=== PATIENT | male | born 1960 | race Hispanic/Latino ===

== ENCOUNTER 2017-02-12 14:39 | Inpatient (IN) | payer OTHER ==
[2017-02-12 16:36] LABS: BASO # 0.1 K/uL (0.0-0.2); BASO % 0.6 % (0.0-2.0); EOS % 0.3 % (0.0-4.0); HEMOGLOBIN 15.7 g/dL (12.0-18.0); LYMPH # 2.4 K/uL (1.0-4.3); LYMPH % 19.7 % (20.0-40.0); MEAN CELL VOLUME 84.1 fL (80.0-94.0); MEAN CORPUSCULAR HGB CONC 33.3 g/dL (33.0-37.0); MEAN PLATELET VOLUME 8.6 fL (7.2-11.7); MONO # 0.8 K/uL (0.0-0.8); MONO % 6.2 % (0.0-10.0); NEUT # 8.9 K/uL (1.8-7.0); NEUT % 73.2 % (50.0-75.0); NRBC % 0.2 % (0.0-2.0); RBC 5.6 Mil/uL (4.40-5.90); RED CELL DISTRIBUTION WIDTH 15.1 % (11.5-14.5); WHITE BLOOD COUNT 12.2 K/uL (4.8-10.8)
[2017-02-12 16:41] LABS: INR 1.2; PROTHROMBIN TIME 13.8 SECONDS (9.7-12.2)
[2017-02-12 16:43] LABS: ALB/GLOB RATIO 1.3 (1.0-2.1); ALT/SGPT 58 U/L (21-72); AST/SGOT 46 U/L (17-59); BLOOD UREA NITROGEN 16 mg/dL (9-20); CALCIUM 8.6 mg/dl (8.6-10.4); GFR AFRICAN-AMERICAN > 60; GFR NON-AFRICAN AMERICAN > 60; MAGNESIUM 1.8 mg/dL (1.6-2.3)
--- NOTE | 2017-02-12 16:43 | RAD ---
PROCEDURE: CHEST RADIOGRAPH, 1 VIEW HISTORY: SOB COMPARISON: None available. FINDINGS: LUNGS: Increase opacity medial right lung base - right medial basal infiltrate possible. Confluent right infrahilar pulmonary venous congestion early coalescent pulmonary edema another consideration. Chronicity unknown. Limited visualization of the left lung base/left hemidiaphragm PLEURA: Small left pleural effusion suspect. No pneumothorax CARDIOVASCULAR: Marked cardiomegaly central pulmonary vascular congestion OSSEOUS STRUCTURES: No significant abnormalities. VISUALIZED UPPER ABDOMEN: Normal. OTHER FINDINGS: None. IMPRESSION: Cardiomegaly and central pulmonary venous congestion. Small left pleural effusion probable. Medial right basal hazy opacity here a patchy infiltrate versus coalescent pulmonary edema are considerations. -chronicity of this appearance unknown. Large body habitus noted
[2017-02-12 16:55] LABS: B-TYPE NATRIURETIC PEPTIDE 2520 pg/mL (0-900)
[2017-02-12 17:00] LABS: FREE T4 1.46 ng/dL (0.78-2.19)
--- NOTE | 2017-02-12 17:45 | C.PDOC ---
Time Seen by Provider: 02/12/17 15:48 Chief Complaint (Nursing): Shortness Of Breath History Per: Patient Onset/Duration Of Symptoms: Days (about 2 weeks) Current Symptoms Are (Timing): Worse Exacerbating Factor(s): Exertion, Laying Flat Current Respiratory Medications: None Severity: Moderate Additional History Per: Prior Records Past Medical History Reviewed: Historical Data, Nursing Documentation, Vital Signs Vital Signs: Last Vital Signs Temp 98.9 F 02/12/17 15:18 Pulse 151 H 02/12/17 15:18 Resp 24 02/12/17 15:18 BP 143/84 02/12/17 15:18 Pulse Ox 94 L 02/12/17 17:45 - Medical History PMH: Atrial Fibrillation - [place] Procedures INSERT INDWELLING CATH (03/10/14) Family History: States: Unknown Family Hx - Social History Hx Tobacco Use: No Hx Alcohol Use: Yes Hx Substance Use: No - Immunization History Hx Tetanus Toxoid Vaccination: No Hx Influenza Vaccination: No Hx Pneumococcal Vaccination: No Review Of Systems Except As Marked, All Systems Reviewed And Found Negative. Constitutional: Negative for: Fever Cardiovascular: Positive for: Orthopnea Respiratory: Positive for: Shortness of Breath Gastrointestinal: Positive for: Abdominal Pain (distension). Negative for: Vomiting Genitourinary: Negative for: Dysuria Musculoskeletal: Negative for: Neck Pain, Back Pain, Leg Pain Skin: Negative for: Rash Neurological: Negative for: Weakness, Numbness Physical Exam - Physical Exam Appears: In Acute Distress Skin: Normal Color, Warm, Dry, No Rash Head: Atraumatic, Normacephalic Eye(s): bilateral: PERRL, EOMI Neck: Normal ROM, Supple Cardiovascular: Rhythm Irregular (tachycardia) Respiratory: No Accessory Muscle Use, Rales (at b/l bases) Gastrointestinal/Abdominal: Soft, No Tenderness Back: No CVA Tenderness Extremity: Normal ROM, Pedal Edema (trace), No Calf Tenderness Neurological/Psych: Oriented x3, Normal Motor, Normal Sensation ED Course And Treatment - Laboratory Results Result Diagrams: 02/12/17 16:27 02/12/17 16:27 Lab Interpretation: Abnormal Interpretation Of Abnormal: Elevated BNP ECG: Interpreted By Me, Viewed By Me ECG Rhythm: Atrial Fibrillation, Nonspecific Changes ECG Interpretation: Abnormal Interpretation Of ECG: Afib with RVR Rate From EC O2 Sat by Pulse Oximetry: 94 Pulse Ox Interpretation: Other Interpretation Of Abnormal: Borderline - Radiology CXR: Viewed By Me, Read By Radiologist CXR Interpretation: Yes: Cardiomegaly, Other (CHF) Progress Note: HR controlled with IV Cardizem. Reassessment Condition: Improved Progress - Interventions Interventions:: Observation, Oxygen - Medications Administered Intravenous: Other (Cardizem) - Data Reviewed Data Reviewed: Lab, Diagnostic imaging, EKG, Old records - Patient Status Patient status: Partially improved - Critical Care Citical Care: Excluding Proc Time Critical Care Time: 60 minutes - Continuity of Care Discussed patient case with:: Patient, ED Nurse, PMD - Patient Plan Patient Plan: Admission, Telemetry Disposition Discussed With Dr.: Umair Aparicio Comment: He accepted pt on his service. Doctor Will See Patient In The: Hospital Counseled Patient/Family Regarding: Studies Performed, Diagnosis - Disposition Disposition: HOSPITALIZED Disposition Time: 17:50 Condition: IMPROVED - Clinical Impression Clinical Impression: Rapid atrial fibrillation, New onset of congestive heart failure
[2017-02-13 06:21] LABS: HEMOGLOBIN 14.8 g/dL (12.0-18.0); MEAN CELL VOLUME 84.5 fL (80.0-94.0); MEAN CORPUSCULAR HEMOGLOBIN 28.7 pg (27.0-31.0); MEAN CORPUSCULAR HGB CONC 33.9 g/dL (33.0-37.0); RBC 5.18 Mil/uL (4.40-5.90); RED CELL DISTRIBUTION WIDTH 14.9 % (11.5-14.5); WHITE BLOOD COUNT 10.4 K/uL (4.8-10.8)
[2017-02-13 06:37] LABS: ALB/GLOB RATIO 1.2 (1.0-2.1); ALBUMIN 3.7 g/dL (3.5-5.0); ALT/SGPT 57 U/L (21-72); AST/SGOT 48 U/L (17-59); BLOOD UREA NITROGEN 19 mg/dL (9-20); CALCIUM 8.5 mg/dl (8.6-10.4); GFR AFRICAN-AMERICAN > 60; GFR NON-AFRICAN AMERICAN > 60
--- NOTE | 2017-02-13 07:19 | HP ---
HISTORY OF PRESENT ILLNESS: I was called on to the ER of [facility] for shortness of breath. This is a 56-year-old man with shortness of breath, who is a noncompliant according to my office. I sent him to web coordinator in the past. He did not really follow up. He has a history of CHF. He is morbidly obese. He has been dealing with shortness of breath for about 2 weeks. Following he came into the emergency room, when he started to lie flat, he could not do it. No acute vision or hearing changes. No sore throat. No chest pain, but shortness of breath. No palpitations. No nausea, vomiting, constipation, or diarrhea. Extremities are a little bit swollen. PAST MEDICAL HISTORY: Questionable hypertension with history. He had lot of tests done. SOCIAL HISTORY: Does drink alcohol. No tobacco. No substance abuse. PHYSICAL EXAMINATION: VITAL SIGNS: He has a temperature of 98.9, 151 pulse, respiratory rate 24, 143/84 blood pressure, and 94% O2 saturation. HEENT: Head: Atraumatic, normocephalic. Extraocular muscles are intact. Pupils are equal and reactive to light and accommodation. Throat is moist. NECK: Supple. Thyroid is midline. No palpable appreciable lymphadenopathy. HEART: Irregular rate, mary-tachy and irregular. LUNGS: Decreased breath sounds bilaterally. ABDOMEN: Morbidly obese. Soft, nontender. Positive bowel sounds. No guarding. No rebound. No CVA tenderness. EXTREMITIES: A +1/4 pitting edema bilaterally. SKIN: For the most part is intact. No apparent ulcers or rashes. NEUROLOGIC: Not anxious. LABORATORY DATA: He has 134 sodium, potassium is 4.4, BUN 16, creatinine 0.8,sugar is 109, calcium is 8.6, magnesium 1.8, total bilirubin is 1.4, AST is 46, ALT is 58, alkaline phosphatase 52, troponin I is 0.035, BNP is 2520 - quite high, total protein is 7.1, albumin is 4, TSH is 1.54, and INR is 1.2. He has 12.2 white count, 15.7 hemoglobin, 47.1 hematocrit, with 259 platelets. He did have a chest x-ray that showed cardiomegaly. He has pulmonary venous congestion as well as pleural effusion and possible patchy infiltrate. PLAN: We will have Pulmonary and Cardiology consults, IV antibiotics, IV Lasix, Cardizem p.o. for the time being, he was on IV Cardizem when he got here. Hopefully will do well, get oxygen, and telemetry. Umair Aparicio DO MTDKalina
--- NOTE | 2017-02-13 08:20 | PN ---
DATE: SUBJECTIVE: He is resting comfortably in Intensive Care Unit. His heart rate has been up and down to 120s to 130 with rapid AFib. He is on aspirin. He is on Cardizem, Lasix IV, Lovenox and Avelox. PHYSICAL EXAMINATION: GENERAL: He is sitting up, resting comfortably in bed, unaware of the rapid heart rate. VITAL SIGNS: 98 temp, 108 pulse, 116/88 blood pressure, 18 respiratory rate and 98% O2 sat on 2 L nasal cannula. HEENT: His head is atraumatic, normocephalic. HEART: Tachy and irregular. LUNGS: Decreased breath sounds, but clear. Less congestion. ABDOMEN: Soft, obese, nontender. EXTREMITIES: Less edema with Lasix. LABORATORY DATA: He has a 10.4 white count, better; 14.8 hemoglobin, 43.8 hematocrit with a 207 platelets. He has a 136 sodium, potassium 4.4, BUN 19, creatinine 0.8, GFR is greater than 60, sugar is 92, calcium is 8.5, total bili is 1.2, AST is 48, ALT is 57, alk phos 41, total protein 6.7, TSH is 1.54. ASSESSMENT AND PLAN: There is a consult with Pulmonary and consult with Cardiology pending. He is on antibiotics for pneumonia. He is on some Cardizem for rapid atrial fibrillation. We will have to increase that. Wait for Cardiology recommendation. He is on Lovenox. He is in the Intensive Care Unit. He is here for rapid atrial fibrillation and pneumonia. Umair Aparicio DO
[2017-02-13] MEDS: Enoxaparin 40 mg Syringe SC SCH (10:00)
[2017-02-13] MEDS: Moxifloxacin IV 400mg/250ml NS 400 MG/250 ML BAG IVPB SCH (10:00)
--- NOTE | 2017-02-13 13:54 | CP.PCM.CON ---
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 The pt was diagnosed with atrial fib two years ago, treated by Dr Giron of [place]. Pt had a cath, told of normal coronary arteries and reduced heart function. He took sotaolol and it mad him dizzy. He stopped it for this reason. Plavix, asa and later a NOAC all caused hematuria (pt sees Dr Lozano and has had a TURP). ECG demonstrated rapid atrial fib and cxr revealed chf. Pt's [id number] score is 1 Review of Systems - Review of Systems All systems: reviewed and no additional remarkable complaints except (as above) Past Patient History - Past Medical History & Family History Past Medical History?: Yes - Past Social History Smoking Status: Former Smoker - CARDIAC Hx Cardiac Disorders: Yes Hx Atrial Fibrillation: Yes - PULMONARY Hx Respiratory Disorders: No - NEUROLOGICAL Hx Neurological Disorder: No - HEENT Hx HEENT Problems: No - RENAL Hx Chronic Kidney Disease: No - ENDOCRINE/METABOLIC Hx Endocrine Disorders: No - HEMATOLOGICAL/ONCOLOGICAL Hx Blood Disorders: No - INTEGUMENTARY Hx Dermatological Problems: No - MUSCULOSKELETAL/RHEUMATOLOGICAL Hx Musculoskeletal Disorders: No Hx Falls: No - GASTROINTESTINAL Hx Gastrointestinal Disorders: No - GENITOURINARY/GYNECOLOGICAL Hx Genitourinary Disorders: Yes Hx Prostate Problems: Yes Other/Comment: Resected prostate 4 yrs ago - PSYCHIATRIC Hx Psychophysiologic Disorder: No Hx Substance Use: No - SURGICAL HISTORY Hx Surgeries: Yes Other/Comment: TURP 4yrs ago - ANESTHESIA Hx Anesthesia: Yes Hx Anesthesia Reactions: No Hx Malignant Hyperthermia: No Has any member of the family had a problem w/ anesthesia?: No Meds Allergies/Adverse Reactions: Allergies Allergy/AdvReac Type Severity Reaction Status Date / Time Penicillins Allergy Verified 02/12/17 15:21 - Medications Medications: Current Medications Aspirin (Aspirin Chewable) 81 mg PO DAILY [facility] Last Admin: 02/13/17 10:00 Dose: 81 mg Diltiazem HCl (Cardizem) 30 mg PO QID [facility] Last Admin: 02/13/17 10:00 Dose: 30 mg Enoxaparin Sodium (Lovenox) 40 mg SC DAILY [facility] Last Admin: 02/13/17 10:00 Dose: 40 mg Furosemide (Lasix) 40 mg IVP DAILY [facility] Last Admin: 02/13/17 10:00 Dose: 40 mg Moxifloxacin HCl (Avelox Iv 400mg/250ml Ns) 400 mg in 250 mls @ 167 mls/hr IVPB DAILY [facility] Last Admin: 02/13/17 10:00 Dose: 167 mls/hr Physical Exam - Constitutional Appears: Unkempt - Head Exam Head Exam: ATRAUMATIC - Eye Exam Eye Exam: EOMI Pupil Exam: PERRL - ENT Exam ENT Exam: Mucous Membranes Moist - Neck Exam Neck exam: Positive for: Normal Inspection - Respiratory Exam Respiratory Exam: Rales - Cardiovascular Exam Cardiovascular Exam: Irregular Rhythm - GI/Abdominal Exam GI & Abdominal Exam: Normal Bowel Sounds - Exam External exam: NORMAL EXTERNAL EXAM - Extremities Exam Extremities exam: Positive for: normal inspection - Back Exam Back exam: NORMAL INSPECTION - Neurological Exam Neurological exam: Alert, CN II-XII Intact, Oriented x3, Reflexes Normal - Psychiatric Exam Psychiatric exam: Normal Affect - Skin Skin Exam: Normal Color Results - Vital Signs Recent Vital Signs: Last Vital Signs Temp 98 F 02/13/17 05:00 Pulse 108 H 02/13/17 05:00 Resp 18 02/13/17 05:00 BP 129/90 02/13/17 10:00 Pulse Ox 98 02/13/17 05:00 - Labs Result Diagrams: 02/13/17 06:15 02/13/17 06:17 Labs: Laboratory Results - last 24 hr 02/12/17 02/12/17 02/12/17 16:27 16:27 16:27 WBC 12.2 H RBC 5.60 Hgb 15.7 Hct 47.1 MCV 84.1 MCH 28.0 MCHC 33.3 RDW 15.1 H Plt Count 259 MPV 8.6 Neut % (Auto) 73.2 Lymph % (Auto) 19.7 L Benson % (Auto) 6.2 Eos % (Auto) 0.3 Baso % (Auto) 0.6 Neut # 8.9 H Lymph # 2.4 Benson # 0.8 Eos # 0.0 Baso # 0.1 PT 13.8 H INR 1.2 APTT 27 Sodium 134 Potassium 4.4 Chloride 102 Carbon Dioxide 24 Anion Gap 12 BUN 16 Creatinine 0.8 Est GFR ( Amer) > 60 Est GFR (Non-Af Amer) > 60 Random Glucose 109 Calcium 8.6 Magnesium 1.8 Total Bilirubin 1.4 H AST 46 ALT 58 Alkaline Phosphatase 52 Troponin I 0.0350 NT-Pro-B Natriuret Pep 2520 H Total Protein 7.1 Albumin 4.0 Globulin 3.1 Albumin/Globulin Ratio 1.3 Free T4 TSH 3rd Generation 02/12/17 02/13/17 02/13/17 16:27 06:15 06:17 WBC 10.4 RBC 5.18 Hgb 14.8 Hct 43.8 MCV 84.5 MCH 28.7 MCHC 33.9 RDW 14.9 H Plt Count 207 MPV 9.0 Neut % (Auto) Lymph % (Auto) Benson % (Auto) Eos % (Auto) Baso % (Auto) Neut # Lymph # Benson # Eos # Baso # PT INR APTT Sodium 136 Potassium 4.4 Chloride 102 Carbon Dioxide 25 Anion Gap 13 BUN 19 Creatinine 0.8 Est GFR ( Amer) > 60 Est GFR (Non-Af Amer) > 60 Random Glucose 92 Calcium 8.5 L Magnesium Total Bilirubin 1.2 AST 48 ALT 57 Alkaline Phosphatase 41 Troponin I NT-Pro-B Natriuret Pep Total Protein 6.7 Albumin 3.7 Globulin 3.0 Albumin/Globulin Ratio 1.2 Free T4 1.46 TSH 3rd Generation 1.54 - EKG Data EKG Interpreted by: Myself (rapid atrial fibrillation, possible old IMI) Assessment & Plan - Assessment and Plan (Free Text) Assessment: 1. Rapid atrial fibrillaiton with chf. Plan 1. rate control: start beta ander. add meds for rate control as bp allows. 2. Low chads score. Pt has had bleeding risks in the past. will Rx with plavix/ asa 81 for now. Pt understands that if his rate cannot be controlled, or he is still symptomatic, then cardioversion would be advised, necessitating anticoagulation for at least 6 weeks post conversion. 3. echo to assess LV EF. 4. Outpatient sleep study is advised. 5. TSH
[2017-02-13] MEDS: Metoprolol Succinate 50 mg XL Tab PO SCH (14:21)
--- NOTE | 2017-02-14 06:52 | DS ---
HISTORY OF PRESENT ILLNESS: He is resting comfortably in bed. He is normal sinus rhythm. He can go for an echo this morning. He is doing much better. Cardiology says he can be discharged today. PHYSICAL EXAMINATION: VITAL SIGNS: 98 temp, 95 pulse, 116/83 blood pressure, 20 respiratory rate, 95% O2 sat on room air. GENERAL: He slept well. He is alert and oriented x3. HEENT: Head is atraumatic, normocephalic. HEART: Regular rate. LUNGS: Clear to auscultation. ABDOMEN: Soft, obese, nontender. Positive bowel sounds. EXTREMITIES: No edema. MEDICATIONS: He is currently on aspirin, Avelox, Cardizem, Lasix, Lovenox, Plavix and Toprol. LABORATORY DATA: He has a 136 sodium, potassium 4.4, BUN 19, creatinine 0.8, GFR is greater than 60, sugar is 92, calcium is 8.5, total bili is 1.2. AST is 48, ALT is 57, alk phos is 41. Troponin was 0.035. BNP was 2520 and 6.7 total protein and TSH is 1.54. INR is 1.2. 10.4 white count, 14.8 hemoglobin, 207 platelets. ASSESSMENT AND PLAN: He is doing better. He gets his echocardiogram today. I will keep him on his same medications. Follow up in the office in a week. He had rapid atrial fibrillation with congestive heart failure, pneumonia. Umair Aparicio DO
[2017-02-14] MEDS: Metoprolol Succinate 50 mg XL Tab PO SCH (10:50)
[2017-02-14] MEDS: Enoxaparin 40 mg Syringe SC SCH (10:50)
[2017-02-14] MEDS: Moxifloxacin IV 400mg/250ml NS 400 MG/250 ML BAG IVPB SCH (10:54)
[2017-02-14] MEDS ORDERED: Perflutren Lipid Microsphere 1.5 ML SUS IV ONE (12:22)
[2017-02-14] MEDS ORDERED: Metoprolol Succinate 100 mg XL Tab PO ONE (14:00)
[2017-02-14] MEDS ORDERED: Metoprolol Succinate 25 mg XL Tab PO ONE (14:00)
[2017-02-14 17:11] LABS: HEMOGLOBIN 14.6 g/dL (12.0-18.0); MEAN CELL VOLUME 85.1 fL (80.0-94.0); MEAN CORPUSCULAR HEMOGLOBIN 27.6 pg (27.0-31.0); MEAN CORPUSCULAR HGB CONC 32.4 g/dL (33.0-37.0); MEAN PLATELET VOLUME 8.4 fL (7.2-11.7); RBC 5.31 Mil/uL (4.40-5.90); RED CELL DISTRIBUTION WIDTH 15.3 % (11.5-14.5)
[2017-02-14 17:19] LABS: BLOOD UREA NITROGEN 18 mg/dL (9-20); CALCIUM 8.3 mg/dl (8.6-10.4); GFR AFRICAN-AMERICAN > 60; GFR NON-AFRICAN AMERICAN > 60; MAGNESIUM 1.8 mg/dL (1.6-2.3)
--- NOTE | 2017-02-14 19:10 | CARD ---
APPROVED REPORT EXAM: Two-dimensional and M-mode echocardiogram with Doppler, color Doppler with contrast. Other Information Quality : TDSRhythm : Atrial Fibrillation INDICATION Dyspnea Congestive Heart Failure Definity Contrast Used. 2D DIMENSIONS IVSd1.3 (0.7-1.1cm)LVDd7.0 (3.9-5.9cm) PWd1.2 (0.7-1.1cm)LVDs6.5 (2.5-4.0cm) FS (%) 7.1 %LVEF (%)15.3 (>50%) M-Mode DIMENSIONS Left Atrium (MM)5.76 (2.5-4.0cm)Aortic Root3.51 (2.2-3.7cm) Aortic Cusp Exc.2.09 (1.5-2.0cm) Mitral Valve MV E Gaojzjfl74.3cm/sE/A ratio0.0 TDI E/Lateral E'0.0E/Medial E'0.0 Tricuspid Valve TR Peak [id number]/sTR Peak Gr.[id number] LEFT VENTRICLE The Left Ventricle is moderately dilated. The ejection fraction is severely impaired. RIGHT VENTRICLE The right ventricle is normal size. ATRIA The left atrium is moderately dilated. AORTIC VALVE The aortic valve is normal in structure. MITRAL VALVE Mitral regurgitation is mild. TRICUSPID VALVE There is moderate tricuspid regurgitation. <Conclusion> Severe LV systlolic dysfunction. Dilated LA and LV. Mild MR. Moderate TR.
--- NOTE | 2017-02-15 07:04 | CARD ---
APPROVED REPORT EKG Measurement Heart [id number] <Conclusion> Atrial fibrillation with rapid ventricular response RSR' or QR pattern in V1 suggests right ventricular conduction delay Left anterior fascicular block ST & T wave abnormality, consider lateral ischemia Abnormal ECG
[2017-02-15 08:23] LABS: HEMOGLOBIN 15.5 g/dL (12.0-18.0); MEAN CELL VOLUME 84.3 fL (80.0-94.0); MEAN CORPUSCULAR HEMOGLOBIN 28.9 pg (27.0-31.0); MEAN CORPUSCULAR HGB CONC 34.2 g/dL (33.0-37.0); MEAN PLATELET VOLUME 8.6 fL (7.2-11.7); RBC 5.37 Mil/uL (4.40-5.90); RED CELL DISTRIBUTION WIDTH 15.5 % (11.5-14.5); WHITE BLOOD COUNT 10.6 K/uL (4.8-10.8)
[2017-02-15 08:45] LABS: ALB/GLOB RATIO 1.2 (1.0-2.1); ALBUMIN 3.7 g/dL (3.5-5.0); ALT/SGPT 45 U/L (21-72); AST/SGOT 42 U/L (17-59); BLOOD UREA NITROGEN 19 mg/dL (9-20); CALCIUM 8.5 mg/dl (8.6-10.4); GFR AFRICAN-AMERICAN > 60; GFR NON-AFRICAN AMERICAN > 60
--- NOTE | 2017-02-15 09:30 | CP.PCM.PN ---
Subjective - Date & Time of Evaluation Date of Evaluation: 02/15/17 Time of Evaluation: 09:28 - Subjective Subjective: Pt feels better. HR 110 BPM. EF is 15%. Objective - Vital Signs/Intake and Output Vital Signs (last 24 hours): Temp Pulse Resp BP Pulse Ox 98.0 F 95 H 18 122/88 95 02/15/17 08:53 02/15/17 08:53 02/15/17 08:53 02/15/17 08:53 02/15/17 08:53 - Medications Medications: Current Medications Aspirin (Aspirin Chewable) 81 mg PO DAILY [facility] Last Admin: 02/14/17 10:49 Dose: 81 mg Clopidogrel Bisulfate (Plavix) 75 mg PO DAILY [facility] Last Admin: 02/14/17 10:49 Dose: 75 mg Enoxaparin Sodium (Lovenox) 40 mg SC DAILY [facility] Last Admin: 02/14/17 10:50 Dose: 40 mg Furosemide (Lasix) 40 mg IVP DAILY [facility] Last Admin: 02/14/17 10:50 Dose: 40 mg Moxifloxacin HCl (Avelox Iv 400mg/250ml Ns) 400 mg in 250 mls @ 167 mls/hr IVPB DAILY [facility] Last Admin: 02/14/17 10:54 Dose: 167 mls/hr Lisinopril (Zestril) 5 mg PO DAILY [facility] Last Admin: 02/14/17 18:17 Dose: 5 mg Metoprolol Succinate (Toprol Xl) 100 mg PO DAILY [facility] Spironolactone (Aldactone) 25 mg PO DAILY [facility] Last Admin: 02/14/17 18:17 Dose: 25 mg - Labs Labs: 02/15/17 07:58 02/15/17 07:58 PT 13.8 SECONDS (9.7-12.2) H 02/12/17 16:27 INR 1.2 02/12/17 16:27 APTT 27 SECONDS (21-34) 02/12/17 16:27 - Constitutional Appears: Well - Head Exam Head Exam: NORMAL INSPECTION - Eye Exam Eye Exam: EOMI Pupil Exam: NORMAL ACCOMODATION - ENT Exam ENT Exam: Mucous Membranes Moist - Respiratory Exam Respiratory Exam: Clear to Ausculation Bilateral - Cardiovascular Exam Cardiovascular Exam: Irregular Rhythm - GI/Abdominal Exam GI & Abdominal Exam: Normal Bowel Sounds - Exam External exam: NORMAL EXTERNAL EXAM - Extremities Exam Extremities Exam: Normal Inspection - Neurological Exam Neurological Exam: Alert, Awake, Normal Gait, Oriented x3 - Psychiatric Exam Psychiatric exam: Normal Affect, Normal Mood Assessment and Plan - Assessment and Plan (Free Text) Assessment: Afib/CHF: 1. Plan is stop asa/plavix, start eliquis. If pt tolerates it and no hematuria, then outpatient cardioversion, followed by amiodarone. 2. Increases beta ander and increase cristino inhibitor. 3. Life vest. [facility]
[2017-02-15] MEDS: Metoprolol Succinate 100 mg XL Tab PO SCH (10:26)
[2017-02-15] MEDS: Moxifloxacin IV 400mg/250ml NS 400 MG/250 ML BAG IVPB SCH (10:26)
--- NOTE | 2017-02-15 12:51 | PN ---
DATE: SUBJECTIVE: I saw him in [facility], resting comfortably in bed. He slept fairly well last night. I was going to discharge him yesterday until his 2D echo came back at 10% ejection fraction and I believe Cardiology wants to place him with the vest and even possibly defibrillator. He is on Aldactone, aspirin, Avelox IV, Lasix, Lovenox, Plavix, metoprolol, Zestril. PHYSICAL EXAMINATION: VITAL SIGNS: 97.3 temperature, 73 pulse, 125/83 blood pressure, 18 respiratory rate, 95% O2 sat on room air. HEENT: Head is atraumatic, normocephalic. Throat is moist. NECK: Supple. HEART: Regular rate. LUNGS: Decreased breath sounds, were clear to auscultation. ABDOMEN: Morbidly obese. Soft, nontender. Positive bowel sounds. No guarding. No rebound. No CVA tenderness. EXTREMITIES: With no edema. LABORATORY DATA: He has a 10.6 white count, 15.5 hemoglobin, 45.3 hematocrit, and 247 platelets. He has a 133 sodium, potassium 4.1, BUN 19, creatinine 0.9, GFR greater than 60, sugar is 92, calcium is 8.5. Total bili is 1.3, AST is 42, ALT is 45, alkaline phosphatase 47. BNP was high as 2520, he is on Lasix. Total protein 6.7, TSH is 1.54. ASSESSMENT AND PLAN: He was seen by Dr. Leach. He had an echocardiogram. Because of low ejection fraction, severe left ventricular systolic dysfunction, dilated left atrium and left ventricle, we will see what the director process engineering wants to do next, as per Cardiology when he could be discharged. He has rapid atrial fibrillation, CHF, pneumonia, and now, might need to be in a LifeVest. Umair Aparicio DO MTDKalina
--- NOTE | 2017-02-15 17:24 | CP.PCM.PN ---
Subjective - Date & Time of Evaluation Date of Evaluation: 02/15/17 Time of Evaluation: 17:19 - Subjective Subjective: PATIENT WAS ADMITTED FOR RAPID AFIB AND NEW ONSET CHF; EF IS AROUD 15% CONSULT DR DIAZ HELP APPRECIATED CLEAR PATIENT TO DC ON ELIQUIS AND LIFEVEST PRIOR TO DC PATIENT HAD HEMATURIA NOTED BY THE STAFF NURSE PATIENT COMPLAINING OF HEMATURIA ON AND OFF EVERY TIME THAT A DOCTOR START HIM ON BLOOD [facility] COORDINATOR NOTIFIED DR DIAZ AND DR LOU CONSULT DR WAITE PENDING PATIENT WILL BE DC AFTER DR WAITE RECOMMENDATION Objective - Vital Signs/Intake and Output Vital Signs (last 24 hours): Temp Pulse Resp BP Pulse Ox 98.1 F 79 20 107/75 96 02/15/17 16:43 02/15/17 16:43 02/15/17 16:43 02/15/17 16:43 02/15/17 16:43 Intake and Output: 02/15/17 02/15/17 06:59 18:59 Intake Total 550 Balance 550 - Medications Medications: Current Medications Apixaban (Eliquis) 5 mg PO BID [facility] Last Admin: 02/15/17 10:27 Dose: Not Given Furosemide (Lasix) 40 mg IVP DAILY [facility] Last Admin: 02/15/17 10:25 Dose: 40 mg Moxifloxacin HCl (Avelox Iv 400mg/250ml Ns) 400 mg in 250 mls @ 167 mls/hr IVPB DAILY [facility] Last Admin: 02/15/17 10:26 Dose: 167 mls/hr Lisinopril (Zestril) 5 mg PO BID [facility] Last Admin: 02/15/17 10:25 Dose: 5 mg Metoprolol Succinate (Toprol Xl) 100 mg PO DAILY [facility] Last Admin: 02/15/17 10:26 Dose: 100 mg Spironolactone (Aldactone) 25 mg PO DAILY [facility] Last Admin: 02/15/17 10:25 Dose: 25 mg - Labs Labs: 02/15/17 07:58 02/15/17 07:58 PT 13.8 SECONDS (9.7-12.2) H 02/12/17 16:27 INR 1.2 02/12/17 16:27 APTT 27 SECONDS (21-34) 02/12/17 16:27
[2017-02-16 08:32] LABS: HEMOGLOBIN 14.8 g/dL (12.0-18.0); MEAN CELL VOLUME 85.1 fL (80.0-94.0); MEAN CORPUSCULAR HEMOGLOBIN 28.7 pg (27.0-31.0); MEAN CORPUSCULAR HGB CONC 33.7 g/dL (33.0-37.0); MEAN PLATELET VOLUME 8.3 fL (7.2-11.7); RBC 5.18 Mil/uL (4.40-5.90); RED CELL DISTRIBUTION WIDTH 14.8 % (11.5-14.5); WHITE BLOOD COUNT 9.2 K/uL (4.8-10.8)
[2017-02-16 08:43] LABS: ALBUMIN 3.3 g/dL (3.5-5.0); ALT/SGPT 42 U/L (21-72); AST/SGOT 35 U/L (17-59); BLOOD UREA NITROGEN 20 mg/dL (9-20); CALCIUM 8.1 mg/dl (8.6-10.4); GFR AFRICAN-AMERICAN > 60; GFR NON-AFRICAN AMERICAN > 60
[2017-02-16 08:46] LABS: ALB/GLOB RATIO 1.2 (1.0-2.1)
[2017-02-16] MEDS: Metoprolol Succinate 100 mg XL Tab PO SCH (09:30)
[2017-02-16] MEDS ORDERED: Iodixanol 320 MG/ML 100 ML BOTTLE IV ONE (11:46)
--- NOTE | 2017-02-16 13:39 | CT ---
PROCEDURE: CT Abdomen and Pelvis with and without intravenous contrast HISTORY: Hematuria COMPARISON: None. TECHNIQUE: Axial images of the abdomen were obtained in the pre contrast, portal venous and delayed phases of enhancement. Coronal and sagittal reformats were generated. Contrast dose: 100 mL Visipaque 320 Radiation dose: Total exam DLP = 4013.16 mGy-cm. This CT exam was performed using one or more of the following dose reduction techniques: Automated exposure control, adjustment of the mA and/or kV according to patient size, and/or use of iterative reconstruction technique. FINDINGS: LOWER THORAX: Unremarkable. The heart is mildly enlarged LIVER: Diffuse low-attenuation of the liver is noted suggestive of fatty liver. The portal vein is patent GALLBLADDER AND BILE DUCTS: Gallstones are noted without evidence of acute cholecystitis PANCREAS: The pancreas is grossly unremarkable. No evidence of pancreatic ductal dilatation. SPLEEN: Unremarkable. ADRENALS: Unremarkable. No mass. KIDNEYS AND URETERS: Unremarkable. No hydronephrosis. No solid mass. VASCULATURE: Unremarkable. No aortic aneurysm. BOWEL: Unremarkable. No obstruction. No gross mural thickening. APPENDIX: No evidence of appendicitis PERITONEUM: Unremarkable. No free fluid. No free air. LYMPH NODES: Unremarkable. No enlarged lymph nodes. BLADDER: There is large filling defect at the posterior lower portion of the bladder likely represent enlarged prostate protruding into the bladder lumen. REPRODUCTIVE: The prostate is markedly enlarged protruding and extending into the bladder lumen. BONES: No acute fracture. OTHER FINDINGS: None. IMPRESSION: No evidence of nephrolithiasis or hydronephrosis. No CT evidence of mass lesion in the kidneys. Moderately to markedly enlarged prostate protruding into the bladder lumen. Correlation with PSA level is suggested. The possibility of bladder mass is less likely. The urinary bladder is mildly distended demonstrate otherwise slight wall thickening. [id number] fatty liver. No evidence of acute pathology in the abdomen and pelvis otherwise.
--- NOTE | 2017-02-16 14:18 | PN ---
SUBJECTIVE: I saw Navid resting comfortably in bed, alert, understands why he could not be discharged yesterday. He has some hematuria. We are waiting for Urology to show up and give us their opinion. He had 1 episode of hematuria, now is back to normal urinating. He is on Aldactone, Avelox, Eliquis, Lasix, Toprol, Zestril. We are also waiting for the LifeVest that cannot be placed on him from Cardiology. He has multiple problems. He has got rapid AFib, LifeVest needed, CHF, hematuria, pneumonia, and also cardiomyopathy. He is resting comfortably in bed. We had a very long talk about diet, exercise, and losing weight. He is very motivated. PHYSICAL EXAMINATION: VITAL SIGNS: He has 97.7 temperature, 90 pulse, 121/91 blood pressure with 93/58 blood pressure, 112/78 blood pressure, 20 respiratory rate, 95% O2 saturation on room air. HEENT: His head is atraumatic, normocephalic. Throat is moist. NECK: Supple. HEART: Regular rate. LUNGS: Decreased breath sounds but clear. ABDOMEN: Soft, morbidly obese. EXTREMITIES: No edema. LABORATORY DATA: He has 9.2 white count, 14.8 hemoglobin, 44 hematocrit with 224 platelet. He has 133 sodium, potassium is 4, BUN is 20, creatinine 0.9, GFR is greater than 60, sugar is 87, calcium is 8.1, total bilirubin is 1.1, AST is 35, ALT is 42, alkaline phosphatase is 45, total protein 6.2, TSH is 1.54. ASSESSMENT AND PLAN: He is being seen by Cardiology, waiting for Urology. When I get their okay to be discharged, we will discharge him home. I spent 20 minutes talking about diet, exercise, and how to lose weight. Umair Aparicio DO
[2017-02-17 08:48] LABS: HEMOGLOBIN 15.1 g/dL (12.0-18.0); MEAN CELL VOLUME 84.1 fL (80.0-94.0); MEAN CORPUSCULAR HEMOGLOBIN 29.1 pg (27.0-31.0); MEAN CORPUSCULAR HGB CONC 34.6 g/dL (33.0-37.0); MEAN PLATELET VOLUME 8.4 fL (7.2-11.7); RBC 5.19 Mil/uL (4.40-5.90); RED CELL DISTRIBUTION WIDTH 14.9 % (11.5-14.5); WHITE BLOOD COUNT 8.5 K/uL (4.8-10.8)
[2017-02-17 09:03] LABS: ALB/GLOB RATIO 1.2 (1.0-2.1); ALBUMIN 3.7 g/dL (3.5-5.0); ALT/SGPT 46 U/L (21-72); AST/SGOT 37 U/L (17-59); BLOOD UREA NITROGEN 19 mg/dL (9-20); CALCIUM 8.3 mg/dl (8.6-10.4); GFR AFRICAN-AMERICAN > 60; GFR NON-AFRICAN AMERICAN > 60
[2017-02-17] MEDS: Metoprolol Succinate 100 mg XL Tab PO SCH (10:59)
--- NOTE | 2017-02-17 12:45 | PN ---
DATE: SUBJECTIVE: Navid is resting comfortably in bed. He slept well, still he did not have an Urology evaluation for the hematuria, it has gone away, he is doing well and waiting for the LifeVest to come in, I believe this is an insurance issue as per Cardiology. He is on Aldactone, Avelox, Eliquis, Lasix, Toprol, and Zestril. He is eating well. He is walking little bit well. He is comfortable. No chest pain, no shortness of breath, no abdominal pain. He just wants to get out here, wants the LifeVest, wants urological evaluation. PHYSICAL EXAMINATION VITAL SIGNS: He has 97.4 temperature, 85 pulse, 107/70 blood pressure, 20 respiratory rate, 95% saturation on room air. HEENT: Head is atraumatic, normocephalic. HEART: Regular rate. LUNGS: Clear to auscultation. ABDOMEN: Morbidly obese, nontender, positive bowel sounds, no guarding, no rebound, no CVA tenderness. No problems urinating at this time, it is clear and yellow. EXTREMITIES: No edema. LABORATORY DATA: He has a 9.2 white count, 14.8 hemoglobin, 44 hematocrit with 224,000 platelets. He has 133 sodium, potassium is 4, BUN is 20, creatinine 0.9, GFR is greater than 60, sugar is 87, calcium is 8.1, total bilirubin is 1.1, AST is 35, ALT is 42, alkaline phosphatase is 45, total protein 6.2, TSH is 1.54. He had a CAT scan of the abdomen and pelvis, which showed no evidence of nephrolithiasis, hydronephrosis. No CT evidence of mass lesions in the kidneys, moderately to marked enlarged prostate protruding to the bladder lumen. Elevation of PSA level suggested possibility of the bladder mass is less likely. Urinary bladder is mildly distended, demonstrated otherwise slight wall thickening, [id number] fatty liver. I will order a PSA, also blood test and will watch him very closely, wait for urological evaluation and LifeVest to come in. The patient has rapid AFib, CHF, hematuria, pneumonia, and cardiomyopathy. Umair Aparicio DO
[2017-02-17] MEDS: Vitamins A & D Oint UD Foilpak TOP SCH ×2 (14:32→17:54)
[2017-02-18 07:25] LABS: HEMOGLOBIN 16.4 g/dL (12.0-18.0); MEAN CELL VOLUME 84.5 fL (80.0-94.0); MEAN CORPUSCULAR HEMOGLOBIN 27.5 pg (27.0-31.0); MEAN CORPUSCULAR HGB CONC 32.6 g/dL (33.0-37.0); MEAN PLATELET VOLUME 7.9 fL (7.2-11.7); RBC 5.96 Mil/uL (4.40-5.90); RED CELL DISTRIBUTION WIDTH 15.3 % (11.5-14.5); WHITE BLOOD COUNT 7.8 K/uL (4.8-10.8)
[2017-02-18 08:12] LABS: ALB/GLOB RATIO 1.3 (1.0-2.1); ALBUMIN 3.8 g/dL (3.5-5.0); ALT/SGPT 44 U/L (21-72); AST/SGOT 41 U/L (17-59); BLOOD UREA NITROGEN 18 mg/dL (9-20); CALCIUM 8.3 mg/dl (8.6-10.4); GFR AFRICAN-AMERICAN > 60; GFR NON-AFRICAN AMERICAN > 60
[2017-02-18] MEDS: Vitamins A & D Oint UD Foilpak TOP SCH ×2 (10:24→18:27)
[2017-02-18] MEDS: Metoprolol Succinate 100 mg XL Tab PO SCH (10:26)
--- NOTE | 2017-02-19 06:57 | PN ---
DATE: SUBJECTIVE: I saw Navid sitting up in bed. He slept well last night. He had a lots of questions. He is on Aldactone, Avelox, Eliquis which is on hold, enema, Lasix, Lopressor, Toprol, Vitamin A and D and Zestril. The question is can he go home, come back on Saturday for the outpatient cystoscopy. Apparently, they did not do the cystoscopy yesterday. It was canceled because of the question if he was on any blood thinner or not. Also, the LifeVest people did not come yesterday. Now, we made a call, they are coming today. He want to know if it is okay with the biosolids management technician that if he went home today if they put the LifeVest on without any anticoagulant, come back on Saturday for an outpatient cystoscopy and then after that start the Eliquis because he has things he has to do at home. We will see what the biosolids management technician has to say. PHYSICAL EXAMINATION: VITAL SIGNS: He has a 99.6 temp, 95 pulse, 101/77 blood pressure, 20 respiratory rate and 96% O2 sat on room air. HEENT: His head is atraumatic, normocephalic. HEART: Regular rate. LUNGS: Clear to auscultation. ABDOMEN: Soft, obese, nontender. EXTREMITIES: Have no edema. LABORATORY DATA: He has a 134 sodium, potassium is 4.2, BUN 18, creatinine 1, GFR is greater than 60, sugar is 91, calcium is 8.3, total bili is 1.3, AST is 41, ALT is 44, alk phos 55, total protein 6.9. PSA is 10.3, elevated. WBC is 7.8, hemoglobin 16.4, hematocrit 50.8, platelets of 213. INR is 1.2. ASSESSMENT AND PLAN: As per Cardiology, possible cystoscopy. They will let me know later what the plan is after Cardiology makes the decision on discharge or hold until Saturday until the cystoscopy. Umair Aparicio DO
--- NOTE | 2017-02-19 08:17 | PN ---
DATE: SUBJECTIVE: I saw him resting comfortably in his bed. He is sitting up getting blood drawn. He understands he is going for a cystoscopy with Dr. Lozano, urologist, sometimes today for his hematuria. He is also having AFib and he also had a run of V-tach this morning. We will see if Dr. Leach to go for the urology procedure cystoscopy this morning. He is currently on Aldactone, Avelox, Eliquis, Lasix, Toprol, vitamin D and Zestril. Right now, he is back to his normal sinus rhythm. PHYSICAL EXAMINATION VITAL SIGNS: He has a 97.8 temperature, 95 pulse, 91/59 blood pressure, 20 respiratory rate, 94% O2 sat on room air. HEENT: Head is atraumatic and normocephalic. Throat is moist. NECK: Supple. HEART: Regular rate. LUNGS: Decreased breath sounds, but clear to auscultation. ABDOMEN: Soft, morbidly obese, nontender. EXTREMITIES: No edema. LABORATORY DATA: He has 8.5 white count, 15.1 hemoglobin, 46.6 hematocrit, with a 231 platelets. Sodium 133, potassium 4.1, BUN 19, creatinine 1, GFR is greater than 60, sugar is 89, calcium is 8.3, total bilirubin is 1.1, AST is 37, ALT is 46, alkaline phosphatase is 50, total protein 6.7. PSA 10.6. ASSESSMENT AND PLAN: We can do a cystoscopy possibly today if Cardiology clears him, because he had a run of ventricular tachycardia this morning. Continue with aggressive treatment and care We are also waiting for a LifeVest due to his heart condition. Umair Aparicio DO MTDKalina
[2017-02-19 08:25] LABS: HEMOGLOBIN 15.8 g/dL (12.0-18.0); MEAN CELL VOLUME 84.9 fL (80.0-94.0); MEAN CORPUSCULAR HEMOGLOBIN 28.3 pg (27.0-31.0); MEAN CORPUSCULAR HGB CONC 33.3 g/dL (33.0-37.0); MEAN PLATELET VOLUME 8.1 fL (7.2-11.7); RBC 5.6 Mil/uL (4.40-5.90); RED CELL DISTRIBUTION WIDTH 15.4 % (11.5-14.5); WHITE BLOOD COUNT 6.8 K/uL (4.8-10.8)
[2017-02-19 09:01] LABS: ALB/GLOB RATIO 1.2 (1.0-2.1); ALBUMIN 3.9 g/dL (3.5-5.0); ALT/SGPT 47 U/L (21-72); AST/SGOT 36 U/L (17-59); BLOOD UREA NITROGEN 16 mg/dL (9-20); CALCIUM 8.4 mg/dl (8.6-10.4); GFR AFRICAN-AMERICAN > 60; GFR NON-AFRICAN AMERICAN > 60
[2017-02-19] MEDS: Metoprolol Succinate 100 mg XL Tab PO SCH (09:56)
[2017-02-19] MEDS: Vitamins A & D Oint UD Foilpak TOP SCH ×2 (09:56→17:33)
[2017-02-19 12:10] LABS: INR 1.2; PROTHROMBIN TIME 13.2 SECONDS (9.7-12.2)
--- NOTE | 2017-02-19 14:52 | CP.PCM.PN ---
Subjective - Date & Time of Evaluation Date of Evaluation: 02/19/17 Time of Evaluation: 14:47 - Subjective Subjective: Pt feels good. Objective - Vital Signs/Intake and Output Vital Signs (last 24 hours): Temp Pulse Resp BP Pulse Ox 97.6 F 75 20 120/80 94 L 02/19/17 08:30 02/19/17 08:30 02/19/17 08:30 02/19/17 09:57 02/19/17 08:30 - Medications Medications: Current Medications Apixaban (Eliquis) 5 mg PO BID [facility] Last Admin: 02/16/17 18:09 Dose: Not Given Furosemide (Lasix) 40 mg IVP DAILY [facility] Last Admin: 02/19/17 09:57 Dose: 40 mg Lisinopril (Zestril) 5 mg PO BID [facility] Last Admin: 02/19/17 09:56 Dose: 5 mg Metoprolol Succinate (Toprol Xl) 100 mg PO DAILY [facility] Last Admin: 02/19/17 09:56 Dose: 100 mg Moxifloxacin HCl (Avelox) 400 mg PO DAILY [facility] Last Admin: 02/19/17 09:57 Dose: 400 mg Spironolactone (Aldactone) 25 mg PO DAILY [facility] Last Admin: 02/19/17 09:56 Dose: 25 mg Vitamin A (Vitamin A & D Oint Ud Foilpak) 1 ea TOP BID [facility] Last Admin: 02/19/17 09:56 Dose: 1 ea - Labs Labs: 02/19/17 08:16 02/19/17 08:16 PT 13.2 SECONDS (9.7-12.2) H 02/19/17 11:34 INR 1.2 02/19/17 11:34 APTT 31 SECONDS (21-34) 02/19/17 11:34 - Constitutional Appears: Well, Confused - Head Exam Head Exam: NORMAL INSPECTION - Eye Exam Eye Exam: EOMI - ENT Exam ENT Exam: Mucous Membranes Moist - Respiratory Exam Respiratory Exam: Clear to Ausculation Bilateral - Cardiovascular Exam Cardiovascular Exam: Irregular Rhythm - GI/Abdominal Exam GI & Abdominal Exam: Normal Bowel Sounds - Exam External exam: NORMAL EXTERNAL EXAM - Extremities Exam Extremities Exam: Full ROM - Back Exam Back Exam: NORMAL INSPECTION - Neurological Exam Neurological Exam: Alert, Awake, Normal Gait, Oriented x3 - Psychiatric Exam Psychiatric exam: Normal Affect - Skin Skin Exam: Dry Assessment and Plan - Assessment and Plan (Free Text) Plan: 1. Pt has compensated heart failure. 2. PO lasix. 3. Pt cannot be anti coagulated, for stroke prevention, or cardioversion ( recommended), until bleeding issues are resolved. 4. As pt has severely reduced LV EF, he is more sensitive to anesthesia, and increased risk 5. Recommend toprol day of surgery; if not tachycardia might ensue 6. Last plavix dose was saturday. tomorrow will be 5 days after plavix.
--- NOTE | 2017-02-20 08:09 | PN ---
DATE: SUBJECTIVE: I was shocked to find out he was still here. He was going to go home and do the cysto on Saturday and I found out this morning that he is doing cysto today, which is better. He is n.p.o. He is in good spirits. He is on Aldactone, Avelox, Demadex, Toprol, vitamin D, Zestril. He has been off of medicines for about 5 to 6 days now. It is better than going home and coming back. PHYSICAL EXAMINATION: VITAL SIGNS: He has a 98.4 temp, 110 pulse, 103/67 blood pressure, 20 respiratory rate, 97% O2 sat on room air. HEENT: His head is atraumatic, normocephalic. HEART: Regular rate. LUNGS: Clear to auscultation. ABDOMEN: Soft, obese. EXTREMITIES: No edema. He had many questions to me about the procedure and what is coming up next, so he has got in talk for a long time. LABORATORY DATA: He has a 6.8 white count, 15.8 hemoglobin, 47.5 hematocrit with a 212 platelets. His INR is 1.2. He has a 133 sodium, potassium is 4.4, BUN is 16, creatinine 1, GFR is greater than 60, sugar is 90, calcium is 8.4, total bili is 1.2, AST is 36, ALT is 47, alk phos is 50, total protein 7.1 and his PSA is elevated at 10.3. ASSESSMENT AND PLAN: We will see how he does with the cystoscopy today. There will be plans for recovery and then discharging on the LifeVest, probably Eliquis too if he can handle that, ask for Cardiology and I believe he might need cardioversion in the future if he does not maintain a regular rhythm. I discussed all of this with the patient and his family. This is a progress note on Navid Trevizo who has got irregular rhythm, hematuria with anticoagulation, cardiomyopathy and he will need a LifeVest. Umair Aparicio DO [facility]
[2017-02-20 08:33] LABS: HEMOGLOBIN 16.3 g/dL (12.0-18.0); MEAN CORPUSCULAR HEMOGLOBIN 28.1 pg (27.0-31.0); MEAN CORPUSCULAR HGB CONC 33.1 g/dL (33.0-37.0); MEAN PLATELET VOLUME 8.6 fL (7.2-11.7); RBC 5.81 Mil/uL (4.40-5.90); RED CELL DISTRIBUTION WIDTH 15.6 % (11.5-14.5); WHITE BLOOD COUNT 6.4 K/uL (4.8-10.8)
[2017-02-20] MEDS: Metoprolol Succinate 100 mg XL Tab PO SCH (09:45)
[2017-02-20] MEDS: Vitamins A & D Oint UD Foilpak TOP SCH ×2 (09:46→18:10)
[2017-02-20 10:10] LABS: ALB/GLOB RATIO 1.2 (1.0-2.1); ALT/SGPT 48 U/L (21-72); AST/SGOT 39 U/L (17-59); BLOOD UREA NITROGEN 20 mg/dL (9-20); CALCIUM 8.4 mg/dl (8.6-10.4); GFR AFRICAN-AMERICAN > 60; GFR NON-AFRICAN AMERICAN > 60
[2017-02-20] MEDS ORDERED: Propofol 10 mg/ml Inj (20 ML) ONE (11:05)
[2017-02-20] MEDS ORDERED: Midazolam 2 MG/2 ML VIAL ONE ×2 (11:05→12:25)
[2017-02-20 11:50] LABS: PLT BASE COUNT 217 K/uL
[2017-02-20 11:51] LABS: FUNCTIONING PLTS 181 K/uL; PLT(ADP) 36 K/uL
[2017-02-20] MEDS ORDERED: Lactated Ringer's 1,000 ML IV ONE (12:00)
[2017-02-20] MEDS: Ciprofloxacin 400mg/200ml D5W 400 MG/200 ML BAG IVPB ONE ×2 (12:05→12:23)
[2017-02-20] MEDS: Gentamicin 80 mg in 0.9% NS 80 MG/100 ML BAG IVPB SCH ×4 (12:08→21:02)
--- NOTE | 2017-02-20 15:50 | US ---
PROCEDURE: Ultrasound assistance for prostate biopsy HISTORY: INC PSA COMPARISON: None TECHNIQUE: Standard protocol for this study/examination. FINDINGS: Multiple images obtained during transrectal prostate ultrasound biopsy. IMPRESSION: Total prostate volume 168.43. PPSA 20.21
--- NOTE | 2017-02-20 15:51 | US ---
HISTORY: Transrectal prostate ultrasound TECHNIQUE/FINDINGS: Transrectal prostate ultrasound performed as guidance for ultrasound-directed biopsy procedures. OTHER FINDINGS: None IMPRESSION: As above.
[2017-02-20 23:47] VITALS: RESP 20
[2017-02-21] MEDS: Gentamicin 80 mg in 0.9% NS 80 MG/100 ML BAG IVPB SCH (04:32)
[2017-02-21 08:29] LABS: HEMOGLOBIN 16.2 g/dL (12.0-18.0); MEAN CELL VOLUME 84.8 fL (80.0-94.0); MEAN CORPUSCULAR HEMOGLOBIN 28.2 pg (27.0-31.0); MEAN CORPUSCULAR HGB CONC 33.2 g/dL (33.0-37.0); RBC 5.75 Mil/uL (4.40-5.90); RED CELL DISTRIBUTION WIDTH 15.1 % (11.5-14.5); WHITE BLOOD COUNT 8.9 K/uL (4.8-10.8)
[2017-02-21 08:44] VITALS: TEMP 97.6; O2SAT 93
[2017-02-21 08:56] LABS: ALB/GLOB RATIO 1.2 (1.0-2.1); ALT/SGPT 48 U/L (21-72); AST/SGOT 43 U/L (17-59); BLOOD UREA NITROGEN 17 mg/dL (9-20); CALCIUM 8.3 mg/dl (8.6-10.4); GFR AFRICAN-AMERICAN > 60; GFR NON-AFRICAN AMERICAN > 60
[2017-02-21 08:57] VITALS: BP 90/73; PULSE 71
--- NOTE | 2017-02-21 10:31 | OP ---
PROCEDURE DATE: 02/20/2017 INDICATIONS: Patient has recurrent hematuria secondary to blood thinning with Plavix and Lovenox. Exact cause of bleeding is being investigated. Patient had a CAT scan with and without IV contrast, but no evidence of any tumors of the bladder, ureter, or kidney. The patient was brought down to the OR for a cystoscopy, bladder and prostate biopsy. Recent PSA of 10. DESCRIPTION OF PROCEDURE: The patient was prepped and draped in the usual manner after mask anesthesia was given. Patient was placed on his side. Using ultrasound guided biopsy, two biopsies of the apex was done, right and left; two biopsies of the mid portion was done, right and left; and then base, two biopsies were done, right and left with total of 12 biopsies. There was no evidence of any rectal bleeding. The patient tolerated the biopsy with no problem. Then the patient was repositioned in lithotomy position for cystoscopy to investigate possibility of bladder tumor or abnormality in the bladder or urethra. Patient, then was prepped and draped. A #21 cystourethroscope was introduced into the bladder. The anterior and posterior urethra looked normal except there was some inflammation at the bladder neck on the right side with bullous edema. This area was then cauterized. The remainder of the prostatic urethra appeared normal. The bladder showed mild trabeculation throughout with no evidence of any tumor or abnormality or stones in the bladder. With this accomplished, the scope was removed. Patient tolerated the procedure well and left the OR in good condition. Felton Lozano MD
[2017-02-21] MEDS: Metoprolol Succinate 100 mg XL Tab PO SCH (11:40)
[2017-02-21] MEDS: Vitamins A & D Oint UD Foilpak TOP SCH (11:41)
[2017-02-21 11:42] LABS: URINE BILIRUBIN NEGATIVE (NEGATIVE); URINE BLOOD 3+ (NEGATIVE); URINE CLARITY Hazy (Clear); URINE COLOR Amber (YELLOW); URINE GLUCOSE (UA) NORMAL (Normal); URINE LEUKOCYTE ESTERASE NEG Leu/uL (Negative); URINE NITRATE NEGATIVE (NEGATIVE); URINE PROTEIN 2+ mg/dL (NEGATIVE); URINE UROBILINOGEN NORMAL mg/dL (0.2-1.0)
--- NOTE | 2017-02-21 14:18 | CP.PCM.PN ---
Subjective - Date & Time of Evaluation Date of Evaluation: 02/21/17 Time of Evaluation: 14:18 - Subjective Subjective: PATIENT WAS ADMITTED FOR RAPID AFIB NEW ONSET OF CHF; PATIENT AAOX3 ; DENIES CHEST PAIN, SOB, NAUSEA OR VOMITING; NO SIGN OF DISTRESS NOTED PATIENT WANTED TO GO HOME SOONER AND WAS COMPLAINING ABOUT HIM STAYING IN HOSPITAL FOR SO LONG; CORRECTIONAL SUPPLY SUPERVISOR EXPLAIN IN DETAIL THE REASON FOR HIS DELAY BECAUSE HE HAD A HEMATURIA ON THE DAY OF DISCHARGE AND WE HAVE TO HOLD HIS DISCHARGE AND CONSULT DR WAITE HIS URLOGY FOR FURTHER EVALUATION Objective - Vital Signs/Intake and Output Vital Signs (last 24 hours): Temp Pulse Resp BP Pulse Ox 97.6 F 71 20 90/73 L 93 L 02/21/17 07:45 02/21/17 08:57 02/21/17 07:45 02/21/17 08:57 02/21/17 07:45 Intake and Output: 02/21/17 02/21/17 06:59 18:59 Intake Total 280 Balance 280 - Medications Medications: Current Medications Gentamicin Sulfate 80 mg/ (Sodium Chloride) 102 mls @ 102 mls/hr IVPB Q8H [facility] Lisinopril (Zestril) 5 mg PO BID [facility] Last Admin: 02/21/17 11:41 Dose: Not Given Metoprolol Succinate (Toprol Xl) 100 mg PO DAILY [facility] Last Admin: 02/21/17 11:40 Dose: Not Given Moxifloxacin HCl (Avelox) 400 mg PO DAILY [facility] Last Admin: 02/21/17 11:40 Dose: 400 mg Spironolactone (Aldactone) 25 mg PO DAILY [facility] Last Admin: 02/21/17 11:43 Dose: Not Given Torsemide (Demadex) 20 mg PO DAILY [facility] Last Admin: 02/21/17 11:39 Dose: 20 mg Vitamin A (Vitamin A & D Oint Ud Foilpak) 1 ea TOP BID [facility] Last Admin: 02/21/17 11:41 Dose: Not Given - Labs Labs: 02/21/17 08:24 02/21/17 08:24 PT 13.2 SECONDS (9.7-12.2) H 02/19/17 11:34 INR 1.2 02/19/17 11:34 APTT 31 SECONDS (21-34) 02/19/17 11:34 Assessment and Plan - Assessment and Plan (Free Text) Assessment: A/P PATIENT WAS SEEN AND EXAMINED AT THE BEDSIDE S/P CYSTO AND STENT PLACEMENT URINE ANALYSIS IS POSITIVE; PATIENT WAS INSTRUCTED NOT TO START ASPRIN UNTIL HIS URIE IS GETTING CLEAR LIFEVEST IS ON AND WORKING ECHO WAS DONE AND VENTRICULAR FUNCTION IS SEVERELY IMPAIR AND PATIENT IS AWARE OF THE IMPORTANCE OF THE LIFEVEST PATIENT REFUSE HOME CARE AND ALSO PER CORRECTIONAL SUPPLY SUPERVISOR ASSESSMENT PATIENT CAN MANAGEMENT HIS FOLLOW UP APPOINTMENT AND MEDICATION DIRECTED DISCUSS CASE WITH DR SEALS, DR WAITE AND DR LOU WHO AGREE WITH THE PLAN FOLLOW UP WITH DR LOU AT HIS OFFICE---CALL HIS OFFICE FOR APPOINTMENT FOLLOW UP WITH DR DIAZ IN A WEEK AT HIS OFFICE---CALL FOR APPOINTMENT DONT NOT START ASPIRIN OR PLAVIX UNTIL YOU ARE PASSING CLEAR URINE FOLLOW UP WITH DR WAITE IN HER OFFICE ---CALL HIS OFFICE FOR APPOINTMENT CONTINUE ALL YOUR HOME MEDICATION NEW PRESCRIPTION GIVEN ASPIRIN 81 MG BY MOUTH DAILY UNTIL URINE IS CLEAR PLAVIX 75 MG BY MOUTH DAILY UNTIL URINE IS CLEAR TROPOL 100 MG BY MOUTH DAILY ALDACTONE 25 MG BY MOUTH DAILY TORSEMIDE 20 MG BY MOUTH DAILY CALL DR DIAZ OR DR LOU OR GO TO THE EMERGENCY ROOM IF SYMPTOMS RETURN OR WORSENING DISCUSS WITH PATIENT WHO AGREE AND VERBALIZED UNDERSTANDING
--- NOTE | 2017-02-21 22:41 | DS ---
HISTORY OF PRESENT ILLNESS: He tells me he is leaving today no matter what. He is currently on Aldactone, Avelox, Demadex. He is on gentamicin, Toprol, vitamin A and Zestril. He had a procedure yesterday with Urology. They did a biopsy, I believe, of the prostate. They cauterized an area that they felt was bleeding, not sure of his prostate cancer. They have to wait 3 or 4 days for the biopsy results to come back. PHYSICAL EXAMINATION: VITAL SIGNS: He has a 97.7 temp, 95 pulse, 101/70 blood pressure, 20 respiratory rate, 97% O2 sat on room air. HEENT: Head is atraumatic, normocephalic. HEART: Regular rate. LUNGS: Decreased breath sounds, but clear. ABDOMEN: Soft, morbidly obese, nontender. EXTREMITIES: No edema. LABORATORY DATA: He has a 6.4 white count, 16.3 hemoglobin, 49.3 hematocrit, with 211 platelets. He has a 134 sodium, potassium 4.1, BUN is 14, creatinine 1.1, GFR is greater than 60, sugar is 85, calcium is 8.4, total bilirubin is 0.9, AST is 39, ALT is 48, alkaline phosphatase is 57, total protein 7.4. His PSA was high at 10.3. He is being seen by the urologist and the physical aerodynamicist. He said he was leaving today. I think he probably could go today. Although he is on gentamicin, I am not sure what to make of the antibiotics. If it is okay with Cardiology and if it is okay with Urology, I will put the discharge in, otherwise he will have to sign himself out AMA. I will see him in the outpatient. I also spent about 10 minutes with him talking to him about a diet and how to lose weight. He was fairly resistant and wanted to talk to a dietitian and he goes to of the orchid worker. He had multiple issues while he was here. He had rapid atrial fibrillation, congestive heart failure, cardiomyopathy, 10% ejection fraction, morbidly obese, pneumonia and now he is going to be wearing a LifeVest, possible prostate cancer, elevated PSA, awaiting biopsy. He has to follow up with Urology and Cardiology and Dr. Aparicio on the outpatient basis. Umair Aparicio DO [facility] # [id number] MTDKalina
== END 2017-02-21 14:28 | disposition home or self-care (01) | DRG 987 ==
LOC: C.ER 14:39 → C.9E 17:51 → C.9I 19:42 → C.5S 02-13 13:23
PROVIDERS: ADMIT Family Medicine; ATTEND Family Medicine
PROC: 0VB07ZX Excision of Prostate, Via Natural or Artificial Opening, Diagnostic (ICD-10-PCS; principal; 2017-02-20 11:00)
PROC: 0T5C8ZZ Destruction of Bladder Neck, Via Natural or Artificial Opening Endoscopic (ICD-10-PCS; 2017-02-20 11:00)
DX: I48.91 Unspecified atrial fibrillation (principal); J18.9 Pneumonia, unspecified organism; I47.2 Ventricular tachycardia; D68.32 Hemorrhagic disorder due to extrinsic circulating anticoagulants; I50.9 Heart failure, unspecified; I42.9 Cardiomyopathy, unspecified; E66.01 Morbid (severe) obesity due to excess calories; Z91.19 Patient's noncompliance with other medical treatment and regimen; Z68.39 Body mass index [BMI] 39.0-39.9, adult; R31.9 Hematuria, unspecified; T45.515A Adverse effect of anticoagulants, initial encounter; Z87.891 Personal history of nicotine dependence; Z88.0 Allergy status to penicillin; Z79.82 Long term (current) use of aspirin

== ENCOUNTER 2017-03-15 07:59 | Inpatient (IN) | payer OTHER ==
[2017-03-15 08:04] VITALS: BMI 38.5
--- NOTE | 2017-03-15 08:19 | C.PDOC ---
Time Seen by Provider: 03/15/17 08:17 Chief Complaint (Nursing): Male Genitourinary Past Medical History Vital Signs: Last Vital Signs Temp 98 F 03/15/17 08:05 Pulse 150 H 03/15/17 08:05 Resp 32 H 03/15/17 08:05 BP 131/64 03/15/17 08:05 Pulse Ox 99 03/15/17 08:05 - Medical History PMH: Atrial Fibrillation Denies: Chronic Kidney Disease - [facility] Procedures DESTRUCTION OF BLADDER NECK, ENDO (02/12/17) EXCISION OF PROSTATE, VIA OPENING, DIAGN (02/12/17) INSERT INDWELLING CATH (03/10/14) Family History: States: Unknown Family Hx - Social History Hx Tobacco Use: No Hx Alcohol Use: No Hx Substance Use: No - Immunization History Hx Tetanus Toxoid Vaccination: No Hx Influenza Vaccination: No Hx Pneumococcal Vaccination: No ED Course And Treatment O2 Sat by Pulse Oximetry: 99 Disposition - Disposition
[2017-03-15] MEDS ORDERED: Verapamil 2 ML ONE (08:43)
[2017-03-15 08:46] LABS: BASO # 0.1 K/uL (0.0-0.2); BASO % 0.7 % (0.0-2.0); EOS # 0.1 K/uL (0.0-0.7); EOS % 0.5 % (0.0-4.0); LYMPH # 2.2 K/uL (1.0-4.3); MEAN CORPUSCULAR HEMOGLOBIN 28.8 pg (27.0-31.0); MEAN CORPUSCULAR HGB CONC 34.8 g/dL (33.0-37.0); MONO # 0.4 K/uL (0.0-0.8); MONO % 3.7 % (0.0-10.0); NEUT # 8.1 K/uL (1.8-7.0); NEUT % 75.1 % (50.0-75.0); RBC 5.23 Mil/uL (4.40-5.90); RED CELL DISTRIBUTION WIDTH 15.1 % (11.5-14.5); WHITE BLOOD COUNT 10.8 K/uL (4.8-10.8)
[2017-03-15 08:48] LABS: MEAN CELL VOLUME 82.6 fL (80.0-94.0)
--- NOTE | 2017-03-15 09:00 | RAD ---
Chest x-ray single frontal view History: Chest pain. Comparison: 02/12/2017 Findings: Mild venous congestion. Right hilar prominence. Cardiomegaly. Degenerative changes in the spine and shoulders. Impression: Mild venous congestion. Right hilar prominence. Cardiomegaly.
[2017-03-15 09:03] LABS: ALB/GLOB RATIO 1.3 (1.0-2.1); ALBUMIN 4.2 g/dL (3.5-5.0); ALT/SGPT 39 U/L (21-72); AST/SGOT 39 U/L (17-59); BLOOD UREA NITROGEN 23 mg/dL (9-20); CALCIUM 9.4 mg/dl (8.6-10.4); GFR AFRICAN-AMERICAN > 60; GFR NON-AFRICAN AMERICAN > 60
[2017-03-15] MEDS ORDERED: Sodium Chloride 0.9% 1,000 ML ONE (09:06)
[2017-03-15 09:11] LABS: INR 1.1; PROTHROMBIN TIME 12.8 SECONDS (9.7-12.2)
[2017-03-15 09:12] LABS: B-TYPE NATRIURETIC PEPTIDE 612 pg/mL (0-900)
[2017-03-15] MEDS ORDERED: Sodium Chloride 0.9% 500 ML IV ONE (09:15)
[2017-03-15 09:26] LABS: PARTIAL THROMBOPLASTIN TIME 29 SECONDS (21-34)
[2017-03-15 09:31] LABS: T3 1.96 nmol/L (1.49-2.60)
[2017-03-15 09:37] LABS: D DIMER < 200 ng/mlDDU (0-243)
[2017-03-15] MEDS ORDERED: Lidocaine 2% Jelly (Uro-Jet) ONE (09:50)
[2017-03-15 09:57] LABS: URINE CLARITY TURBID (Clear); URINE COLOR RED (YELLOW)
[2017-03-15 09:58] LABS: URINE BILIRUBIN LARGE (NEGATIVE); URINE BLOOD LARGE (NEGATIVE); URINE GLUCOSE (UA) 500 mg/dL (Normal); URINE NITRATE POSITIVE (NEGATIVE); URINE PROTEIN >=300 mg/dL (NEGATIVE); URINE UROBILINOGEN >8.0 mg/dL (0.2-1.0)
[2017-03-15 09:59] LABS: URINE BACTERIA RARE (<OCC); URINE LEUKOCYTE ESTERASE LARGE Leu/uL (Negative)
[2017-03-15] MEDS ORDERED: Sodium Chloride 0.45% 1,000 ML IV SCH (12:30)
--- NOTE | 2017-03-15 13:50 | C.PDOC ---
History Of Present Illness 56 y/o male presents to the ER for evaluation of gross blood noted in the urine which began last night. Patient states that he had decreased amount of output over the course of the night. Patient also admits to having suprapubic tenderness and not being able to pass urine.Patient admits to feeling anxious in the ER. Patient admits to having mild nausea and denies having fever, cough, and vomiting. Time Seen by Provider: 03/15/17 08:17 Chief Complaint (Nursing): Male Genitourinary History Per: Patient History/Exam Limitations: no limitations Onset/Duration Of Symptoms: Days Current Symptoms Are (Timing): Still Present Severity: Moderate Past Medical History Reviewed: Historical Data, Nursing Documentation, Vital Signs Vital Signs: Last Vital Signs Temp 97.8 F 03/15/17 17:30 Pulse 116 H 03/15/17 17:30 Resp 22 03/15/17 17:30 BP 101/66 03/15/17 17:30 Pulse Ox 98 03/15/17 17:43 - Medical History PMH: Atrial Fibrillation Denies: Chronic Kidney Disease Other Surgeries: Hx of surgeries - [facility] Procedures DESTRUCTION OF BLADDER NECK, ENDO (02/12/17) EXCISION OF PROSTATE, VIA OPENING, DIAGN (02/12/17) INSERT INDWELLING CATH (03/10/14) Family History: States: No Known Family Hx - Social History Hx Tobacco Use: No Hx Alcohol Use: No Hx Substance Use: No - Immunization History Hx Tetanus Toxoid Vaccination: No Hx Influenza Vaccination: No Hx Pneumococcal Vaccination: No Review Of Systems Except As Marked, All Systems Reviewed And Found Negative. Constitutional: Negative for: Fever, Chills Cardiovascular: Negative for: Chest Pain Respiratory: Negative for: Cough Gastrointestinal: Positive for: Nausea. Negative for: Vomiting Genitourinary: Positive for: Hematuria Physical Exam - Physical Exam Appears: Non-toxic, No Acute Distress, Other (anxious) Skin: Normal Color, Warm Head: Atraumatic, Normacephalic Eye(s): bilateral: Normal Inspection Nose: Normal Oral Mucosa: Moist Neck: Supple Chest: Symmetrical Cardiovascular: Rhythm Irregular (tachycardiac) Respiratory: Normal Breath Sounds, No Accessory Muscle Use, No Rales, No Rhonchi , No Wheezing Gastrointestinal/Abdominal: Normal Exam, Bowel Sounds (normal bowel sounds), Soft, Tenderness (suprapubic tenderness) Extremity: Normal ROM Neurological/Psych: Oriented x3, Normal Speech, Normal Motor, Normal Sensation ED Course And Treatment - Laboratory Results Result Diagrams: 03/15/17 15:57 03/15/17 08:43 ECG: Interpreted By Me ECG Rhythm: Atrial Fibrillation ECG Interpretation: Abnormal Interpretation Of ECG: left axis deviation with left anterior fascicular block Rate From EC O2 Sat by Pulse Oximetry: 98 (RA) Pulse Ox Interpretation: Normal - Other Rad No standard instances X-Ray: Viewed By Me, Read By Radiologist Interpretation: Chest x-ray single frontal view. History: Chest pain. Comparison: 02/12/2017. Findings: Mild venous congestion. Right hilar prominence. Cardiomegaly. Degenerative changes in the spine and shoulders. Impression: Mild venous congestion. Right hilar prominence. Cardiomegaly. Progress Note: Patient given Verapamil. Irrigation Parra placed with passing blood clots. Patient's heart rate imrpoved from the 80's to the 100's. Case discussed with , urologist, and Dr. Aparicio, medicine, who agree with the plan and treatment. Patient admitted to in Telemetry. Bladder irrigation continued. Critical Care Time - Critical Care Note Total Time (in mins): 45 Documented critical care: time excludes all time spent performing seperately billable procedures. Disposition - Disposition Disposition: HOSPITALIZED Disposition Time: 09:40 Condition: FAIR - Clinical Impression Clinical Impression: Rapid atrial fibrillation, Hematuria - Scribe Statement The provider has reviewed the documentation as recorded by the Ashlie Israel Provider Attestation: All medical record entries made by the Ashlie were at my direction and personally dictated by me. I have reviewed the chart and agree that the record accurately reflects my personal performance of the history, physical exam, medical decision making, and the department course for this patient. I have also personally directed, reviewed, and agree with the discharge instructions and disposition.
[2017-03-15] MEDS ORDERED: Propofol 10 mg/ml Inj (20 ML) ONE (14:45)
[2017-03-15] MEDS ORDERED: Midazolam 2 MG/2 ML VIAL ONE (14:45)
[2017-03-15] MEDS ORDERED: Ciprofloxacin 400mg/200ml D5W 400 MG/200 ML BAG IVPB ONE (15:05)
[2017-03-15 16:05] LABS: HEMOGLOBIN 13.7 g/dL (12.0-18.0); MEAN CELL VOLUME 82.1 fL (80.0-94.0); MEAN PLATELET VOLUME 7.8 fL (7.2-11.7); RBC 4.88 Mil/uL (4.40-5.90); RED CELL DISTRIBUTION WIDTH 14.8 % (11.5-14.5)
[2017-03-15] MEDS ORDERED: Acetaminophen-Codeine 300/30 mg Tab PO PRN (16:57)
[2017-03-15] MEDS ORDERED: Lactated Ringer's 1,000 ML IV ONE ×2 (16:59→17:26)
--- NOTE | 2017-03-15 17:16 | CP.PCM.CON ---
History of Present Illness - History of Present Illness History of Present Illness: The pt is a 56 year old man with a severe dilated cardiomyopathy and atrial fibrillation. He allegedly had a normal cardiac cath a few years ago when he presented with atrial fibrillation. He was followed by another gear and spline grinder, but did not follow up and eventually stopped all meds. He arrived at last month, in rapid atrial fibrillation and echo confirmed severely reduced diffuse left ventricuarl systolic function. pt was placed on chf meds, but bled with anticoagulation. Pt has a history of prostatitis and had undergone Gu procedures before with Dr Lozano. After OR treatment by Dr Lozano, anticoagulation was tentatively started and pt well for 2.5 weeks without any bleeding. This Am , he had gross hematuria and came to . Dr Lozano did an emergency sycto, and evacuated clots and did a fulgaration. pt is now in recovery and tolerated the procedure well. pt has been wearing a life vest. he has done well with med titration, was started on entresto and coreg dose increased. Also aldactone. Po lasix dose was tapered. pt mantilla been trying to lose weight, and exercise capacity was improved. Pt had elected to take anticoagulation for 8 weeks, and if no bleeding, would have tried amiodarone for a chemical conversion. If unsuccessful, he would then have agreed to an attempt an electrical cardioversion. Review of Systems - Review of Systems All systems: reviewed and no additional remarkable complaints except (as above) Past Patient History - Past Medical History & Family History Past Medical History?: Yes - Past Social History Smoking Status: Former Smoker - CARDIAC Hx Atrial Fibrillation: Yes - PULMONARY Hx Respiratory Disorders: No - NEUROLOGICAL Hx Neurological Disorder: No - HEENT Hx HEENT Problems: No - RENAL Hx Chronic Kidney Disease: No - ENDOCRINE/METABOLIC Hx Endocrine Disorders: No - HEMATOLOGICAL/ONCOLOGICAL Hx Blood Disorders: No - INTEGUMENTARY Hx Dermatological Problems: No - MUSCULOSKELETAL/RHEUMATOLOGICAL Hx Falls: No - GASTROINTESTINAL Hx Gastrointestinal Disorders: No - GENITOURINARY/GYNECOLOGICAL Hx Genitourinary Disorders: Yes Hx Prostate Problems: Yes Other/Comment: Resected prostate 4 yrs ago - PSYCHIATRIC Hx Substance Use: No - SURGICAL HISTORY Hx Surgeries: Yes Other/Comment: TURP 4yrs ago - ANESTHESIA Hx Anesthesia: Yes Hx Anesthesia Reactions: No Hx Malignant Hyperthermia: No Meds Allergies/Adverse Reactions: Allergies Allergy/AdvReac Type Severity Reaction Status Date / Time Penicillins Allergy Verified 02/12/17 15:21 - Medications Medications: Current Medications Acetaminophen/Codeine Phosphate (Tylenol/Codeine 300 Mg/30 Mg) 1 ea PO Q4 PRN PRN Reason: Pain, moderate (4-7) Hydromorphone HCl (Dilaudid) 0.5 mg IVP Q10M PRN PRN Reason: Pain, moderate (4-7) Stop: 03/15/17 18:28 Sodium Chloride (Sodium Chloride 0.45%) 1,000 mls @ 80 mls/hr IV .[id number] PADMINI Last Admin: 03/15/17 12:44 Dose: 80 mls/hr Lactated Ringer's (Lactated Ringer's) 1,000 mls @ 50 mls/hr IV .Q20H ONE Stop: 03/16/17 12:58 Ciprofloxacin (Cipro 400mg/200ml Dsw) 400 mg in 200 mls @ 133 mls/hr IVPB Q12H [facility] Ondansetron HCl (Zofran Inj) 4 mg IVP ONCE PRN PRN Reason: Nausea/Vomiting Stop: 03/15/17 18:28 Last Admin: 03/15/17 16:31 Dose: 4 mg Physical Exam - Constitutional Appears: Well - Head Exam Head Exam: NORMAL INSPECTION - Eye Exam Eye Exam: EOMI Pupil Exam: NORMAL ACCOMODATION - ENT Exam ENT Exam: Mucous Membranes Moist - Neck Exam Neck exam: Positive for: Full Rom - Respiratory Exam Respiratory Exam: Clear to Auscultation Bilateral - Cardiovascular Exam Cardiovascular Exam: Irregular Rhythm - GI/Abdominal Exam GI & Abdominal Exam: Normal Bowel Sounds - Exam External exam: NORMAL EXTERNAL EXAM - Extremities Exam Extremities exam: Positive for: normal inspection - Back Exam Back exam: NORMAL INSPECTION - Neurological Exam Neurological exam: Alert, CN II-XII Intact, Oriented x3, Reflexes Normal - Psychiatric Exam Psychiatric exam: Normal Affect - Skin Skin Exam: Normal Color Results - Vital Signs Recent Vital Signs: Last Vital Signs Temp 97.5 F L 03/15/17 12:29 Pulse 122 H 03/15/17 12:29 Resp 20 03/15/17 12:29 BP 113/71 03/15/17 14:07 Pulse Ox 98 03/15/17 14:07 - Labs Result Diagrams: 03/15/17 15:57 03/15/17 08:43 Labs: Laboratory Results - last 24 hr 03/15/17 03/15/17 03/15/17 08:43 08:43 08:43 WBC 10.8 RBC 5.23 Hgb 15.0 Hct 43.2 MCV 82.6 D MCH 28.8 MCHC 34.8 RDW 15.1 H Plt Count 272 MPV 8.0 Neut % (Auto) 75.1 H Lymph % (Auto) 20.0 [place] % (Auto) 3.7 Eos % (Auto) 0.5 Baso % (Auto) 0.7 Neut # (Auto) 8.1 H Lymph # (Auto) 2.2 [place] # (Auto) 0.4 Eos # (Auto) 0.1 Baso # (Auto) 0.1 PT 12.8 H INR 1.1 APTT 29 D-Dimer, Quantitative < 200 Sodium 135 Potassium 4.2 Chloride 103 Carbon Dioxide 16 L Anion Gap 20 BUN 23 H Creatinine 1.2 Est GFR ( Amer) > 60 Est GFR (Non-Af Amer) > 60 Random Glucose 190 H Calcium 9.4 Total Bilirubin 0.9 AST 39 ALT 39 Alkaline Phosphatase 63 Troponin I < 0.0120 NT-Pro-B Natriuret Pep 612 Total Protein 7.3 Albumin 4.2 Globulin 3.1 Albumin/Globulin Ratio 1.3 Free T4 Total T3 1.96 TSH 3rd Generation 1.97 Urine Color Urine Clarity Urine pH Ur Specific [place] Urine Protein Urine Glucose (UA) Urine Ketones Urine Blood Urine Nitrate Urine Bilirubin Urine Urobilinogen Ur Leukocyte Esterase Urine WBC (Auto) Urine RBC (Auto) Urine Bacteria Blood Type Antibody Screen 03/15/17 03/15/17 03/15/17 08:43 09:28 10:19 WBC RBC Hgb Hct MCV MCH MCHC RDW Plt Count MPV Neut % (Auto) Lymph % (Auto) [place] % (Auto) Eos % (Auto) Baso % (Auto) Neut # (Auto) Lymph # (Auto) [place] # (Auto) Eos # (Auto) Baso # (Auto) PT INR APTT D-Dimer, Quantitative Sodium Potassium Chloride Carbon Dioxide Anion Gap BUN Creatinine Est GFR ( Amer) Est GFR (Non-Af Amer) Random Glucose Calcium Total Bilirubin AST ALT Alkaline Phosphatase Troponin I NT-Pro-B Natriuret Pep Total Protein Albumin Globulin Albumin/Globulin Ratio Free T4 1.47 Total T3 TSH 3rd Generation Urine Color Red Urine Clarity Turbid Urine pH 7.0 Ur Specific [place] 1.015 Urine Protein >=300 Urine Glucose (UA) 500 Urine Ketones >80 Urine Blood Large Urine Nitrate Positive H Urine Bilirubin Large Urine Urobilinogen >8.0 Ur Leukocyte Esterase Large Urine WBC (Auto) 50 H Urine RBC (Auto) 5000 H Urine Bacteria Rare Blood Type B NEGATIVE Antibody Screen Negative 03/15/17 03/15/17 15:57 15:57 WBC 13.0 H RBC 4.88 Hgb 13.7 Hct 40.1 MCV 82.1 MCH 28.0 MCHC 34.0 RDW 14.8 H Plt Count 247 MPV 7.8 Neut % (Auto) Lymph % (Auto) [place] % (Auto) Eos % (Auto) Baso % (Auto) Neut # (Auto) Lymph # (Auto) [place] # (Auto) Eos # (Auto) Baso # (Auto) PT INR APTT D-Dimer, Quantitative Sodium Potassium Chloride Carbon Dioxide Anion Gap BUN Creatinine Est GFR ( Amer) Est GFR (Non-Af Amer) Random Glucose Calcium Total Bilirubin AST ALT Alkaline Phosphatase Troponin I NT-Pro-B Natriuret Pep Total Protein Albumin Globulin Albumin/Globulin Ratio Free T4 Total T3 TSH 3rd Generation Urine Color Urine Clarity Urine pH Ur Specific [place] Urine Protein Urine Glucose (UA) Urine Ketones Urine Blood Urine Nitrate Urine Bilirubin Urine Urobilinogen Ur Leukocyte Esterase Urine WBC (Auto) Urine RBC (Auto) Urine Bacteria Blood Type B NEGATIVE Antibody Screen Negative - EKG Data EKG Interpreted by: Myself (atrial fibrillation, no ischemic changhes) Assessment & Plan - Assessment and Plan (Free Text) Assessment: 1. Plan: resume CV meds: entresto, coreg, aldactone. Lasix as needed. No anticoagulation for now. Monitor for chf , as pt has received IV fluids. Consider adding digoxin for additional heart rate control, 2. Dr Lozano is to contact physcians at [place] for embolization. Once that occurs, and bleeding risk is less, anticoagulation can be tried again, and there is a consideration of a watchman device However, the watchman requires 1- 2 months of anticoagulation after the procedure.
[2017-03-15] MEDS ORDERED: Sodium Chloride 0.9% 1,000 ML IV ONE (17:30)
[2017-03-15 18:48] VITALS: RESP 20
[2017-03-15] MEDS: Ciprofloxacin 400mg/200ml D5W 400 MG/200 ML BAG IVPB SCH (20:23)
[2017-03-15] MEDS: Sodium Chloride 0.45% 1,000 ML IV SCH (21:00)
[2017-03-15] MEDS: Sacubitril/Valsartan 24-26mg Tab PO SCH (22:00)
--- NOTE | 2017-03-16 03:52 | CON ---
DATE: The patient was admitted to the emergency room with gross hematuria. The patient was on Eliquis for atrial fibrillation and was brought to the ER. The patient was then brought up to the OR. A cystoscopy was then done. There were multiple clots in the bladder, measuring probably up to about a blood. These were all evacuated. There was a bleeder at the bladder neck on the right, which was cauterized. The remainder of the prostate looked normal. However, there may have been bleeders that you could not see because of the abutting of the prostatic lobes. The bladder was clear. No evidence of any bleeding from the bladder. A #24 Parra was inserted. The clots were irrigated. Continuous irrigation was done. There was slight heme-tinged return. The patient, otherwise, now is stable. Felton Lozano MD
[2017-03-16] MEDS: Ciprofloxacin 400mg/200ml D5W 400 MG/200 ML BAG IVPB SCH ×2 (06:40→19:02)
[2017-03-16 09:53] LABS: BASO % 0.3 % (0.0-2.0); EOS % 0.3 % (0.0-4.0); HEMOGLOBIN 12.2 g/dL (12.0-18.0); LYMPH # 1.5 K/uL (1.0-4.3); LYMPH % 17.2 % (20.0-40.0); MEAN CORPUSCULAR HEMOGLOBIN 28.7 pg (27.0-31.0); MEAN CORPUSCULAR HGB CONC 34.6 g/dL (33.0-37.0); MONO # 0.6 K/uL (0.0-0.8); MONO % 6.5 % (0.0-10.0); NEUT # 6.7 K/uL (1.8-7.0); NEUT % 75.7 % (50.0-75.0); RBC 4.27 Mil/uL (4.40-5.90); RED CELL DISTRIBUTION WIDTH 15.2 % (11.5-14.5); WHITE BLOOD COUNT 8.9 K/uL (4.8-10.8)
[2017-03-16 09:56] LABS: ALB/GLOB RATIO 1.2 (1.0-2.1); ALBUMIN 3.4 g/dL (3.5-5.0); ALT/SGPT 29 U/L (21-72); AST/SGOT 26 U/L (17-59); BLOOD UREA NITROGEN 14 mg/dL (9-20); CALCIUM 8.7 mg/dl (8.6-10.4); GFR AFRICAN-AMERICAN > 60; GFR NON-AFRICAN AMERICAN > 60
[2017-03-16 10:18] LABS: INR 1.2; PROTHROMBIN TIME 13.7 SECONDS (9.7-12.2)
[2017-03-16] MEDS: Sacubitril/Valsartan 24-26mg Tab PO SCH ×2 (10:52→17:30)
--- NOTE | 2017-03-16 11:33 | PN ---
SUBJECTIVE: I saw Navid resting comfortably in bed, he had a very busy day yesterday. He had a cystoscopy with Dr. Cunningham, urologist to cauterize and got rid of bladder clots in his bladder. Now the urine is clear, yellow, no more blood. He also was seen by Dr. Leach, the aircraft maintenance engineer, there might be a plan of ablation in his future, also there might be a plan to transfer him after 2 days of rest to another hospital for more invasive procedure of the prostate where it was bleeding from, but he is comfortable now, resting in bed, he understands the procedure, no pain. PHYSICAL EXAMINATION: VITAL SIGNS: He has 98.3 temperature, 69 pulse, 106/70 blood pressure, 20 respiratory rate, 99% O2 sat on room air. HEENT: Head is atraumatic and normocephalic. Throat is moist. NECK: Supple. HEART: Regular rate. LUNGS: Decreased breath sounds, but clear. ABDOMEN: Soft, nontender. Positive bowel sounds, obese. EXTREMITIES: No edema. : He has got a Parra in place with clear urine. MEDICATIONS: He is currently on Aldactone, Cipro IV, Coreg, and lactated ringers, IV fluids and Tylenol and Codeine for pain. LABORATORY DATA: He has 13,000 white count; we will keep an eye on that, he is on Cipro, 13.7 hemoglobin, 40.1 hematocrit with 247 platelets, 1.1 INR. He has 135 sodium, potassium 4.2, BUN 23, creatinine 1.2, GFR is greater than 60, sugar is 90, calcium is 9.4. Total bilirubin 0.9, AST is 39, ALT is 39, alkaline phosphatase is 53, troponin is less than 0.01, pro-BNP of 612, I will cut down some of the IV fluids. TSH is 1.97. ASSESSMENT AND PLAN: We will consult with urology and cardiology status post procedure. He is here for gross hematuria, atrial fibrillation. He was in a LifeVest at onetime. He had multiple clots in the bladder. Also, we will continue with cardiology and I believe the hospital embolization of the prostate. Continue with aggressive treatment and care, keep him in bed. I will decrease the IV fluids a little bit because of the congestive heart failure possibilities. Answered many questions to him. We will check his labs tomorrow. Umair Aparicio DO MTDD
[2017-03-16] MEDS: Sodium Chloride 0.45% 1,000 ML IV SCH (17:31)
[2017-03-17] MEDS: Ciprofloxacin 400mg/200ml D5W 400 MG/200 ML BAG IVPB SCH ×2 (06:14→19:08)
[2017-03-17] MEDS: Sodium Chloride 0.45% 1,000 ML IV SCH ×2 (06:17→17:45)
[2017-03-17 09:03] LABS: BASO % 0.3 % (0.0-2.0); EOS # 0.1 K/uL (0.0-0.7); HEMOGLOBIN 12.1 g/dL (12.0-18.0); LYMPH # 1.7 K/uL (1.0-4.3); LYMPH % 21.2 % (20.0-40.0); MEAN CELL VOLUME 82.5 fL (80.0-94.0); MEAN CORPUSCULAR HEMOGLOBIN 28.6 pg (27.0-31.0); MEAN CORPUSCULAR HGB CONC 34.6 g/dL (33.0-37.0); MEAN PLATELET VOLUME 7.7 fL (7.2-11.7); MONO # 0.4 K/uL (0.0-0.8); MONO % 5.6 % (0.0-10.0); NEUT # 5.8 K/uL (1.8-7.0); NEUT % 71.9 % (50.0-75.0); RBC 4.25 Mil/uL (4.40-5.90); RED CELL DISTRIBUTION WIDTH 14.8 % (11.5-14.5)
[2017-03-17 09:08] LABS: INR 1.1; PROTHROMBIN TIME 12.7 SECONDS (9.7-12.2)
[2017-03-17 09:18] LABS: ALB/GLOB RATIO 1.2 (1.0-2.1); ALBUMIN 3.4 g/dL (3.5-5.0); ALT/SGPT 30 U/L (21-72); AST/SGOT 29 U/L (17-59); BLOOD UREA NITROGEN 10 mg/dL (9-20); CALCIUM 8.2 mg/dl (8.6-10.4); GFR AFRICAN-AMERICAN > 60; GFR NON-AFRICAN AMERICAN > 60
[2017-03-17] MEDS: Sacubitril/Valsartan 24-26mg Tab PO SCH ×2 (09:41→17:45)
--- NOTE | 2017-03-17 11:19 | PN ---
DATE: SUBJECTIVE: I saw Navid resting comfortably in bed, he had a rough night, while putting the LifeVest he had to move around and he started having some blood in his Parra. He had some blood clots had to be irrigated, now everything is fine again. Urine is clear. He is comfortable, lying flat, he is not supposed to move, hopefully, we will get him to 24 to 48 hours for an embolization of the prostate. MEDICATIONS: He is on Aldactone, Cipro, Coreg, Entresto, IV fluids, and Tylenol with Codeine for pain. PHYSICAL EXAMINATION: GENERAL: He is alert. He is eating. He is comfortable at this time. VITAL SIGNS: He has 98.3 temperature, 89 pulse, 94/62 blood pressure, 20 respiratory rate, and 95% saturation on room air. HEENT: Head is atraumatic, normocephalic. HEART: Regular rate. LUNGS: Decreased breath sounds, but clear. ABDOMEN: Soft, obese and nontender. He is trying to lose weight. EXTREMITIES: No edema. : Urine is clear and yellow in the Parra catheter. LABORATORY DATA: He has a 8.9 white count better, 12.2 hemoglobin, 35.4 hematocrit with 192 platelets, 135 sodium, potassium is 4.6, BUN is 14, creatinine is 1, GFR is greater than 60, sugar is 118, calcium is 8.7, total bilirubin is 0.1, AST is 26, ALT is 29, alk phos is 39, troponin I is less than 0.01, total protein is 6.1, albumin is 3.4, TSH is 1.97. Urine, he did have a lot of blood in the urine now it is much clear. PLAN: He is being seen by Urology and Cardiology. prostate embolization. Continue with aggressive treatment and care. We will check his labs tomorrow. Hopefully, in next 24 to 48 hours, we could transfer him. Answered many questions. Discussed the situation at length with him. Umair Aparicio DO MTDKalina
[2017-03-18] MEDS: Ciprofloxacin 400mg/200ml D5W 400 MG/200 ML BAG IVPB SCH (06:08)
[2017-03-18 07:16] LABS: HEMOGLOBIN 12.4 g/dL (12.0-18.0); MEAN CELL VOLUME 82.8 fL (80.0-94.0); MEAN CORPUSCULAR HEMOGLOBIN 28.6 pg (27.0-31.0); MEAN CORPUSCULAR HGB CONC 34.6 g/dL (33.0-37.0); MEAN PLATELET VOLUME 7.8 fL (7.2-11.7); RBC 4.32 Mil/uL (4.40-5.90); RED CELL DISTRIBUTION WIDTH 15.1 % (11.5-14.5); WHITE BLOOD COUNT 8.5 K/uL (4.8-10.8)
[2017-03-18 08:15] LABS: BLOOD UREA NITROGEN 11 mg/dL (9-20)
[2017-03-18 08:17] LABS: ALB/GLOB RATIO 1.3 (1.0-2.1); ALBUMIN 3.5 g/dL (3.5-5.0); ALT/SGPT 33 U/L (21-72); AST/SGOT 35 U/L (17-59); CALCIUM 8.6 mg/dl (8.6-10.4); GFR AFRICAN-AMERICAN > 60; GFR NON-AFRICAN AMERICAN > 60
[2017-03-18 08:22] VITALS: BP 103/72; PULSE 77; TEMP 97.8; O2SAT 99
[2017-03-18] MEDS: Sacubitril/Valsartan 24-26mg Tab PO SCH (09:06)
--- NOTE | 2017-03-19 02:38 | DS ---
HISTORY OF PRESENT ILLNESS: Dr. Cunningham is trying to arrange for transfer today from [facility] to [facility] for special procedure of embolization of prostate. He is in bed, he slept well. He had some difficulty to urine but he is urinating, it is yellow, he has got some irritation when he urinates, he is on Cipro. The Parra catheter is out by Dr. Cunningham. PHYSICAL EXAMINATION: VITAL SIGNS: He has 97.5 temp, 66 pulse, 105/70 blood pressure, 20 respiratory rate, 92% O2 sat on room air. HEENT: Head is atraumatic and normocephalic. Throat is moist. NECK: Supple. HEART: Regular rate. LUNGS: Clear to auscultation. ABDOMEN: Soft, morbidly obese and nontender. Positive bowel sounds. EXTREMITIES: No edema. LABORATORY DATA: He has 8.5 white count, 12.4 hemoglobin, 35.8 hematocrit with a 184 platelets. INR is 1.1. He has got 134 sodium, potassium is 4, BUN is 10, creatinine 0.8, GFR is greater than 60, sugar is 110, calcium is 8.2, total bilirubin is 0.78, AST is 29, ALT is 30, alkaline phosphatase is 40, and total protein is 6.2. Urine is much clear, it is yellow. MEDICATIONS: He is currently on IV fluids, Aldactone, ciprofloxacin IV, Coreg, Entresto and some codeine for pain. He is being seen by Cardiology and Urology. He is to be transferred to [facility] for special procedure by the urologist over there, hopefully Dr. Cunningham can arrange that today and I will put a discharge in as per Dr. Thakkar. He has gross hematuria, he has atrial fibrillation, he has a LifeVest, he had a cystoscopy that cleared out the clots. Hopefully, we can transfer him to [place] today. Umair Aparicio DO
--- NOTE | 2017-03-20 22:38 | CARD ---
APPROVED REPORT EKG Measurement Heart [id number] <Conclusion> Atrial fibrillation Incomplete right bundle branch block Left anterior fascicular block T wave abnormality, consider lateral ischemia Prolonged QT Abnormal ECG
--- NOTE | 2017-03-20 22:40 | CARD ---
APPROVED REPORT EKG Measurement Heart [id number] <Conclusion> Atrial fibrillation with rapid ventricular response with premature ventricular or aberrantly conducted complexes Incomplete right bundle branch block Left anterior fascicular block ST & T wave abnormality, consider lateral ischemia Abnormal ECG
== END 2017-03-18 11:27 | disposition home or self-care (01) | DRG 663 ==
LOC: C.ER 07:59 → C.6T 10:19
PROVIDERS: ADMIT Family Medicine; ATTEND Family Medicine
PROC: 0W3R8ZZ Control Bleeding in Genitourinary Tract, Via Natural or Artificial Opening Endoscopic (ICD-10-PCS; principal; 2017-03-15 17:00)
DX: R31.0 Gross hematuria (principal); D68.32 Hemorrhagic disorder due to extrinsic circulating anticoagulants; I50.9 Heart failure, unspecified; I42.0 Dilated cardiomyopathy; T45.515A Adverse effect of anticoagulants, initial encounter; I48.91 Unspecified atrial fibrillation; N32.89 Other specified disorders of bladder; Z87.891 Personal history of nicotine dependence

== ENCOUNTER 2017-10-13 10:40 | Inpatient (IN) | payer OTHER ==
[2017-10-13 10:41] VITALS: BMI 38.5
[2017-10-13] MEDS ORDERED: Sodium Chloride 0.9% 1,000 ML IV STA (11:20)
[2017-10-13 11:32] LABS: BASO % 0.3 % (0.0-2.0); EOS # 0.1 K/uL (0.0-0.7); EOS % 1.3 % (0.0-4.0); HEMOGLOBIN 13.9 g/dL (12.0-18.0); LYMPH # 2.3 K/uL (1.0-4.3); LYMPH % 28.5 % (20.0-40.0); MEAN CELL VOLUME 85.3 fL (80.0-94.0); MEAN CORPUSCULAR HEMOGLOBIN 29.3 pg (27.0-31.0); MEAN CORPUSCULAR HGB CONC 34.4 g/dL (33.0-37.0); MEAN PLATELET VOLUME 7.5 fL (7.2-11.7); MONO # 0.4 K/uL (0.0-0.8); MONO % 5.4 % (0.0-10.0); NEUT # 5.2 K/uL (1.8-7.0); NEUT % 64.5 % (50.0-75.0); NRBC % 0.1 % (0.0-2.0); RBC 4.73 Mil/uL (4.40-5.90); RED CELL DISTRIBUTION WIDTH 14.2 % (11.5-14.5); WHITE BLOOD COUNT 8.1 K/uL (4.8-10.8)
[2017-10-13 11:39] LABS: PROTHROMBIN TIME 11.3 SECONDS (9.7-12.2)
[2017-10-13 11:53] LABS: ALB/GLOB RATIO 1.3 (1.0-2.1); ALBUMIN 4.6 g/dL (3.5-5.0); ALT/SGPT 28 U/L (21-72); AST/SGOT 28 U/L (17-59); BLOOD UREA NITROGEN 11 mg/dL (9-20); CALCIUM 9.5 mg/dl (8.6-10.4); GFR NON-AFRICAN AMERICAN > 60
[2017-10-13] MEDS ORDERED: Sodium Chloride 0.9% 1,000 ML ONE (12:15)
--- NOTE | 2017-10-13 12:19 | C.PDOC ---
History Of Present Illness <Gisselle Boswell - Last Filed: 10/13/17 13:09> <Kristen Cotto - Last Filed: 10/13/17 13:32> 57 y/o male presents to ED c/o difficulty with urination and blood clots in his urine for the last 10 days but more prominent today. Pt states he stopped taking his Eliquis (which he has been taking for cardiac condition) 3 days ago due to blood in the urine. Denies pelvic pain, back pain, fever, chills, or any other associated symptoms at this time. (BarberMaura luceroKristen) <Gisselle Boswell - Last Filed: 10/13/17 13:09> History Per: Patient History/Exam Limitations: no limitations Onset/Duration Of Symptoms: Days Current Symptoms Are (Timing): Still Present Associated Symptoms: Urinary Symptoms Alleviating Factors: None Recent travel outside of the [place]: No Additional History Per: Patient <Kristen Cotto - Last Filed: 10/13/17 13:32> Chief Complaint (Nursing): Male Genitourinary Past Medical History Reviewed: Historical Data, Nursing Documentation, Vital Signs - Medical History PMH: Atrial Fibrillation Denies: Chronic Kidney Disease Family History: States: Unknown Family Hx - Social History Hx Tobacco Use: No Hx Alcohol Use: No Hx Substance Use: No - Immunization History Hx Tetanus Toxoid Vaccination: No Hx Influenza Vaccination: No Hx Pneumococcal Vaccination: No <Kristen Cotto - Last Filed: 10/13/17 13:32> Vital Signs: Last Vital Signs Temp 97.7 F 10/13/17 10:53 Pulse 48 L 10/13/17 12:35 Resp 17 10/13/17 12:35 BP 144/61 10/13/17 12:35 Pulse Ox 100 10/13/17 13:24 - Formerly [facility] Procedures CONTROL BLEEDING IN GENITOURINARY TRACT, ENDO (03/15/17) DESTRUCTION OF BLADDER NECK, ENDO (02/12/17) EXCISION OF PROSTATE, VIA OPENING, DIAGN (02/12/17) INSERT INDWELLING CATH (03/10/14) Review Of Systems Except As Marked, All Systems Reviewed And Found Negative. Constitutional: Negative for: Fever, Chills Cardiovascular: Negative for: Chest Pain Respiratory: Negative for: Shortness of Breath Gastrointestinal: Negative for: Nausea, Vomiting, Abdominal Pain Genitourinary: Positive for: Hematuria Musculoskeletal: Negative for: Back Pain <Kristen Cotto - Last Filed: 10/13/17 13:32> Physical Exam - Physical Exam Appears: Non-toxic, No Acute Distress Skin: Normal Color, Warm, Dry Head: Atraumatic, Normacephalic Eye(s): bilateral: Normal Inspection Oral Mucosa: Moist Cardiovascular: Rhythm Regular Respiratory: Normal Breath Sounds, No Rales, No Rhonchi, No Wheezing Gastrointestinal/Abdominal: Soft, No Tenderness Back: No CVA Tenderness Male Genital: Other (grossly bloody urine noted in urine sample) Extremity: Normal ROM Neurological/Psych: Oriented x3, Normal Speech <Kristen Cotto - Last Filed: 10/13/17 13:32> ED Course And Treatment - Laboratory Results Result Diagrams: 10/13/17 11:27 10/13/17 11:27 <Gisselle Boswell - Last Filed: 10/13/17 13:09> - Laboratory Results Result Diagrams: 10/13/17 11:27 10/13/17 11:27 O2 Sat by Pulse Oximetry: 100 (RA) Pulse Ox Interpretation: Normal - Radiology CXR: Interpreted by Me, Viewed By Me CXR Interpretation: Yes: No Acute Disease Progress Note: Continuous Bladder Irrigation started, patient started feeling pressure. Repositioned Hamilton, getting improvement and restarted irrigation. Case was d/w ED attending who spoke with patient's Urologist . Dr Lozano recommended to continue CBI. Case was d/w patient's PMD who accepted patient to his service for observation and CBI. <Kristen Cotto - Last Filed: 10/13/17 13:32> Progress - Data Reviewed Data Reviewed: Lab, EKG, Old records - Continuity of Care Discussed pt. case with business continuity consultant/specialty: Urology <Gisselle Boswell - Last Filed: 10/13/17 13:09> <Kristen Cotto - Last Filed: 10/13/17 13:32> - Re-Evaluation Re-evaluation Note: 10/13/17 13:09 PER RN, PT CO BLADDER DISCOMFORT DURING CBI. BLADDER SCAN +900 CC MIN OUTPUT. HAMILTON READJUSTED NOW DRAINING WO DIFF. PS FEELS BETTER. PERSIST GROSS HEMATURIA , NO CLOTS. D/W DR RAVINDRA BOSWELL EMBOLIZATION PROSTATE. AWARE OF ER FINDINGS, RECOMMENDS CONTINUED IRRIGATION. NO EMERGENT SURGICAL INTERVENTION @ THIS TIME. (ElbertGisselle) Supervising Attending Note - Supervising Attending Note The Documented history was done by the: Physician Veterinary Science Teacher The documented physical exam was done by the: Physician Veterinary Science Teacher The documented procedures were done by the: Physician Veterinary Science Teacher - Attestation: I have personally seen and examined this patient.: Yes I have fully participated in the care of the patient.: Yes I have reviewed all pertinent clinical information, including history, physical exam and plan: Yes <Gisselle Boswell - Last Filed: 10/13/17 13:09> <Kristen Cotto - Last Filed: 10/13/17 13:32> - Notes: Notes:: RECUR GROSS HEMATURIA THIS WEEK, WORSE TODAY. ON ELIQUIS PS SELF DC 3-4 DAYS AGO. INITIAL IMPROVE BUT NOW WORSE. DENIES URINARY RETENTION, OTHER ASSOC SX. ELBERT CARDIOVERSION BY DR DIAZ, PS WAS TOLD "AFIB IS NOW GONE" BUT WAS ADVISED TO STILL CONTINUE ELIQUIS. EXAM ABOVE (ElbertGisselle) Medical Decision Making <Gisselle Boswell - Last Filed: 10/13/17 13:09> <Kristen Cotto - Last Filed: 10/13/17 13:32> Medical Decision Making: Plan: Blood work Urinalysis EKG CXR IV fluids Hamilton catheter (Kristen Cotto) Disposition <Gisselle Boswell - Last Filed: 10/13/17 13:09> - Disposition Disposition Time: 13:24 <Kristen Cotto - Last Filed: 10/13/17 13:32> - Disposition Condition: FAIR Forms: [employer] (Burundian) - Clinical Impression Clinical Impression: Hematuria, Medication induced coagulopathy <Gisselle Boswell - Last Filed: 10/13/17 13:09> - PA / NEW PATIENT ESCORT / Resident Statement MD/DO has reviewed & agrees with the documentation as recorded. - Scribe Statement The provider has reviewed the documentation as recorded by the Scribe <Kristen Cotto - Last Filed: 10/13/17 13:32> - Scribe Statement KP All medical record entries made by the Scribe were at my direction and personally dictated by me. I have reviewed the chart and agree that the record accurately reflects my personal performance of the history, physical exam, medical decision making, and the department course for this patient. I have also personally directed, reviewed, and agree with the discharge instructions and disposition. (Kristen Cotto) Decision To Admit <Gisselle Boswell - Last Filed: 10/13/17 13:09> - Pt Status Changed To: Hospital Disposition Of: Observation - . Bed Request Type: Regular Admitting Physician: Felton Aparicio <Kristen Cotto - Last Filed: 10/13/17 13:32> - . Patient Diagnosis: Hematuria, Medication induced coagulopathy
[2017-10-13 12:37] LABS: URINE BILIRUBIN NEGATIVE (NEGATIVE); URINE BLOOD 3+ (NEGATIVE); URINE CLARITY Turbid (Clear); URINE GLUCOSE (UA) 1+ mg/dL (Normal); URINE LEUKOCYTE ESTERASE NEG Leu/uL (Negative); URINE PROTEIN 3+ mg/dL (NEGATIVE); URINE UROBILINOGEN NORMAL mg/dL (0.2-1.0)
[2017-10-13 12:39] LABS: URINE COLOR RED (YELLOW)
--- NOTE | 2017-10-13 14:04 | RAD ---
Date of service: 10/13/2017 HISTORY: anxiety/hematuria COMPARISON: Comparison made with chest radiograph 03/15/2017 FINDINGS: LUNGS: Minor bibasilar atelectasis. PLEURA: No significant pleural effusion identified, no pneumothorax apparent. CARDIOVASCULAR: Marked cardiomegaly OSSEOUS STRUCTURES: No significant abnormalities. VISUALIZED UPPER ABDOMEN: Normal. OTHER FINDINGS: None. IMPRESSION: Marked cardiomegaly. Minor bibasilar atelectasis
[2017-10-13 16:12] VITALS: RESP 20
[2017-10-13] MEDS: Sacubitril/Valsartan 49-51 Tab PO SCH (18:11)
--- NOTE | 2017-10-14 03:23 | HP ---
Copied To: Umair Aparicio DO Attending MD: Umair Aparicio DO HISTORY OF PRESENT ILLNESS: I saw him in the room 671 at [facility]. He comes in with bloody clots in his urine, very bloody urine. He is a 57-year-old man who started to run on a treadmill about a week ago and after the pounding of running, he developed clots and bloody urine. He was on Eliquis, so we stopped the Eliquis thinking that it would stop bleeding and it is still bleeding even without the Eliquis. He has pain with hematuria. PAST MEDICAL HISTORY: He has a history of atrial fibrillation, chronic kidney disease. PAST SURGICAL HISTORY: He has had cystos before. FAMILY HISTORY: Unknown family history. SOCIAL HISTORY: No smoking. No drinking. No drugs. ALLERGIES: HE HAS ALLERGIES TO PENICILLIN. MEDICATIONS: He takes Cordarone, Entresto, eplerenone, metoprolol and Eliquis which he stopped at home that was 5 mg twice a day. REVIEW OF SYSTEMS: No acute vision or hearing changes. No sore throat. No chest pain or palpitations. No shortness of breath or cough. No abdominal pain, nausea, vomiting, constipation or diarrhea. He is having gross hematuria and blood clots. No back pain. No skin issues that he knows of. PHYSICAL EXAMINATION: VITAL SIGNS: Temperature 97.7, 48 pulse, 17 respiratory rate, 144/61 blood pressure, 100% O2 saturation on room air. GENERAL: He is alert and oriented x3. Calm, understands the situation. HEENT: His head is atraumatic and normocephalic. Throat is moist. SKIN: Warm and dry. Skin is Intact. No apparent rashes. NECK: Supple. Thyroid midline. No palpable appreciable lymphadenopathy. HEART: Regular rate. LUNGS: Decreased breath sounds, but clear to auscultation. No wheezing. No rhonchi. No rales. ABDOMEN: Soft. Nontender. Positive bowel sounds. Morbidly obese. No CVA tenderness. EXTREMITIES: No edema. NEUROLOGIC: Alert and oriented x3. LABORATORY DATA: He has 8.1 white count, 13.9 hemoglobin, 40.4 hematocrit with a 221 platelets, which is quite good considering he is having gross blood for three days. His urine showed 3+ blood, [id number] rbcs. He has 142 sodium, potassium 4, BUN 11, creatinine 0.8, GFR is greater 60, sugar is 109, calcium 9.5, total bilirubin 0.6. AST is 28, ALT 28, alkaline phosphatase 53, total protein 8.1, albumin 4.6, globulin is 3.5, INR is white count 13.9, hemoglobin holding, 40.4 hematocrit with a 221 platelets with gross blood in the urine. He has a marked cardiomegaly and minor bibasilar atelectasis on chest x-ray. ASSESSMENT AND PLAN: He is going to have a consult with Dr. Lozano who is a urologist. He might need a cystoscope if this does not stop. He will be on heart-healthy diet. He will be on continues bladder irrigation CBI, has a bladder scan ordered, urine culture. We will check his labs tomorrow. Hopefully by tomorrow we will clear up. He is on observation and we could possibly discharge him tomorrow if things go well. He has got painless hematuria. Umair Aparicio DO MTDKalina
[2017-10-14 07:57] LABS: HEMOGLOBIN 13.1 g/dL (12.0-18.0); MEAN CELL VOLUME 85.4 fL (80.0-94.0); MEAN CORPUSCULAR HEMOGLOBIN 29.6 pg (27.0-31.0); MEAN CORPUSCULAR HGB CONC 34.7 g/dL (33.0-37.0); MEAN PLATELET VOLUME 7.1 fL (7.2-11.7); RBC 4.41 Mil/uL (4.40-5.90); RED CELL DISTRIBUTION WIDTH 14.3 % (11.5-14.5); WHITE BLOOD COUNT 7.8 K/uL (4.8-10.8)
[2017-10-14 08:47] LABS: ALB/GLOB RATIO 1.4 (1.0-2.1); ALBUMIN 4.3 g/dL (3.5-5.0); ALT/SGPT 30 U/L (21-72); AST/SGOT 30 U/L (17-59); BLOOD UREA NITROGEN 12 mg/dL (9-20); GFR NON-AFRICAN AMERICAN > 60
[2017-10-14] MEDS: Sacubitril/Valsartan 49-51 Tab PO SCH ×2 (11:10→17:45)
[2017-10-14] MEDS: EPLERENONE 25 MG PO SCH (11:11)
[2017-10-14] MEDS: Metoprolol Succinate 100 mg XL Tab PO SCH (11:11)
--- NOTE | 2017-10-14 14:58 | PN ---
Copied To: Umair Aparicio DO Attending MD: Umair Aparicio DO DATE: 10/14/2017 SUBJECTIVE: I saw him resting comfortably in bed. He had problems with the CBI and his Parra catheter being clogged. He had some discomfort. He is still putting a lot of blood and clots, awaiting for Dr. Lozano to come in. He probably needs a cystoscopy, maybe even a TURP if it is a prostate issue. He is on Cordarone, Entresto, IV fluids, and Toprol. PHYSICAL EXAMINATION: VITAL SIGNS: He has a 98.2 temp, 50 pulse, 125/76 blood pressure, 20 respiratory rate, 95% O2 sat on room air. HEENT: Head is atraumatic, normocephalic. GENERAL: He is alert, little bit more comfortable now with repositioning of the catheter and CBI. He is having gross hematuria and clots. HEART: Regular rate. LUNGS: Decreased breath sounds, but clear. ABDOMEN: Soft, obese, nontender. Positive bowel sounds EXTREMITIES: No edema. He understands the situation. LABORATORY DATA: He has white count of 7.8, hemoglobin 13.1, hematocrit 37.7, platelets of 192. He has 141 sodium, potassium 3.9, BUN 12, creatinine 0.8, GFR is greater than 60, sugar is 111, calcium 9. Total bili is 0.8, AST is 30, ALT is 30, alkaline phosphatase 53, total protein is 7.4. ASSESSMENT AND PLAN: He is here with pain with hematuria, uncomfortable bladder. He has continuous bladder irrigation running, waiting for urologist to come in. He probably needs to have a cystoscopy and even possibly a transurethral resection of prostate. As per Urology, I changed him to an inpatient. I was hoping the hematuria would have dissipated by now with 24 hours of continuous bladder irrigation, but it has not. It has actually gotten a little bit worse with some more clots. I changed him to inpatient as per Urology. Continue with continuous bladder irrigation and intravenous fluids. We will check his labs tomorrow. Umair Aparicio DO [facility] # [id number]
--- NOTE | 2017-10-15 06:47 | PN ---
Copied To: Umair Aparicio DO Attending MD: Umair Aparicio DO DATE: 10/15/2017 SUBJECTIVE: I saw him resting comfortably in bed. He has got blood everywhere. A catheter is put back in. He has CBI running. He has got clots everywhere. A rough morning for him. I do know that Dr. Cunningham, urologist, had seen him. PHYSICAL EXAMINATION: VITAL SIGNS: He has 98 temperature, 52 pulse, 112/68 blood pressure, 20 respiratory rate, 96% O2 saturation on room air. At this time, with three days of hematuria and clots, I would love to see a cystoscopy or possibly even a TURP. He has had a TURP four years ago. LABORATORY DATA: His white count is 7.8, hemoglobin is 13.1, hematocrit is 37.7, platelets are 192. Sodium 141, potassium 3.9, BUN 12, creatinine 0.8, GFR greater than 60, sugar is 111, calcium is 9. Total bilirubin is 0.8, AST is 30, ALT is 30, alk phos is 53, total protein is 7.4. ASSESSMENT AND PLAN: He is definitely maintaining his hemoglobin despite all the bleeding. Await for a note from Dr. Cunningham in the chart. I am not sure of the plan, although he needs to be on intravenous fluids and continuous bladder irrigation. He is uncomfortable in bed. I think cystoscopy or possibly a transurethral resection of prostate is needed. We will check his labs tomorrow as per Urology and hoping for a note in the chart. Umair Aparicio DO MTDD
--- NOTE | 2017-10-15 06:59 | CON ---
Copied To: Felton Lozano MD Attending MD: Felton Lozano MD DATE: 10/14/2017 Condition of the patient from the emergency room with hematuria. The patient had a history of atrial fibrillation, being treated by Eliquis. Also had embolization of the prostate for hematuria secondary to the Eliquis and is being treated for atrial fibrillation. At the present time, the patient has been having a cardioversion for the atrial fibrillation. Eliquis was started possibly a week ago, stopped and now is five days into Eliquis effect. The irrigation shows pink tinged urine with small clots. No excessive bleeding. The patient is comfortable. Maintain CBI in drip returned. We will follow for the next three to four days. Hopefully, there will be no effect from the Eliquis and make further decisions at that time. The patient otherwise is comfortable and will be followed closely. Felton Lozano MD
[2017-10-15 07:36] LABS: HEMOGLOBIN 12.6 g/dL (12.0-18.0); MEAN CELL VOLUME 83.5 fL (80.0-94.0); MEAN CORPUSCULAR HEMOGLOBIN 29.8 pg (27.0-31.0); MEAN CORPUSCULAR HGB CONC 35.7 g/dL (33.0-37.0); MEAN PLATELET VOLUME 7.4 fL (7.2-11.7); RBC 4.22 Mil/uL (4.40-5.90); RED CELL DISTRIBUTION WIDTH 14.3 % (11.5-14.5); WHITE BLOOD COUNT 8.4 K/uL (4.8-10.8)
[2017-10-15 08:40] LABS: ALB/GLOB RATIO 1.4 (1.0-2.1); ALBUMIN 4.2 g/dL (3.5-5.0); ALT/SGPT 33 U/L (21-72); AST/SGOT 32 U/L (17-59); BLOOD UREA NITROGEN 12 mg/dL (9-20); GFR NON-AFRICAN AMERICAN > 60
[2017-10-15] MEDS: Sacubitril/Valsartan 49-51 Tab PO SCH ×2 (10:56→22:46)
[2017-10-15] MEDS: Metoprolol Succinate 100 mg XL Tab PO SCH (10:56)
--- NOTE | 2017-10-15 16:09 | CARD ---
APPROVED REPORT Date of service: 10/13/2017 EKG Measurement Heart [id number] <Conclusion> Sinus bradycardia Incomplete right bundle branch block Left anterior fascicular block ST & T wave abnormality, consider anterolateral ischemia Prolonged QT Abnormal ECG
[2017-10-16 07:58] LABS: HEMOGLOBIN 11.9 g/dL (12.0-18.0); MEAN CELL VOLUME 85.1 fL (80.0-94.0); MEAN CORPUSCULAR HGB CONC 35.3 g/dL (33.0-37.0); MEAN PLATELET VOLUME 7.6 fL (7.2-11.7); RBC 3.97 Mil/uL (4.40-5.90); RED CELL DISTRIBUTION WIDTH 14.6 % (11.5-14.5); WHITE BLOOD COUNT 9.9 K/uL (4.8-10.8)
[2017-10-16 08:11] LABS: ALB/GLOB RATIO 1.4 (1.0-2.1); ALBUMIN 4.2 g/dL (3.5-5.0); ALT/SGPT 36 U/L (21-72); AST/SGOT 40 U/L (17-59); BLOOD UREA NITROGEN 13 mg/dL (9-20); CALCIUM 9.2 mg/dl (8.6-10.4); GFR NON-AFRICAN AMERICAN > 60
[2017-10-16 08:32] VITALS: BP 129/80; PULSE 58; TEMP 98.2; O2SAT 97
[2017-10-16] MEDS: Sacubitril/Valsartan 49-51 Tab PO SCH (09:11)
[2017-10-16] MEDS: EPLERENONE 25 MG PO SCH (09:12)
[2017-10-16] MEDS: Metoprolol Succinate 100 mg XL Tab PO SCH (09:12)
--- NOTE | 2017-10-16 10:29 | PN ---
Copied To: Umair Aparicio DO Attending MD: Umair Aparicio DO DATE: 10/16/2017 SUBJECTIVE: The patient resting comfortably in bed. Last night, he had a problem with the Parra catheter. Now, he knows the Parra catheter is in. He is urinating rust-colored urine, almost little bit blood tinged. He is on amiodarone, Entresto, Toprol, as well as the Eliquis. He has last night and he this morning. He is to undergo cystoscopy with Dr. Lozano. I discussed this with Dr. Lozano this morning. He also does not want him on Eliquis anymore. He is also sinus mary. PHYSICAL EXAMINATION: VITAL SIGNS: 98.1 temperature, 74 pulse, 122/80 blood pressure, 20 respiratory rate, 96% O2 sat on room air. HEENT: Head is atraumatic, normocephalic. HEART: Regular rate. LUNGS: Decreased breath sounds, but clear. ABDOMEN: Soft and nontender. Positive bowel sounds. No guarding. No rebound. No CVA tenderness. He is much more comfortable without the Parra catheter. He slept well at night. EXTREMITIES: With no edema. LABORATORY DATA: He has an 8.4 white count, 12.6 hemoglobin, 35.2 hematocrit, 192 platelets. He has a 140 sodium, potassium 3.7, BUN 12, creatinine 0.8. GFR is greater than 60, sugar is 110, calcium is 9. Total bilirubin is 0.8, AST is 32, ALT is 33, alk phos is 58, total protein 7.2. ASSESSMENT AND PLAN: Here for cystoscopy this morning. He is n.p.o. I called in Dr. Leach, his graphic design assistant to see if he still needs to be on Eliquis anymore now that he has sinus rhythm, and maybe this will be the reason why he is bleeding in the bladder or see what the cystoscopy says today. If things go well, he might have a chance being discharged later this afternoon. We will see how it goes. Umair Aparicio DO [facility] # [id number] MTDKalina
--- NOTE | 2017-10-16 11:51 | CP.PCM.CON ---
History of Present Illness - History of Present Illness History of Present Illness: The patient is a57 year old man with dilated non ischemia cardiomyopathy. pt has had multiple Gu procedure for hematuria, including vessel embolization at [place]. pt's LV EF was poor, and pt underwent elective cardioversion at [facility] in early august. He had been on eliquis for a few months before, and for a few months after the cardioversion. he now presents again with hematuria, eliquis has been on hold. pt is also on metoprolol amiodarone and entresto. Pt is in s mary, with mild qt prolongation. No chest pain, dyspnea, or clinical evidence of CHF. CXR is clear. Review of Systems - Review of Systems All systems: reviewed and no additional remarkable complaints except (as above, otherwise negative) Past Patient History - Past Medical History & Family History Past Medical History?: Yes - Past Social History Smoking Status: Former Smoker - CARDIAC Hx Atrial Fibrillation: Yes Hx Hypertension: Yes Other/Comment: Cardioversion - PULMONARY Hx Respiratory Disorders: No - NEUROLOGICAL Hx Neurological Disorder: No - HEENT Hx HEENT Problems: No - RENAL Hx Chronic Kidney Disease: No - ENDOCRINE/METABOLIC Hx Endocrine Disorders: No - HEMATOLOGICAL/ONCOLOGICAL Hx Blood Disorders: No - INTEGUMENTARY Hx Dermatological Problems: No - MUSCULOSKELETAL/RHEUMATOLOGICAL Hx Falls: No - GASTROINTESTINAL Hx Gastrointestinal Disorders: No - GENITOURINARY/GYNECOLOGICAL Hx Genitourinary Disorders: Yes Hx Prostate Problems: Yes Other/Comment: Resected prostate 4 yrs ago (TURP) - PSYCHIATRIC Hx Psychophysiologic Disorder: No Hx Substance Use: (smokes pot 35 years ago) - SURGICAL HISTORY Hx Surgeries: Yes Other/Comment: TURP 4yrs ago - ANESTHESIA Hx Anesthesia: Yes Hx Anesthesia Reactions: No Hx Malignant Hyperthermia: No Meds Allergies/Adverse Reactions: Allergies Allergy/AdvReac Type Severity Reaction Status Date / Time Penicillins Allergy RASH Verified 08/06/17 10:02 - Medications Medications: Current Medications Amiodarone HCl (Cordarone) 200 mg PO DAILY [facility] Last Admin: 10/16/17 09:12 Dose: 200 mg Home Med (Patient's Own Medication) 1 tab PO DAILY [facility] Last Admin: 10/16/17 09:12 Dose: 1 tab Metoprolol Succinate (Toprol Xl) 100 mg PO DAILY [facility] Last Admin: 10/16/17 09:12 Dose: 100 mg Sacubitril/Valsartan (Entresto 49 Mg-51 Mg) 1 tab PO BID PADMINI Last Admin: 10/16/17 09:11 Dose: 1 tab Physical Exam - Constitutional Appears: Well - Head Exam Head Exam: ATRAUMATIC - Eye Exam Eye Exam: EOMI - ENT Exam ENT Exam: Mucous Membranes Moist - Respiratory Exam Respiratory Exam: NORMAL BREATHING PATTERN - Cardiovascular Exam Cardiovascular Exam: REGULAR RHYTHM - GI/Abdominal Exam GI & Abdominal Exam: Normal Bowel Sounds - Exam External exam: NORMAL EXTERNAL EXAM - Extremities Exam Extremities exam: Positive for: normal inspection - Back Exam Back exam: NORMAL INSPECTION - Psychiatric Exam Psychiatric exam: Normal Affect, Normal Mood - Skin Skin Exam: Normal Color Results - Vital Signs Recent Vital Signs: Last Vital Signs Temp 98.2 F 10/16/17 08:30 Pulse 58 L 10/16/17 08:30 Resp 20 10/16/17 08:30 BP 129/80 10/16/17 08:30 Pulse Ox 97 10/16/17 08:30 - Labs Result Diagrams: 10/16/17 07:43 10/16/17 07:43 Labs: Laboratory Results - last 24 hr 10/16/17 10/16/17 07:43 07:43 WBC 9.9 RBC 3.97 L Hgb 11.9 L Hct 33.8 L MCV 85.1 MCH 30.0 MCHC 35.3 RDW 14.6 H Plt Count 176 MPV 7.6 Sodium 142 Potassium 4.2 Chloride 104 Carbon Dioxide 28 Anion Gap 14 BUN 13 Creatinine 0.9 Est GFR ( Amer) > 60 Est GFR (Non-Af Amer) > 60 Random Glucose 116 H Calcium 9.2 Total Bilirubin 0.8 AST 40 ALT 36 Alkaline Phosphatase 59 Total Protein 7.1 Albumin 4.2 Globulin 2.9 Albumin/Globulin Ratio 1.4 - EKG Data EKG Interpreted by: Myself EKG shows normal: Sinus rhythm (mildly prolonged qt) Assessment & Plan - Assessment and Plan (Free Text) Assessment: 1. The pt has had recurrent hematuria, and eliquis on hold for now. Decision to repeat cystoscopy is up to Dr Lozano. 2. The risk of stroke after cardioversion, even in NSR is high, and ACC recommendations are class I for continuing lifelong anticoagulation. Once bleeding risk has deemed to have subsided, anticoagulation must be resumed. 2. Due to the patient;s recurrent bleeding risk and need for anticoagulation, the patient is a potential candidate for the Watchman device, an occluder device that is placed into the left atrial appendage via a transfemoral approach. The patient would require 4-8 weeks of anticoagulation after insertion , but after that, he would be able to safely stop anticoagulation for the rest of his life. The patient is interested in the procedure, but before he would be considered a candidate, he would need to be back on eliquis for at least a month or two, two give assurance that he could handle anticoagulation for the post -implantation period. All of this can be arranged in the future as an outpatient. For now, anticoagulation is on hold pending eval and treatment.
== END 2017-10-16 13:15 | disposition home or self-care (01) | DRG 699 ==
LOC: C.ER 10:40 → C.9E 13:22 → C.6T 14:49 → OBSVTOIN 10-14 11:07
PROVIDERS: ADMIT Family Medicine; ATTEND Family Medicine
PROC: 0T9B70Z Drainage of Bladder with Drainage Device, Via Natural or Artificial Opening (ICD-10-PCS; principal; 2017-10-14)
DX: N02.9 Recurrent and persistent hematuria with unspecified morphologic changes (principal); D68.32 Hemorrhagic disorder due to extrinsic circulating anticoagulants; I42.0 Dilated cardiomyopathy; T45.515A Adverse effect of anticoagulants, initial encounter; I48.91 Unspecified atrial fibrillation; I45.81 Long QT syndrome; I12.9 Hypertensive chronic kidney disease with stage 1 through stage 4 chronic kidney disease, or unspecified chronic kidney disease; N18.9 Chronic kidney disease, unspecified; Z87.891 Personal history of nicotine dependence; Z88.0 Allergy status to penicillin; Z90.79 Acquired absence of other genital organ(s)

== ENCOUNTER 2018-05-11 09:54 | Emergency (ER) | payer OTHER ==
[2018-05-11 09:56] VITALS: BMI 40.8
[2018-05-11 10:00] VITALS: BP 158/91; PULSE 57; RESP 18; TEMP 99.4; O2SAT 99
[2018-05-11 11:01] LABS: SQUAMOUS EPITHIAL < 1 /hpf (0-5); URINE BILIRUBIN NEGATIVE (NEGATIVE); URINE BLOOD 3+ (NEGATIVE); URINE CLARITY Hazy (Clear); URINE COLOR Yellow (YELLOW); URINE GLUCOSE (UA) NORMAL (Normal); URINE LEUKOCYTE ESTERASE TRACE Leu/uL (Negative); URINE PROTEIN 1+ mg/dL (NEGATIVE)
--- NOTE | 2018-05-11 11:29 | C.PDOC ---
History Of Present Illness 58 year male with PMHx of enlarged prostate and elevated PSA presents to the ED complaining of urinary retention. Reports last night was the last time he was able to urinate. States he had episodes of straining and dribbling this morning. Notes history of one episode of urinary retention in the past resolved by TURP surgery performed by Dr. Lozano. Denies currently taking Flomax. Denies dysuria, hematuria, fever, abdominal or flank pain, n/v/d, or any other associated symptoms. Time Seen by Provider: 05/11/18 10:02 Chief Complaint (Nursing): Male Genitourinary History Per: Patient History/Exam Limitations: no limitations Onset/Duration Of Symptoms: Hrs Current Symptoms Are (Timing): Still Present Associated Symptoms: Urinary Symptoms (urinary retention ). denies: Fever, Chills, Nausea, Vomiting, Diarrhea Past Medical History Reviewed: Historical Data, Nursing Documentation, Vital Signs Vital Signs: Last Vital Signs Temp 99.4 F 05/11/18 09:56 Pulse 57 L 05/11/18 09:56 Resp 18 05/11/18 09:56 BP 158/91 H 05/11/18 09:56 Pulse Ox 99 05/11/18 09:56 - Medical History PMH: Atrial Fibrillation, HTN Denies: Chronic Kidney Disease Other Surgeries: Hx of surgeries - [facility] Procedures CONTROL BLEEDING IN GENITOURINARY TRACT, ENDO (03/15/17) DESTRUCTION OF BLADDER NECK, ENDO (02/12/17) DRAINAGE OF BLADDER WITH DRAINAGE DEVICE, VIA OPENING (10/14/17) EXCISION OF PROSTATE, VIA OPENING, DIAGN (02/12/17) INSERT INDWELLING CATH (03/10/14) Family History: States: No Known Family Hx - Social History Hx Tobacco Use: No Hx Alcohol Use: No (socially, last drink was 2 months ago) Hx Substance Use: (smokes pot 35 years ago) - Immunization History Hx Tetanus Toxoid Vaccination: No Hx Influenza Vaccination: No Hx Pneumococcal Vaccination: No Review Of Systems Constitutional: Negative for: Fever, Chills Gastrointestinal: Negative for: Nausea, Vomiting, Abdominal Pain, Diarrhea Genitourinary: Positive for: Other (urinary retention ). Negative for: Dysuria, Hematuria Physical Exam - Physical Exam Appears: Non-toxic, No Acute Distress, Other (uncomfortable ) Skin: Warm, Dry, No Rash Head: Normacephalic Eye(s): bilateral: Normal Inspection Oral Mucosa: Moist Neck: Supple Chest: Symmetrical Cardiovascular: Rhythm Regular Respiratory: No Rales, No Rhonchi, No Wheezing Gastrointestinal/Abdominal: Soft, Tenderness (suprapubic ), Distention (supr apubic ) Neurological/Psych: Oriented x3, Normal Speech Gait: Steady ED Course And Treatment - Laboratory Results Lab Results: Urine Color Yellow (YELLOW) 05/11/18 10:44 Urine Clarity Hazy (Clear) 05/11/18 10:44 Urine pH 7.0 (5.0-8.0) 05/11/18 10:44 Ur Specific [place] 1.024 (1.003-1.030) 05/11/18 10:44 Urine Protein 1+ mg/dL (NEGATIVE) H 05/11/18 10:44 Urine Glucose (UA) Normal mg/dL (Normal) 05/11/18 10:44 Urine Ketones Negative mg/dL (NEGATIVE) 05/11/18 10:44 Urine Blood 3+ (NEGATIVE) H 05/11/18 10:44 Urine Nitrate Negative (NEGATIVE) 05/11/18 10:44 Urine Bilirubin Negative (NEGATIVE) 05/11/18 10:44 Urine Urobilinogen 4.0 mg/dL (0.2-1.0) 05/11/18 10:44 Ur Leukocyte Esterase Trace [place]/uL (Negative) 05/11/18 10:44 Urine WBC (Auto) 13 /hpf (0-5) H 05/11/18 10:44 Urine RBC (Auto) 800 /hpf (0-3) H 05/11/18 10:44 Ur Squamous Epith Cells < 1 /hpf (0-5) 05/11/18 10:44 O2 Sat by Pulse Oximetry: 99 (RA) Pulse Ox Interpretation: Normal Progress Note: Patient treated with Flomax. Urine cultures and urine collected and sent to the lab for analysis. UA shows no UTI. Bladder scan showed over 800mL. Parra Catheter placed and clear urine drained. Patient discharged with leg bag. Reassessment Condition: Improved Disposition Counseled Patient/Family Regarding: Diagnosis, Need For Followup, Rx Given - Disposition Referrals: Umair Aparicio DO [Staff Provider] - Felton Lozano MD [Staff Provider] - Disposition: HOME/ ROUTINE Disposition Time: 11:30 Condition: STABLE Additional Instructions: FOLLOW UP WITH YOUR UROLOGIST WITHIN 1 WEEK USE FLOMAX DAILY RETURN TO ER IF YOU HAVE ANY WORSENING OR CONCERNING SYMPTOMS Prescriptions: Tamsulosin [Flomax] 0.4 mg PO DAILY #5 cap Instructions: Urinary Retention (DC) Forms: [employer] ([place]se) Print Language: POLISH - Clinical Impression Clinical Impression: Acute urinary retention - Scribe Statement The provider has reviewed the documentation as recorded by the Scribe Lenore Wilkins All medical record entries made by the Ashlie were at my direction and personally dictated by me. I have reviewed the chart and agree that the record accurately reflects my personal performance of the history, physical exam, medical decision making, and the department course for this patient. I have also personally directed, reviewed, and agree with the discharge instructions and disposition.
== END 2018-05-11 12:00 | disposition home or self-care (01) ==
LOC: C.ER 09:54
DX: R33.9 Retention of urine, unspecified (principal)

== ENCOUNTER 2018-05-11 15:54 | Inpatient (IN) | payer OTHER ==
[2018-05-11 15:55] VITALS: BMI 40.8
[2018-05-11 16:56] LABS: BASO % 0.3 % (0.0-2.0); EOS % 0.1 % (0.0-4.0); HEMOGLOBIN 13.7 g/dL (12.0-18.0); LYMPH # 1.5 K/uL (1.0-4.3); LYMPH % 14.8 % (20.0-40.0); MEAN CELL VOLUME 84.8 fL (80.0-94.0); MEAN CORPUSCULAR HEMOGLOBIN 29.2 pg (27.0-31.0); MEAN CORPUSCULAR HGB CONC 34.5 g/dL (33.0-37.0); MEAN PLATELET VOLUME 7.3 fL (7.2-11.7); MONO # 0.5 K/uL (0.0-0.8); MONO % 5.2 % (0.0-10.0); NEUT # 8.1 K/uL (1.8-7.0); NEUT % 79.6 % (50.0-75.0); RBC 4.67 Mil/uL (4.40-5.90); RED CELL DISTRIBUTION WIDTH 14.2 % (11.5-14.5); WHITE BLOOD COUNT 10.1 K/uL (4.8-10.8)
[2018-05-11 17:06] LABS: INR 1.1; PROTHROMBIN TIME 12.1 SECONDS (9.7-12.2)
--- NOTE | 2018-05-11 17:07 | C.PDOC ---
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 Denies any pain, shortness of breath, chest pain, nausea, vomiting, diarrhea, fe mitra, chills, or any other symptoms. 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) Current Symptoms Are (Timing): Still Present Additional History Per: Prior Records Past Medical History Reviewed: Historical Data, Nursing Documentation, Vital Signs Vital Signs: Last Vital Signs Temp 97.8 F 05/11/18 16:13 Pulse 64 05/11/18 16:13 Resp 24 05/11/18 16:13 BP 120/84 05/11/18 16:13 Pulse Ox 97 05/11/18 16:13 - Medical History PMH: Atrial Fibrillation, HTN Denies: Chronic Kidney Disease Other Surgeries: hx of surgeries - [facility] Procedures CONTROL BLEEDING IN GENITOURINARY TRACT, ENDO (03/15/17) DESTRUCTION OF BLADDER NECK, ENDO (02/12/17) DRAINAGE OF BLADDER WITH DRAINAGE DEVICE, VIA OPENING (10/14/17) EXCISION OF PROSTATE, VIA OPENING, DIAGN (02/12/17) INSERT INDWELLING CATH (03/10/14) Family History: States: No Known Family Hx - Social History Hx Tobacco Use: No Hx Alcohol Use: No (socially, last drink was 2 months ago) Hx Substance Use: (smokes pot 35 years ago) - Immunization History Hx Tetanus Toxoid Vaccination: No Hx Influenza Vaccination: No Hx Pneumococcal Vaccination: No Review Of Systems Constitutional: Negative for: Fever, Chills Cardiovascular: Negative for: Chest Pain Respiratory: Negative for: Shortness of Breath Gastrointestinal: Negative for: Nausea, Vomiting, Abdominal Pain, Diarrhea Genitourinary: Positive for: Hematuria. Negative for: Dysuria Physical Exam - Physical Exam Appears: Non-toxic, No Acute Distress, Other (anxious ) Skin: Warm, Dry, No Rash Head: Normacephalic Eye(s): bilateral: Normal Inspection Oral Mucosa: Moist Neck: Supple Chest: Symmetrical Cardiovascular: Rhythm Regular Respiratory: No Rales, No Rhonchi, No Wheezing Gastrointestinal/Abdominal: Soft, No Tenderness, No Guarding, No Rebound, Other (obese ) Male Genital: Other (Parra catheter present, gross hematuria noted to Parra and bag ) Neurological/Psych: Oriented x3, Normal Speech Gait: Steady ED Course And Treatment - Laboratory Results Result Diagrams: 05/11/18 16:53 05/11/18 16:53 ECG: Interpreted By Me, Viewed By Me (sinus bradycardia 49 bpm, left axis deviation, RBBB, T wave inversions II, III, aVF, V3-V6, no acute ST changes ) O2 Sat by Pulse Oximetry: 97 (RA) Pulse Ox Interpretation: Normal Progress Note: Blood collected and sent to the lab for analysis. Patient placed on CBI. Disposition - Disposition - Scribe Statement The provider has reviewed the documentation as recorded by the Scribe Lenore Wilkins All medical record entries made by the Scribe were at my direction and personally dictated by me. I have reviewed the chart and agree that the record accurately reflects my personal performance of the history, physical exam, medical decision making, and the department course for this patient. I have also personally directed, reviewed, and agree with the discharge instructions and disposition.
[2018-05-11 17:11] LABS: ALB/GLOB RATIO 1.6 (1.0-2.1); ALBUMIN 4.5 g/dL (3.5-5.0); ALT/SGPT 24 U/L (21-72); AST/SGOT 26 U/L (17-59); BLOOD UREA NITROGEN 11 mg/dL (9-20); CALCIUM 9.7 mg/dl (8.6-10.4); GFR NON-AFRICAN AMERICAN > 60
[2018-05-12 07:24] LABS: BASO % 0.4 % (0.0-2.0); EOS % 0.4 % (0.0-4.0); HEMOGLOBIN 13.1 g/dL (12.0-18.0); LYMPH # 1.6 K/uL (1.0-4.3); LYMPH % 21.6 % (20.0-40.0); MEAN CELL VOLUME 86.1 fL (80.0-94.0); MEAN CORPUSCULAR HEMOGLOBIN 29.3 pg (27.0-31.0); MEAN PLATELET VOLUME 7.6 fL (7.2-11.7); MONO # 0.6 K/uL (0.0-0.8); MONO % 7.6 % (0.0-10.0); NEUT # 5.3 K/uL (1.8-7.0); NRBC % 0.1 % (0.0-2.0); RBC 4.47 Mil/uL (4.40-5.90); RED CELL DISTRIBUTION WIDTH 14.4 % (11.5-14.5); WHITE BLOOD COUNT 7.6 K/uL (4.8-10.8)
[2018-05-12 07:28] LABS: BLOOD UREA NITROGEN 13 mg/dL (9-20); CALCIUM 9.3 mg/dl (8.6-10.4); GFR NON-AFRICAN AMERICAN > 60
--- NOTE | 2018-05-12 08:58 | HP ---
HISTORY OF PRESENT ILLNESS: He is a 58-year-old white male who ends up coming to the emergency room twice, today is the second time. He had a lot of hematuria, so Parra was put in for urinary retention. No shortness breath, no chest pain. No nausea or vomiting. Very uncomfortable. Now, he is having lesser hematuria. Emergency room doctor spoke to the urologist, Dr. Cunningham and he wants to put him in the hospital for continuous bladder irrigation. PAST MEDICAL HISTORY: Atrial fibrillation and hypertension. He has had controlled bleeding in terms of urinary tract. He had destruction of the bladder neck, drainage of the bladder, excision of the prostate, indwelling Parra in the past. FAMILY HISTORY: None known. SOCIAL HISTORY: No smoking. Socially drinks, last drink was two months ago. He smokes marijuana. REVIEW OF SYSTEMS: No acute vision or hearing changes. No sore throat. No neck pain. No fever, no chills. No chest pain, shortness of breath, or palpitations. No cough. No nausea, vomiting, constipation, or diarrhea. No back pain. He is having, first was urinary retention, benefit of Parra catheter and now he is having hematuria, it won't stop. No extremity issues. No skin issues that he knows of. PHYSICAL EXAMINATION: VITAL SIGNS: He has 98.2 temp, 60 pulse, 122/66 blood pressure, 20 respiratory rate, 95%, also 97% O2 saturation on room air. GENERAL: He is alert, in bed. He also tells me he has got elevated prostate, PSA 15. He is not sure what the urologist wants to do as far as either a TURP or prostatectomy. HEENT: Extraocular muscles are intact. Pupils equally reactive to light. Throat is moist. Head is atraumatic, normocephalic. NECK: Supple. Thyroid midline. No palpable appreciable lymphadenopathy. HEART: Regular rate. LUNGS: Decreased breath sounds, but clear to auscultation. No wheezes. No rhonchi. No rales. ABDOMEN: Soft, obese, nontender. Positive bowel sounds. No guarding. No rebound. No CVA tenderness. There is CBI and the Parra has hematuria. NEUROLOGIC: Alert and oriented x3, normal speech. Cranial nerves II-XII grossly intact. LABORATORY DATA: He had blood test done. He has sodium 138, potassium 3.9, BUN 11, creatinine 1, GFR is greater than 60, sugar is 114, calcium is 9.7. Total bili is 0.5, AST is 26, ALT is 24, alk phos 71, total protein 7.3, albumin is 4.5. INR is 1.1. White count is 10.1, hemoglobin 13.7, hematocrit 39.6, platelets of 230. IMPRESSION AND PLAN: He is having a consult with Dr. Lozano, the urologist. He has continuous bladder irrigating going, will have laboratories in the morning. He has urine observation. I know the patient, Navid Trevizo with hematuria on second visit to the emergency room, first time with urinary retention and for hematuria, Parra was placed. He has elevated prostate specific antigen. Umair Aparicio DO
--- NOTE | 2018-05-12 10:12 | PN ---
DATE: 05/12/2018 SUBJECTIVE: He came in yesterday with hematuria twice to the emergency room. He had urinary retention. Then, I put a Parra catheter in. Then, the hematuria began. He came back to the emergency room. The urologist asked to keep him in the hospital. Presently, he is on continuous bladder irrigation. Last night when I saw him, it was very red, is clear. There was some blood clot flushed out by the nurse, which is great. He is on Cordarone, Entresto, Flomax, Toprol. He is going to bring in his eplerenone. He is comfortable. No chest pain. No shortness of breath. No abdominal pain. No problems with the catheter at this time. He has an appetite. He would like to go home. PHYSICAL EXAMINATION: VITAL SIGNS: He has 98.2 temp , 55 pulse, 116/71 blood pressure, 20 respiratory rate, 96% O2 sat on room air. HEENT: Head is atraumatic and normocephalic. HEART: Regular rate. LUNGS: Decreased breath sounds with clear to auscultation. No wheezing, no rhonchi, no rales. ABDOMEN: Soft, morbidly obese, nontender. Positive bowel sounds. No guarding. No rebound. No CVA tenderness. EXTREMITIES: No edema. GENITOURINARY: Parra catheter is in place with CBI and is clear. Fluid coming out of his bladder looks like water, which is great. LABORATORY DATA: Last labs with 10.1 white count, 15.7 hemoglobin, 39.6 hematocrit, with 230 platelets. He has 138 sodium, potassium 3.9, BUN 11, creatinine 1, GFR is greater than 60, sugar is 140, calcium 9.7. Total bili is 0.5, AST is 26, ALT is 24, alk phos is 71, total protein is 7.3. ASSESSMENT AND PLAN: Await this morning's laboratories. Also await urology evaluation. Further plans, the nurse will call me later for discharge or procedure, and we will continue with the course of treatment and care to emergency room visit yesterday with hematuria, and he is improving. He also has an elevated prostate-specific antigen. Umair Aparicio DO [facility] # [id number] MTDKalina
[2018-05-12] MEDS: Sacubitril/Valsartan 49-51 Tab PO SCH ×2 (11:53→18:47)
[2018-05-12] MEDS: Metoprolol Succinate 100 mg XL Tab PO SCH (11:54)
[2018-05-12] MEDS ORDERED: Ciprofloxacin 400mg/200ml D5W 400 MG/200 ML BAG IVPB ONE (13:41)
[2018-05-13 07:15] LABS: HEMOGLOBIN 13.3 g/dL (12.0-18.0); MEAN CELL VOLUME 86.7 fL (80.0-94.0); MEAN CORPUSCULAR HEMOGLOBIN 29.2 pg (27.0-31.0); MEAN CORPUSCULAR HGB CONC 33.6 g/dL (33.0-37.0); MEAN PLATELET VOLUME 7.7 fL (7.2-11.7); RBC 4.56 Mil/uL (4.40-5.90); RED CELL DISTRIBUTION WIDTH 14.1 % (11.5-14.5); WHITE BLOOD COUNT 7.3 K/uL (4.8-10.8)
[2018-05-13 07:50] LABS: ALB/GLOB RATIO 1.5 (1.0-2.1); ALBUMIN 4.3 g/dL (3.5-5.0); ALT/SGPT 15 U/L (21-72); AST/SGOT 32 U/L (17-59); BLOOD UREA NITROGEN 16 mg/dL (9-20); CALCIUM 9.2 mg/dl (8.6-10.4); GFR NON-AFRICAN AMERICAN > 60
[2018-05-13] MEDS: Metoprolol Succinate 100 mg XL Tab PO SCH (09:28)
[2018-05-13] MEDS: Sacubitril/Valsartan 49-51 Tab PO SCH ×2 (09:29→17:08)
[2018-05-13] MEDS ORDERED: Ciprofloxacin 400mg/200ml D5W 400 MG/200 ML BAG IVPB ONE (10:21)
[2018-05-13] MEDS ORDERED: Lidocaine 2% Jelly (Uro-Jet) ONE (10:21)
[2018-05-13] MEDS ORDERED: Midazolam 2 MG/2 ML VIAL ONE (10:28)
[2018-05-13] MEDS ORDERED: Propofol 10 mg/ml Inj (20 ML) ONE (10:28)
[2018-05-13] MEDS ORDERED: Etomidate 20 mg/10ml Inj IV ONE (11:22)
--- NOTE | 2018-05-13 20:47 | CARD ---
APPROVED REPORT Date of service: 05/11/2018 EKG Measurement Heart [id number] <Conclusion> Sinus bradycardia Incomplete right bundle branch block Left anterior fascicular block T wave abnormality, consider inferior ischemia T wave abnormality, consider anterolateral ischemia Abnormal ECG
--- NOTE | 2018-05-14 06:47 | PN ---
DATE: 05/13/2018 SUBJECTIVE: I am not sure what to do. The patient has been here since 05/11/2018, today is 05/13/2018. I have no notes from Urology. There are no stable plan. I know he is on CBI, number is [id number]. He is resting comfortably in bed. I think the patient needs cystoscopy, to be done. CBI has finally cleared may be even a TURP, but there is no plan from the chart. No notes from the chart. No communication with the urologist. PHYSICAL EXAMINATION: GENERAL: 98.1 temperature, 50 pulse, 115/67 blood pressure, 20 respiratory rate, 94% saturation on room air. HEENT: Head is atraumatic and normocephalic. HEART: Regular rate. LUNGS: Decreased breath sounds, but clear. ABDOMEN: Soft. Obese. EXTREMITIES: No edema. LABORATORY DATA: 7.6 white count, 13.1 hemoglobin, 38.5 hematocrit, and 280 platelets. 138 sodium, potassium 3.9, BUN 13, creatinine 0.9, GFR is greater than 60, sugar is 104, calcium 9.3. ASSESSMENT AND PLAN: I will keep him on observation right now because I do not have a plan. There is an n.p.o., I will see there will be a procedure today and hopefully we can discharge him later on this afternoon, keep on two days of observation, is here for hematuria, urinary retention, I guess positive for cystoscopy today. I would like to discharge him later today. Umair Aparicio DO MTD[facility]ina
[2018-05-14 07:01] LABS: HEMOGLOBIN 13.5 g/dL (12.0-18.0); MEAN CELL VOLUME 86.5 fL (80.0-94.0); MEAN CORPUSCULAR HGB CONC 33.5 g/dL (33.0-37.0); MEAN PLATELET VOLUME 7.7 fL (7.2-11.7); RBC 4.66 Mil/uL (4.40-5.90); RED CELL DISTRIBUTION WIDTH 14.2 % (11.5-14.5); WHITE BLOOD COUNT 13.8 K/uL (4.8-10.8)
--- NOTE | 2018-05-14 07:14 | PN ---
DATE: 05/14/2018 SUBJECTIVE: He had a procedure with Dr. Cunningham yesterday, a cystoscopy, I am not sure if there was a TURP involved. He has a CBI running. There was blood in the Parra catheter. He is little more comfortable today. PHYSICAL EXAMINATION: VITAL SIGNS: He has a 98.2 temp, 49 pulse, 109/65 blood pressure, 20 respiratory rate, 96% O2 sat on room air. HEENT: Head is atraumatic, normocephalic. HEART: Regular rate. LUNGS: Decreased breath sounds, but clear. ABDOMEN: Soft, obese, and nontender. Positive bowel sounds. EXTREMITIES: No edema. GENITOURINARY: He has a Parra catheter in place with CBI and has red blood. LABORATORY DATA: He has a 138 sodium, potassium 3.9, BUN 16, creatinine 1.1, GFR is greater than 60, sugar is 96, calcium 9.2, total bilirubin 0.8. AST is 32, ALT 59, alk phos 72, total protein 7.1, INR is 1.1. He has 7.3 white count, 13.3 hemoglobin, 39.6 hematocrit, and 202 platelets. ASSESSMENT AND PLAN: I am not sure what to do. No notes from Urology as a surgical note with no direction. Continue with bladder irrigation as per the Urology. When he is allowed to be discharged soon, the nurse will let me know and we will continue treatment and care as of right now and as per Urology. The patient with urinary retention and hematuria with a history of an elevated PSA. Umair Aparicio DO
[2018-05-14 07:39] LABS: ALB/GLOB RATIO 1.5 (1.0-2.1); ALBUMIN 4.6 g/dL (3.5-5.0); ALT/SGPT 22 U/L (21-72); AST/SGOT 32 U/L (17-59); BLOOD UREA NITROGEN 15 mg/dL (9-20); CALCIUM 9.6 mg/dl (8.6-10.4); GFR NON-AFRICAN AMERICAN > 60
[2018-05-14] MEDS ORDERED: Pneumococcal 23-Valent Vaccine IM ONE (10:00)
[2018-05-14] MEDS ORDERED: Influenza Vaccine 60 mcg/0.5 mL SYR (4YR UP) IM ONE (10:00)
[2018-05-14] MEDS: Metoprolol Succinate 100 mg XL Tab PO SCH (10:21)
[2018-05-14] MEDS: Sacubitril/Valsartan 49-51 Tab PO SCH ×2 (10:21→17:31)
--- NOTE | 2018-05-14 22:45 | OP ---
PROCEDURE DATE: 05/13/2018 INDICATION: The patient was admitted to [facility] with hematuria. A #18 two-way Parra was inserted into the bladder with return. There were some clots evident which were irrigated out. The patient had a previous cystoscopy in 2018. The patient was found to have atrial fibrillation and bleeding after blood thinners were given. Secondarily, the patient had embolization of the prostate and was doing well for one year and then repeated hematuria occurred on 05/12/2018. DIAGNOSIS: Hematuria. DESCRIPTION OF PROCEDURE: The patient was brought to the OR on 05/13/2018. Cystostomy was then done. There was severe inflammation and at the ends of the bladder neck. Bladder ____ through the bladder. There was some oozing blood at the bladder neck, distal to the neck. In the urethra, there appeared to be a fair amount of bleeding. The cystoscope was placed. This was loaded, and using a cautery, cauterization of the ureter at this point was done. The three-way Parra was then inserted with #20 with instant return. The patient tolerated the procedure well. Felton Lozano MD
[2018-05-15 06:23] LABS: HEMOGLOBIN 12.9 g/dL (12.0-18.0); MEAN CELL VOLUME 85.9 fL (80.0-94.0); MEAN CORPUSCULAR HEMOGLOBIN 29.2 pg (27.0-31.0); MEAN PLATELET VOLUME 7.4 fL (7.2-11.7); RBC 4.44 Mil/uL (4.40-5.90); RED CELL DISTRIBUTION WIDTH 14.1 % (11.5-14.5); WHITE BLOOD COUNT 8.9 K/uL (4.8-10.8)
[2018-05-15 06:39] LABS: ALB/GLOB RATIO 1.5 (1.0-2.1); ALT/SGPT 21 U/L (21-72); AST/SGOT 32 U/L (17-59); BLOOD UREA NITROGEN 16 mg/dL (9-20); CALCIUM 8.7 mg/dl (8.6-10.4); GFR NON-AFRICAN AMERICAN > 60
[2018-05-15] MEDS: Metoprolol Succinate 100 mg XL Tab PO SCH (09:28)
--- NOTE | 2018-05-15 12:00 | PN ---
DATE: 05/15/2018 SUBJECTIVE: I saw him in his room with CBI and the Parra catheter is out. He is urinating well, but the urine is completely bloody, worse than it was when he came in, it is thick and it is gross blood. He has been doing that all night, status post cystoscopy, possible TURP. He is on Cordarone, Entresto, Flomax and Toprol and is also taking eplerenone. He is not in any pain. He is worried about urinating blood. PHYSICAL EXAMINATION: VITAL SIGNS: He has a 98.2 temp, 56 pulse, 135/82 blood pressure, 20 respiratory rate, 98% O2 sat on room air. HEENT: Head is atraumatic, normocephalic. HEART: Regular rate. LUNGS: Decreased breath sounds, but clear to auscultation. ABDOMEN: Soft, obese, nontender. Positive bowel sounds. No guarding. No rebound. No CVA tenderness. EXTREMITIES: No edema. LABORATORY DATA: He has 8.9 white count, 12.9 hemoglobin, it was as high as 13.7, yesterday the hemoglobin was 13.5, so hemoglobin yesterday, hematocrit 38.1, platelets of 206. He has a 134 sodium, potassium 4, BUN is 16, creatinine is 1, GFR is greater than 60, sugar is 96, calcium is 8.7, total bilirubin is 0.68. AST is 32, ALT is 41, alk phos 52, total protein 6.7. I was talking when the CBI was stopped and the cystoscopy was completed. He will not be urinating otherwise, but now it is worse, it was color the other day, now it is gross blood. I asked the nurse to call back Dr. Lozano, the urologist, if he will need the CBI put back in or another look at the cystoscopy. We will check his labs tomorrow. We will keep an eye on his blood. We will see what Urology has to say about Mr. Trevizo. Currently, he is having hematuria, worse than when he came in, it is gross blood, hopefully the flow would calm down, but he might need a CBI again. Umair Aparicio DO [facility]
[2018-05-15] MEDS: Sacubitril/Valsartan 49-51 Tab PO SCH (17:26)
[2018-05-16 07:17] LABS: HEMOGLOBIN 12.7 g/dL (12.0-18.0); MEAN CORPUSCULAR HEMOGLOBIN 29.6 pg (27.0-31.0); MEAN CORPUSCULAR HGB CONC 34.4 g/dL (33.0-37.0); MEAN PLATELET VOLUME 7.6 fL (7.2-11.7); RBC 4.29 Mil/uL (4.40-5.90); RED CELL DISTRIBUTION WIDTH 13.8 % (11.5-14.5); WHITE BLOOD COUNT 7.9 K/uL (4.8-10.8)
[2018-05-16 07:42] LABS: ALB/GLOB RATIO 1.5 (1.0-2.1); ALBUMIN 4.2 g/dL (3.5-5.0); ALT/SGPT 23 U/L (21-72); AST/SGOT 32 U/L (17-59); BLOOD UREA NITROGEN 13 mg/dL (9-20); CALCIUM 9.2 mg/dl (8.6-10.4); GFR NON-AFRICAN AMERICAN > 60
--- NOTE | 2018-05-16 08:01 | PN ---
DATE: 05/16/2018 SUBJECTIVE: He is still urinating blood. He is going to go for cystoscopy today, #2, I believe. The CBI is off. He is uncomfortable. He is on Cordarone, Entresto, Flomax, eplerenone, and Toprol. PHYSICAL EXAMINATION: VITAL SIGNS: He has a 97.9 temp, 49 pulse, 113/71 blood pressure, 20 respiratory rate, 90% O2 sat on room air. HEENT: Head is atraumatic, normocephalic. HEART: Regular rate. LUNGS: Decreased breath sounds, but clear. ABDOMEN: Soft, obese, nontender. Positive bowel sounds EXTREMITIES: No edema. NEUROLOGIC: , uncomfortable. LABORATORY DATA: He has 8.9 white count, 12.9 hemoglobin, 38.1 hematocrit with 206 platelets. He has a 134 sodium, potassium 4, BUN is 16, creatinine 1, GFR is greater than 60, sugar is 96, calcium is 8.7, total bilirubin is 0.6, AST is 32, ALT is 21. ASSESSMENT AND PLAN: We will see what Dr. Lozano states or see what he wants to do today. We will check his labs tomorrow and we will continue with aggressive treatment and care. Hopefully, the hematuria will slow down and he will be followed on the outpatient. We are not there yet. From his history, he is not anemic. I will continue with aggressive treatment and care. Umair Aparicio DO MTD[facility]
[2018-05-16] MEDS: Metoprolol Succinate 100 mg XL Tab PO SCH ×2 (09:36→09:48)
[2018-05-16] MEDS: Sacubitril/Valsartan 49-51 Tab PO SCH ×3 (09:38→17:29)
[2018-05-16] MEDS ORDERED: Midazolam 2 MG/2 ML VIAL ONE (11:38)
[2018-05-16] MEDS ORDERED: Propofol 10 mg/ml Inj (20 ML) ONE (11:38)
[2018-05-16] MEDS: Ciprofloxacin 400mg/200ml D5W 400 MG/200 ML BAG IVPB ONE ×3 (11:50→12:01)
[2018-05-16] MEDS ORDERED: ePHEDrine 50 mg/ml Inj ONE (12:10)
[2018-05-16] MEDS ORDERED: Phenylephrine 10 mg/ml Inj ONE (12:10)
[2018-05-16] MEDS ORDERED: HYDROmorphone 0.5 mg/0.5 ml ISec IVP PRN (12:41)
[2018-05-16 16:34] VITALS: RESP 20
--- NOTE | 2018-05-16 17:02 | RAD ---
Date of service: 05/16/2018 PROCEDURE: Intraoperative fluoroscopy HISTORY: HEMATURIA COMPARISON: Not available TECHNIQUE: Intraoperative fluoroscopy was provided for cystography. Total time of fluoroscopy was 7.4 sec. Cumulative dose was 0.69941 mGy meter squared. FINDINGS: One fluoroscopic spot film is submitted. IMPRESSION: Fluoroscopy provided.
[2018-05-17 07:41] LABS: ALB/GLOB RATIO 1.4 (1.0-2.1); ALBUMIN 3.8 g/dL (3.5-5.0); ALT/SGPT 22 U/L (21-72); AST/SGOT 25 U/L (17-59); BLOOD UREA NITROGEN 12 mg/dL (9-20); CALCIUM 8.9 mg/dl (8.6-10.4); GFR NON-AFRICAN AMERICAN > 60
[2018-05-17 07:42] LABS: HEMOGLOBIN 11.7 g/dL (12.0-18.0); MEAN CELL VOLUME 85.5 fL (80.0-94.0); MEAN CORPUSCULAR HEMOGLOBIN 30.2 pg (27.0-31.0); MEAN CORPUSCULAR HGB CONC 35.3 g/dL (33.0-37.0); MEAN PLATELET VOLUME 7.6 fL (7.2-11.7); RBC 3.86 Mil/uL (4.40-5.90); RED CELL DISTRIBUTION WIDTH 13.7 % (11.5-14.5); WHITE BLOOD COUNT 8.5 K/uL (4.8-10.8)
[2018-05-17] MEDS: Metoprolol Succinate 100 mg XL Tab PO SCH (10:29)
[2018-05-17] MEDS: Sacubitril/Valsartan 49-51 Tab PO SCH ×2 (10:30→17:35)
--- NOTE | 2018-05-17 11:35 | PN ---
DATE: 05/17/2018 SUBJECTIVE: He is resting in bed. He has a Parra catheter in place today. It is a punch colored urine. I believe the urologist now wants to put CBI in with an extra medicine called He is on Cordarone, Entresto, Flomax, eplerenone, and Toprol. He is eating okay. PHYSICAL EXAMINATION: GENERAL: He has 98.1 temperature, 61 pulse, 101/69 blood pressure, 20 respiratory rate, 94% O2 sat on room air. HEENT: His head is atraumatic, normocephalic. HEART: Regular rate. LUNGS: Decreased breath sounds. ABDOMEN: Morbidly obese, soft, and nontender. EXTREMITIES: No edema. He has a got a Parra catheter in place with punch liquid. LABORATORY DATA: He has 8.5 white count, hemoglobin down to 11.7, hematocrit 33, platelets are 223. He was bleeding a lot the other day. It is now down to punch. He has a 135 sodium, potassium 4.5, BUN 12, creatinine 1, GFR is greater than 60, sugar is 94, calcium is 8.9, total bilirubin is 0.5. AST is 25, ALT is 22, alk phos 69, total protein 6.5. PLAN: We will get CBI again with Urology. We will check his labs tomorrow. He really wants to go home, but he is not done with a bleeding bladder. Umair Aparicio DO MTDD
[2018-05-18 08:34] LABS: HEMOGLOBIN 11.7 g/dL (12.0-18.0); MEAN CORPUSCULAR HEMOGLOBIN 29.6 pg (27.0-31.0); MEAN CORPUSCULAR HGB CONC 34.8 g/dL (33.0-37.0); MEAN PLATELET VOLUME 7.8 fL (7.2-11.7); RBC 3.96 Mil/uL (4.40-5.90); RED CELL DISTRIBUTION WIDTH 13.8 % (11.5-14.5)
[2018-05-18 08:44] LABS: ALB/GLOB RATIO 1.5 (1.0-2.1); ALBUMIN 4.1 g/dL (3.5-5.0); ALT/SGPT 13 U/L (21-72); AST/SGOT 26 U/L (17-59); BLOOD UREA NITROGEN 14 mg/dL (9-20); CALCIUM 9.2 mg/dl (8.6-10.4); GFR NON-AFRICAN AMERICAN > 60
[2018-05-18 09:49] VITALS: O2SAT 96
[2018-05-18] MEDS: Metoprolol Succinate 100 mg XL Tab PO SCH (09:56)
[2018-05-18] MEDS: Sacubitril/Valsartan 49-51 Tab PO SCH ×2 (09:56→17:30)
--- NOTE | 2018-05-18 11:48 | PN ---
DATE: 05/18/2018 SUBJECTIVE: He is resting in bed. He has CBI running. He has alum and the CBI fluid. The urine on the other side is very clear now. So, the bleeding has stopped. He is on alum, Cordarone, Entresto, Toprol, Flonase, and eplerenone. He wants to go home. We put a call out to Dr. Lozano, urologist, to see if we could stop the Parra and the CBI and watch him urinate. If it is clear, I think he could be discharged later, up to the urologist though. PHYSICAL EXAMINATION: VITAL SIGNS: Temperature 98.4, 55 pulse, 103/60 blood pressure, 20 respiratory rate, and 98% O2 sat on room air. HEENT: Head is atraumatic and normocephalic. HEART: Regular rate. LUNGS: Decreased breath sounds, but clear. ABDOMEN: Soft, obese, nontender. EXTREMITIES: No edema. Definitely improved today with the alum. LABORATORY DATA: White count 8, 11.7 hemoglobin, 33.6 hematocrit, 221 platelets. INR is 1.1. He has 134 sodium, potassium 3.9, BUN 14, creatinine 0.9, GFR is greater than 60, sugars is 92, calcium is 9.2, total bili is 0.78, AST is 26, ALT is 30, alk phos 58, total protein is 6.8. He is being seen by Dr. Lozano, urologist. As per Dr. Lozano for his hematuria and urinary retention, he has the CBI right now. Umair Aparicio DO
[2018-05-18 16:02] VITALS: BP 106/74; PULSE 64; TEMP 98.7
--- NOTE | 2018-05-18 21:01 | OP ---
PROCEDURE DATE: 05/16/2018 SURGEON: Felton Lozano MD DESCRIPTION OF PROCEDURE: The patient was brought to the OR because of gross hematuria. The patient had previous episodes of hematuria as well. At this point, the patient was re-evaluated and a cystoscopy was done, which revealed patent prostatic urethra with irregular lateral lobes secondary to previous embolization of the prostate glands. Exact position of the bleeding was not identified and because of this, the cystoscope in place, there was no further evidence of the exact bleeding point as described. There was some clot that was removed with introduction of the cystoscope. At this point, there was no evidence of any active bleeding or blood clots. A #24 three-way Parra was then inserted with 30 mL in the balloon and bladder. The irrigation was started with initial bleeding; however, this cleared in a period of 10 minutes with totally clear irrigation. No further bleeding. The Parra and irrigation were continued. The patient will be transferred to [address] [place] [address]. Felton Lozano MD
== END 2018-05-18 21:04 | disposition home or self-care (01) | DRG 669 ==
LOC: C.ER 15:54 → C.9E 18:06 → C.3T 18:17 → C.6T 18:30 → C.3T 18:40 → OBSVTOIN 05-13 18:00
PROVIDERS: ADMIT Family Medicine; ATTEND Family Medicine
PROC: 0TC78ZZ Extirpation of Matter from Left Ureter, Via Natural or Artificial Opening Endoscopic (ICD-10-PCS; 2018-05-13)
PROC: 0T9C8ZZ Drainage of Bladder Neck, Via Natural or Artificial Opening Endoscopic (ICD-10-PCS; principal; 2018-05-16 11:00)
DX: N32.89 Other specified disorders of bladder (principal); Z68.41 Body mass index [BMI] 40.0-44.9, adult; R33.9 Retention of urine, unspecified; R31.9 Hematuria, unspecified; E66.01 Morbid (severe) obesity due to excess calories; I10 Essential (primary) hypertension; I48.91 Unspecified atrial fibrillation; F12.90 Cannabis use, unspecified, uncomplicated; Z87.891 Personal history of nicotine dependence

== ENCOUNTER 2018-05-20 20:41 | Inpatient (IN) | payer OTHER ==
[2018-05-20 20:41] VITALS: BMI 40.8
--- NOTE | 2018-05-20 21:07 | C.PDOC ---
History Of Present Illness Patient presents to the ED in severe urinary retention. Patient recently had 3 way ji removed, howevere since he has unable to void and passing some clots. Dr. Lozano called upon patient's arrival. Patient denies fever, chills, nausea, vomit, diarrhea, rash. Time Seen by Provider: 05/20/18 21:06 Chief Complaint (Nursing): Male Genitourinary History Per: Patient History/Exam Limitations: no limitations Onset/Duration Of Symptoms: Hrs Current Symptoms Are (Timing): Still Present Severity: Severe Pain Scale Rating Of: 7 Quality Of Discomfort: "Pain" Associated Symptoms: Urinary Symptoms. denies: Nausea, Vomiting, Diarrhea Recent travel outside of the [place]: No Additional History Per: Patient Past Medical History Reviewed: Historical Data, Nursing Documentation, Vital Signs Vital Signs: Last Vital Signs Temp 98.1 F 05/20/18 20:53 Pulse 76 05/20/18 20:53 Resp 18 05/20/18 20:53 BP 142/94 H 05/20/18 20:53 Pulse Ox 99 05/20/18 20:53 - Medical History PMH: Atrial Fibrillation, HTN Denies: Chronic Kidney Disease Surgical History: No Surg Hx - [facility] Procedures CONTROL BLEEDING IN GENITOURINARY TRACT, ENDO (03/15/17) DESTRUCTION OF BLADDER NECK, ENDO (02/12/17) DRAINAGE OF BLADDER NECK, ENDO (05/13/18) DRAINAGE OF BLADDER WITH DRAINAGE DEVICE, VIA OPENING (10/14/17) EXCISION OF PROSTATE, VIA OPENING, DIAGN (02/12/17) EXTIRPATION OF MATTER FROM LEFT URETER, ENDO (05/13/18) INSERT INDWELLING CATH (03/10/14) Family History: States: Unknown Family Hx - Social History Hx Tobacco Use: No Hx Alcohol Use: Yes Hx Substance Use: No - Immunization History Hx Tetanus Toxoid Vaccination: No Hx Influenza Vaccination: No Hx Pneumococcal Vaccination: No Review Of Systems Constitutional: Negative for: Fever, Chills Cardiovascular: Negative for: Chest Pain Respiratory: Negative for: Cough, Shortness of Breath Gastrointestinal: Positive for: Abdominal Pain. Negative for: Nausea, Vomiting Genitourinary: Positive for: Hematuria, Other (urinary retention) Skin: Negative for: Rash Neurological: Negative for: Weakness, Numbness Physical Exam - Physical Exam Appears: Non-toxic, In Acute Distress Skin: Warm, Dry Head: Normacephalic Eye(s): bilateral: Normal Inspection Neck: Supple Chest: Symmetrical Cardiovascular: Rhythm Regular Respiratory: No Rales, No Rhonchi, No Wheezing Gastrointestinal/Abdominal: Soft, Distention, No Guarding Extremity: Bilateral: Atraumatic, Normal Color And Temperature, Normal ROM Neurological/Psych: Oriented x3, Normal Speech, Normal Cognition Gait: Steady ED Course And Treatment O2 Sat by Pulse Oximetry: 99 (On RA) Pulse Ox Interpretation: Normal Progress Note: Plan: - Labs. - IV fluids. Palced a [address] catheter with no difficulty. large amount of clots and hematuria drained, patient rpeorts relief. Patient tolerated procedure well. spoke with dr lozano and instructed to add some alum to the irrigation. will see the pt Disposition Discussed With .: Umair Aparicio Comment: accepted the pt on his service and took over the care at 10pm Doctor Will See Patient In The: Hospital Counseled Patient/Family Regarding: Studies Performed, Diagnosis - Disposition Disposition: HOSPITALIZED Disposition Time: 21:07 Condition: FAIR Forms: [employer] (Vietnamese) - POA Present On Arrival: None - Clinical Impression Clinical Impression: Acute urinary retention, Hematuria - Scribe Statement The provider has reviewed the documentation as recorded by the Scribe Kayode Harrison All medical record entries made by the Scribe were at my direction and personally dictated by me. I have reviewed the chart and agree that the record accurately reflects my personal performance of the history, physical exam, medical decision making, and the department course for this patient. I have also personally directed, reviewed, and agree with the discharge instructions and disposition. Decision To Admit - Pt Status Changed To: Hospital Disposition Of: Inpatient - Admit Certification Admit to Inpatient:: After my assessment, the patient will require hospitalization for at least two midnights. This is because of the severity of symptoms shown, intensity of services needed, and/or the medical risk in this patient being treated as an outpatient. - InPatient: Physician Admission Certification: I certify that this patient requires 2 or more midnights of care for the following reason:: After my assessment, the patient will require hospitalization for at least two midnights. This is because of the severity of symptoms shown, intensity of services needed, and/or the medical risk in this patient being treated as an outpatient. - . Bed Request Type: Regular Admitting Physician: Umair Aparicio Patient Diagnosis: Acute urinary retention, Hematuria
[2018-05-20] MEDS ORDERED: Lidocaine 2% Jelly (Uro-Jet) TOP ONE (21:20)
[2018-05-20] MEDS ORDERED: Lidocaine 2% Jelly (Uro-Jet) ONE (21:22)
[2018-05-20] MEDS ORDERED: Sodium Chloride 0.9% 1,000 ML IV SCH (21:45)
[2018-05-20] MEDS ORDERED: [UNRECOGNIZED DRUG - OTHER] IR ONE ×2 (22:00)
[2018-05-20] MEDS ORDERED: AMMONIUM ALUM IR ONE (22:00)
[2018-05-20] MEDS ORDERED: SODIUM CHLORIDE 0.9% IR ONE (22:00)
[2018-05-20 22:21] LABS: BASO % 0.5 % (0.0-2.0); EOS % 0.5 % (0.0-4.0); HEMOGLOBIN 11.8 g/dL (12.0-18.0); LYMPH # 1.7 K/uL (1.0-4.3); LYMPH % 17.4 % (20.0-40.0); MEAN CELL VOLUME 84.7 fL (80.0-94.0); MEAN CORPUSCULAR HGB CONC 34.2 g/dL (33.0-37.0); MEAN PLATELET VOLUME 7.7 fL (7.2-11.7); MONO # 0.7 K/uL (0.0-0.8); MONO % 7.3 % (0.0-10.0); NEUT # 7.2 K/uL (1.8-7.0); NEUT % 74.3 % (50.0-75.0); RBC 4.08 Mil/uL (4.40-5.90); RED CELL DISTRIBUTION WIDTH 13.8 % (11.5-14.5); WHITE BLOOD COUNT 9.7 K/uL (4.8-10.8)
[2018-05-20 22:40] LABS: INR 1.1; PROTHROMBIN TIME 11.7 SECONDS (9.7-12.2)
[2018-05-20 22:51] LABS: ALB/GLOB RATIO 1.5 (1.0-2.1); ALBUMIN 4.1 g/dL (3.5-5.0); ALT/SGPT 16 U/L (21-72); AST/SGOT 32 U/L (17-59); BLOOD UREA NITROGEN 12 mg/dL (9-20); CALCIUM 9.4 mg/dl (8.6-10.4); GFR NON-AFRICAN AMERICAN > 60
[2018-05-21 06:37] LABS: ALB/GLOB RATIO 1.5 (1.0-2.1); ALBUMIN 3.8 g/dL (3.5-5.0); ALT/SGPT 18 U/L (21-72); AST/SGOT 34 U/L (17-59); BLOOD UREA NITROGEN 11 mg/dL (9-20); CALCIUM 8.4 mg/dl (8.6-10.4); GFR NON-AFRICAN AMERICAN > 60
[2018-05-21 07:13] LABS: BASO % 0.4 % (0.0-2.0); EOS # 0.1 K/uL (0.0-0.7); EOS % 0.8 % (0.0-4.0); HEMOGLOBIN 10.7 g/dL (12.0-18.0); LYMPH % 23.2 % (20.0-40.0); MEAN CELL VOLUME 85.8 fL (80.0-94.0); MEAN CORPUSCULAR HEMOGLOBIN 29.6 pg (27.0-31.0); MEAN CORPUSCULAR HGB CONC 34.4 g/dL (33.0-37.0); MEAN PLATELET VOLUME 7.7 fL (7.2-11.7); MONO # 0.5 K/uL (0.0-0.8); MONO % 6.1 % (0.0-10.0); NEUT % 69.5 % (50.0-75.0); NRBC % 0.1 % (0.0-2.0); RBC 3.63 Mil/uL (4.40-5.90); RED CELL DISTRIBUTION WIDTH 14.1 % (11.5-14.5); WHITE BLOOD COUNT 8.6 K/uL (4.8-10.8)
--- NOTE | 2018-05-21 08:30 | HP ---
HISTORY OF PRESENT ILLNESS: I saw Navid in room 653 at the [facility]. He comes in again. He was recently discharged with hematuria and urinary retention. He comes in with severe urinary retention, also with hematuria. He has had this before. The urologist was called. He was passing blood clots, very uncomfortable. PAST MEDICAL HISTORY: Atrial fibrillation, hypertension, urinary retention, elevated PSA, chronic kidney disease. He had multiple cystoscopes, TURPs, stents. Obstruction of the bladder neck, excision of the prostate. He has had multiple Parra catheters. SOCIAL HISTORY: No smoking. Occasional alcohol. No drugs. REVIEW OF SYSTEMS: No acute vision or hearing changes. No sore throat. No chest pain or palpitations. No shortness of breath or cough. Lower abdominal discomfort. He has had urinary retention, passing blood clots, has hematuria. No skin issues. No reactions or ulcers. He moves all four extremities and very much discomfort situation he is in. PHYSICAL EXAMINATION: VITAL SIGNS: He has a 98.1 temperature, pulse 76, 110/70 blood pressure, 18 respiratory rate, 99% O2 sat. GENERAL: He is alert, comfortable, oriented x3, in bed. At this time, the Parra catheter is in CBI. He is nontoxic, not in acute distress at this time, but he was when he came in very uncomfortable. Very low abdominal pain. SKIN: Warm and dry. No apparent rashes or ulcers. HEENT: Head is atraumatic and normocephalic. Extraocular muscles are intact. Throat is moist. NECK: Supple. HEART: Regular rate. Normal S1 and S2. LUNGS: Decreased breath sounds. There are no wheezes, rhonchi, or rales. ABDOMEN: At this time, soft and nontender. Positive bowel sounds. No guarding, rebound, or CVA tenderness, but when he came in, he had distention of the bladder. EXTREMITIES: No edema in the lower extremities. We moves all four extremities well. Thyroid midline. No palpable appreciable lymphadenopathy. He had multiple tattoos done. LABORATORY DATA: He has a 135 sodium potassium 3.6, BUN 12, creatinine 1.1, GFR is greater than 60, sugar is 106, calcium 9.4, total bili is 0.3, AST is 32, ALT is 16, alk phos is 74, total protein is 6.9. INR is 1.1. He has a 9.7 white count; hemoglobin down to 11.8, two days ago this was 13.5; hematocrit 34.5; platelets are 282. ASSESSMENT AND PLAN: Keep an eye on his hemoglobin level. There is a consult with Dr. Lozano. He is the urologist. He is on alum with continuous bladder irrigation. He is on Cordarone, valsartan, amiodarone, Entresto, eplerenone, Flomax, intravenous fluids, which we will decrease to 40. He has got Toradol for pain, metoprolol, and we will check his labs this morning and tomorrow. As per Urology, he is comfortable now with the continuous bladder irrigation. Umair Aparicio DO
[2018-05-21] MEDS: Metoprolol Succinate 100 mg XL Tab PO SCH (09:19)
[2018-05-21] MEDS: Sacubitril/Valsartan 49-51 Tab PO SCH ×2 (09:20→17:25)
[2018-05-21] MEDS: Sodium Chloride 0.9% 1,000 ML IV SCH (09:21)
[2018-05-21] MEDS ORDERED: EPLERENONE PO SCH (10:00)
[2018-05-21] MEDS ORDERED: Potassium Chloride 20 mEq ER Tab PO ONE (14:18)
[2018-05-22] MEDS: Sacubitril/Valsartan 49-51 Tab PO SCH ×2 (09:51→18:37)
[2018-05-22] MEDS: EPLERENONE 25MG TABLET PO SCH (09:52)
[2018-05-22] MEDS: Metoprolol Succinate 100 mg XL Tab PO SCH (09:53)
[2018-05-23 01:18] VITALS: RESP 20
--- NOTE | 2018-05-23 03:45 | DS ---
CHIEF COMPLAINT: He is resting comfortably in bed. CBI is running. He is on Cordarone, Entresto, Flomax, potassium, eplerenone, IV fluids, Toprol, and Toradol. He is going to be moved to [facility] for a procedure of his prostate. PHYSICAL EXAMINATION: VITAL SIGNS: He has a 97.9 temperature, 68 pulse, 98/57 blood pressure, 20 respiratory rate, 97% O2 sat on room air. HEENT: Head is atraumatic, normocephalic. HEART: Regular rate. LUNGS: Decreased breath sounds, but clear. ABDOMEN: Soft, obese, nontender. EXTREMITIES: No edema. LABORATORY DATA: He has a 8.6 white count, 10.7 hemoglobin, 31.1 hematocrit, 231 platelets. INR is 1.1. He has a 135 sodium, potassium 3.4, potassium was replaced, BUN 11, creatinine 1, GFR is greater than 50, sugars 99, calcium 8.4. Total bili is 0.4, AST is 34, ALT is 80, alk phos 65, albumin 3.8. PLAN: I want to go to labs for this morning but he was already being discharged yesterday. He should be discharged today as per Dr. Lozano, the urologist and hoping he will do very well at [place]. Continue with bladder irrigation and CBI and his urine is quite good at this time. Umair Aparicio DO
--- NOTE | 2018-05-23 09:41 | DS ---
HISTORY OF PRESENT ILLNESS: Awaiting for bed, going to I believe at [facility]. He is on a CBI for his bladder. He has history of hematuria, urinary retention and elevated PSA. He is on Cordarone, Entresto, Flomax, eplerenone, IV fluids, and Toprol. PHYSICAL EXAMINATION: VITAL SIGNS: He has a 97.7 temperature, 70 pulse, 122/71 blood pressure, 20 respiratory rate, 94% O2 sat on room air. HEENT: Head is atraumatic and normocephalic. HEART: Regular rate. LUNGS: Decreased breath sounds, but clear. ABDOMEN: Soft, obese, nontender. EXTREMITIES: No edema. CBI is running and has clear urine. He is very uncomfortable here. He wants to move to the next hospital, so we started getting the procedure done, going to have blood test in two days. Paperwork is being discharged. I will order blood again, just in case he does not leave the hospital today. I will put a discharge order in and hopefully, he will get to [place] today as per the urologist, Dr. Lozano. Trying to arrange the transfer. Umair Aparicio DO
[2018-05-23] MEDS: Sacubitril/Valsartan 49-51 Tab PO SCH ×2 (09:44→18:30)
[2018-05-23] MEDS: Metoprolol Succinate 100 mg XL Tab PO SCH (09:44)
[2018-05-23] MEDS: EPLERENONE 25MG TABLET PO SCH (09:45)
[2018-05-23] MEDS: Sodium Chloride 0.9% 1,000 ML IV SCH (15:18)
[2018-05-23 18:06] VITALS: BP 102/61; PULSE 55; TEMP 98.6; O2SAT 97
== END 2018-05-23 23:31 | disposition short-term general hospital (02) | DRG 696 ==
LOC: C.ER 20:41 → C.6T 22:21
PROVIDERS: ADMIT Family Medicine; ATTEND Family Medicine
DX: R33.9 Retention of urine, unspecified (principal); I48.91 Unspecified atrial fibrillation; I12.9 Hypertensive chronic kidney disease with stage 1 through stage 4 chronic kidney disease, or unspecified chronic kidney disease; R31.9 Hematuria, unspecified; R97.20 Elevated prostate specific antigen [PSA]; N18.9 Chronic kidney disease, unspecified

== ENCOUNTER 2018-06-13 20:26 | Observation (INO) | payer OTHER | END 2018-06-15 10:55 | disposition home or self-care (01) | LOC: C.ER 20:26 → C.5S 22:38 | PROVIDERS: ADMIT Family Medicine | CPT/HCPCS: 36415; 36430; 80053; 81001; 85025; 85027; 85610; 85730; 86850; 86900; 86920; 93005; 99285; G0378; J7030; P9051 ==

== ENCOUNTER 2018-06-19 02:56 | Emergency (ER) | payer OTHER ==
[2018-06-19 02:57] VITALS: BMI 40.8
[2018-06-19 04:01] LABS: SQUAMOUS EPITHIAL < 1 /hpf (0-5); URINE BACTERIA RARE (<OCC); URINE BILIRUBIN NEGATIVE (NEGATIVE); URINE BLOOD 3+ (NEGATIVE); URINE CLARITY Hazy (Clear); URINE COLOR Yellow (YELLOW); URINE GLUCOSE (UA) NORMAL (Normal); URINE LEUKOCYTE ESTERASE 3+ Leu/uL (Negative); URINE PROTEIN 2+ mg/dL (NEGATIVE); URINE UROBILINOGEN NORMAL mg/dL (0.2-1.0)
--- NOTE | 2018-06-19 04:45 | C.PDOC ---
History Of Present Illness 58 year old male presents complaining of urinary retention. Patient recently had TURP done, reports he had indwelling ji catheter for 6 weeks, yesterday had it taken out and was observed in the office for a long time to make sure he was passing urine which he was able to. This evening he felt like he could not urinate, states the urge to go got worse prompting visit. Denies fever or other symptoms. Time Seen by Provider: 06/19/18 03:10 Chief Complaint (Nursing): Male Genitourinary History Per: Patient History/Exam Limitations: no limitations Onset/Duration Of Symptoms: Hrs Current Symptoms Are (Timing): Still Present Associated Symptoms: denies: Fever Alleviating Factors: None Past Medical History Reviewed: Historical Data, Nursing Documentation, Vital Signs Vital Signs: Last Vital Signs Temp 97.9 F 06/19/18 03:07 Pulse 93 H 06/19/18 03:07 Resp 20 06/19/18 03:07 BP 148/96 H 06/19/18 03:07 Pulse Ox 98 06/19/18 03:07 Primary Care Provider: Felton Lozano - Medical History PMH: Atrial Fibrillation, HTN, Pulmonary Embolism (3 WEEKS AGO) Denies: Chronic Kidney Disease - [facility] Procedures CONTROL BLEEDING IN GENITOURINARY TRACT, ENDO (03/15/17) DESTRUCTION OF BLADDER NECK, ENDO (02/12/17) DRAINAGE OF BLADDER NECK, ENDO (05/13/18) DRAINAGE OF BLADDER WITH DRAINAGE DEVICE, VIA OPENING (10/14/17) EXCISION OF PROSTATE, VIA OPENING, DIAGN (02/12/17) EXTIRPATION OF MATTER FROM LEFT URETER, ENDO (05/13/18) INSERT INDWELLING CATH (03/10/14) Family History: States: Unknown Family Hx - Social History Hx Tobacco Use: No Hx Alcohol Use: No (occassional) Hx Substance Use: No - Immunization History Hx Tetanus Toxoid Vaccination: No Hx Influenza Vaccination: No Hx Pneumococcal Vaccination: No Review Of Systems Constitutional: Negative for: Fever, Chills Gastrointestinal: Positive for: Abdominal Pain. Negative for: Nausea, Vomiting Genitourinary: Positive for: Other (Retention) Musculoskeletal: Negative for: Back Pain Physical Exam - Physical Exam Appears: Well, Non-toxic, No Acute Distress Skin: Normal Color, Warm Head: Atraumatic, Normacephalic Eye(s): bilateral: Normal Inspection Gastrointestinal/Abdominal: Soft, Tenderness (Suprapubic), No Guarding, No Rebound, Other (Unable to determine if distended or normal body habitus) Back: No CVA Tenderness Neurological/Psych: Oriented x3, Normal Speech ED Course And Treatment - Laboratory Results Lab Results: Urine Color Yellow (YELLOW) 06/19/18 03:29 Urine Clarity Hazy (Clear) 06/19/18 03:29 Urine pH 5.0 (5.0-8.0) 06/19/18 03:29 Ur Specific [place] 1.011 (1.003-1.030) 06/19/18 03:29 Urine Protein 2+ mg/dL (NEGATIVE) H 06/19/18 03:29 Urine Glucose (UA) Normal mg/dL (Normal) 06/19/18 03:29 Urine Ketones Negative mg/dL (NEGATIVE) 06/19/18 03:29 Urine Blood 3+ (NEGATIVE) H 06/19/18 03:29 Urine Nitrate Positive (NEGATIVE) H 06/19/18 03:29 Urine Bilirubin Negative (NEGATIVE) 06/19/18 03:29 Urine Urobilinogen Normal mg/dL (0.2-1.0) 06/19/18 03:29 Ur Leukocyte Esterase 3+ Candis/uL (Negative) H 06/19/18 03:29 Urine WBC (Auto) 103 /hpf (0-5) H 06/19/18 03:29 Urine RBC (Auto) 50 /hpf (0-3) H 06/19/18 03:29 Ur Squamous Epith Cells < 1 /hpf (0-5) 06/19/18 03:29 Urine Bacteria Rare (<OCC) 06/19/18 03:29 Urine Yeast (Budding) Occ /hpf (NEGATIVE) H 06/19/18 03:29 O2 Sat by Pulse Oximetry: 98 (Room air) Pulse Ox Interpretation: Normal Medical Decision Making Medical Decision Makin gauge ji was inserted without difficulty with 700cc of cloudy urine drai sascha with improvement of pain, UA sent and was positive for infection, patient stated on cipro, dc with leg bag and instructions to follow up with urologist tomorrow. Disposition Counseled Patient/Family Regarding: Diagnosis, Need For Followup, Rx Given - Disposition Disposition: HOME/ ROUTINE Disposition Time: 04:56 Condition: STABLE Prescriptions: Ciprofloxacin HCl [Cipro] 500 mg PO BID 10 Days tab Instructions: Urinary Tract Infections in Adults Forms: [facility] (Thai), General Discharge Instructions - Clinical Impression Clinical Impression: Urinary retention, Urinary tract infection - PA / [employer]K ROUTE DEL[employer]ER / Resident Statement MD/DO has reviewed & agrees with the documentation as recorded. - Scribe Statement The provider has reviewed the documentation as recorded by the Scribe Hu Whitaker All medical record entries made by the Fordibelli were at my direction and personally dictated by me. I have reviewed the chart and agree that the record accurately reflects my personal performance of the history, physical exam, medical decision making, and the department course for this patient. I have also personally directed, reviewed, and agree with the discharge instructions and disposition.
[2018-06-19 05:21] VITALS: BP 148/80; PULSE 90; RESP 18; TEMP 98
[2018-06-19 06:05] VITALS: O2SAT 98
== END 2018-06-19 05:31 | disposition home or self-care (01) ==
LOC: C.ER 02:56
DX: N39.0 Urinary tract infection, site not specified (principal); R33.9 Retention of urine, unspecified; I10 Essential (primary) hypertension; I48.91 Unspecified atrial fibrillation; Z86.711 Personal history of pulmonary embolism

== ENCOUNTER 2018-06-19 23:24 | Emergency (ER) | payer OTHER ==
[2018-06-19 23:24] VITALS: BMI 40.8
[2018-06-19 23:31] VITALS: TEMP 98.4
[2018-06-20] MEDS ORDERED: Sodium Chloride 0.9% 500 ML IV ONE ×2 (01:42→01:58)
[2018-06-20 02:06] LABS: BASO # 0.1 K/uL (0.0-0.2); BASO % 0.7 % (0.0-2.0); EOS # 0.1 K/uL (0.0-0.7); EOS % 0.8 % (0.0-4.0); HEMOGLOBIN 9.5 g/dL (12.0-18.0); LYMPH # 1.8 K/uL (1.0-4.3); LYMPH % 23.2 % (20.0-40.0); MEAN CELL VOLUME 80.2 fL (80.0-94.0); MEAN CORPUSCULAR HEMOGLOBIN 26.9 pg (27.0-31.0); MEAN CORPUSCULAR HGB CONC 33.5 g/dL (33.0-37.0); MEAN PLATELET VOLUME 6.9 fL (7.2-11.7); MONO # 0.5 K/uL (0.0-0.8); NEUT # 5.5 K/uL (1.8-7.0); NEUT % 69.3 % (50.0-75.0); RBC 3.53 Mil/uL (4.40-5.90); RED CELL DISTRIBUTION WIDTH 16.4 % (11.5-14.5)
[2018-06-20 02:17] LABS: INR 1.2; PARTIAL THROMBOPLASTIN TIME 30.6 SECONDS (21-34)
[2018-06-20 02:25] LABS: BLOOD UREA NITROGEN 18 mg/dL (9-20); CALCIUM 9.6 mg/dl (8.6-10.4); GFR NON-AFRICAN AMERICAN > 60
[2018-06-20 02:51] VITALS: BP 108/63; PULSE 75; RESP 16; O2SAT 100
--- NOTE | 2018-06-20 03:28 | C.PDOC ---
History Of Present Illness 58 year old male presents with hematuria since 9pm. Patient had indwelling ji catheter placed yesterday here in the ER, found to have UTI, and started on ciprofloxin which he has been compliant with. He has Hx of TURP on 05/14/[address] Lozano and prior Hx of hematuria in the past. Denies fever or chills. Time Seen by Provider: 06/19/18 23:33 Chief Complaint (Nursing): Male Genitourinary History Per: Patient History/Exam Limitations: no limitations Onset/Duration Of Symptoms: Mins Current Symptoms Are (Timing): Still Present Quality Of Discomfort: Unable To Describe Associated Symptoms: Other (Hematuria). denies: Fever, Chills Recent travel outside of the [place]: No Past Medical History Reviewed: Historical Data, Nursing Documentation, Vital Signs Vital Signs: Last Vital Signs Temp 98.4 F 06/20/18 02:50 Pulse 75 06/20/18 02:50 Resp 16 06/20/18 02:50 BP 108/63 06/20/18 02:50 Pulse Ox 100 06/20/18 02:50 Primary Care Provider: Umair Aparicio - Medical History PMH: Atrial Fibrillation, HTN, Pulmonary Embolism (3 WEEKS AGO) Denies: Chronic Kidney Disease - [facility] Procedures CONTROL BLEEDING IN GENITOURINARY TRACT, ENDO (03/15/17) DESTRUCTION OF BLADDER NECK, ENDO (02/12/17) DRAINAGE OF BLADDER NECK, ENDO (05/13/18) DRAINAGE OF BLADDER WITH DRAINAGE DEVICE, VIA OPENING (10/14/17) EXCISION OF PROSTATE, VIA OPENING, DIAGN (02/12/17) EXTIRPATION OF MATTER FROM LEFT URETER, ENDO (05/13/18) INSERT INDWELLING CATH (03/10/14) Family History: States: Unknown Family Hx - Social History Hx Tobacco Use: No Hx Alcohol Use: Yes (occassional) Hx Substance Use: No - Immunization History Hx Tetanus Toxoid Vaccination: No Hx Influenza Vaccination: No Hx Pneumococcal Vaccination: No Review Of Systems Except As Marked, All Systems Reviewed And Found Negative. Gastrointestinal: Positive for: Abdominal Pain Genitourinary: Positive for: Hematuria Physical Exam - Physical Exam Appears: Non-toxic, Other (Uncomfortable) Skin: Normal Color, Warm Head: Atraumatic, Normacephalic Eye(s): bilateral: Normal Inspection Oral Mucosa: Moist Neck: Normal, Supple Chest: Symmetrical, No Tenderness Cardiovascular: Rhythm Regular Respiratory: Normal Breath Sounds, No Rales, No Rhonchi, No Wheezing Gastrointestinal/Abdominal: Soft, Tenderness (Suprapubic), Distention (Suprapubic), No Guarding, No Rebound, Other (Negative mcburney's) Male Genital: Other (reddish tinged urine in ji) Neurological/Psych: Oriented x3, Normal Speech ED Course And Treatment - Laboratory Results Result Diagrams: 06/20/18 02:03 06/20/18 02:03 Lab Results: PT 13.0 SECONDS (9.7-12.2) H 06/20/18 02:03 INR 1.2 06/20/18 02:03 APTT 30.6 SECONDS (21-34) 06/20/18 02:03 O2 Sat by Pulse Oximetry: 100 (Room air) Pulse Ox Interpretation: Normal Progress Note: Bladder scan showed 250ml of urine, RN tired to irrigate existing ji with no success, I inserted a three way ji for continuous bladder irrigation. Disposition Counseled Patient/Family Regarding: Studies Performed, Diagnosis, Need For Followup - Disposition Referrals: Umair Aparicio DO [Staff Provider] - Disposition: HOME/ ROUTINE Disposition Time: 03:35 Condition: STABLE Additional Instructions: FOLLOW UP WITH DR LOZANO WITHIN 1 WEEK CONTINUE YOUR ANTIBIOTICS RETURN TO ER IF YOUR SYMPTOMS WORSEN Instructions: Blood in the Urine (Hematuria), Adult (DC) Forms: [facility] (Persian) Print Language: TRISTANIAN - Clinical Impression Clinical Impression: Hematuria - Scribe Statement The provider has reviewed the documentation as recorded by the Scribelli Whitaker All medical record entries made by the Fordibelli were at my direction and personally dictated by me. I have reviewed the chart and agree that the record accurately reflects my personal performance of the history, physical exam, medical decision making, and the department course for this patient. I have also personally directed, reviewed, and agree with the discharge instructions and disposition.
== END 2018-06-20 04:11 | disposition home or self-care (01) ==
LOC: C.ER 23:24
DX: R31.9 Hematuria, unspecified (principal); I10 Essential (primary) hypertension; I48.91 Unspecified atrial fibrillation; Z86.711 Personal history of pulmonary embolism
CPT/HCPCS: 51702; 80048; 85025; 85610; 85730; 99285; J7040

== ENCOUNTER 2018-06-20 08:39 | Emergency (ER) | payer OTHER ==
[2018-06-20 08:49] VITALS: BMI 38.9
[2018-06-20 08:52] VITALS: RESP 18
--- NOTE | 2018-06-20 09:43 | C.PDOC ---
History Of Present Illness 58 y/o male presents to ED complaining that his ji catheter has not been draining since 6:30am this morning. He reports that he previously had catheter flushed after it started filling with blood. Also complains that he feels a stabbing pain on his penis. He denies any abdominal pain, nausea, vomiting, fever, back pain, or other complaints at this time. Time Seen by Provider: 06/20/18 09:16 Chief Complaint (Nursing): Male Genitourinary History Per: Patient History/Exam Limitations: no limitations Onset/Duration Of Symptoms: Hrs Current Symptoms Are (Timing): Still Present Past Medical History Reviewed: Historical Data, Nursing Documentation, Vital Signs Vital Signs: Last Vital Signs Temp 99.2 F 06/20/18 08:49 Pulse 77 06/20/18 08:49 Resp 18 06/20/18 08:49 BP 97/66 L 06/20/18 08:49 Pulse Ox 97 06/20/18 08:49 Primary Care Provider: Umair Aparicio - Medical History PMH: Atrial Fibrillation, HTN, Pulmonary Embolism (3 WEEKS AGO) Denies: Chronic Kidney Disease - [facility] Procedures CONTROL BLEEDING IN GENITOURINARY TRACT, ENDO (03/15/17) DESTRUCTION OF BLADDER NECK, ENDO (02/12/17) DRAINAGE OF BLADDER NECK, ENDO (05/13/18) DRAINAGE OF BLADDER WITH DRAINAGE DEVICE, VIA OPENING (10/14/17) EXCISION OF PROSTATE, VIA OPENING, DIAGN (02/12/17) EXTIRPATION OF MATTER FROM LEFT URETER, ENDO (05/13/18) INSERT INDWELLING CATH (03/10/14) Family History: States: No Known Family Hx - Social History Hx Tobacco Use: No Hx Alcohol Use: Yes (occassional) Hx Substance Use: No - Immunization History Hx Tetanus Toxoid Vaccination: No Hx Influenza Vaccination: No Hx Pneumococcal Vaccination: No Review Of Systems Except As Marked, All Systems Reviewed And Found Negative. Constitutional: Negative for: Fever, Chills Gastrointestinal: Negative for: Nausea, Vomiting, Abdominal Pain Genitourinary: Positive for: Other (no draining from ji catheter) Musculoskeletal: Negative for: Back Pain Physical Exam - Physical Exam Appears: Non-toxic, No Acute Distress Skin: Warm, Dry Head: Normacephalic Eye(s): bilateral: Normal Inspection Oral Mucosa: Moist Neck: Supple Cardiovascular: Rhythm Regular, No Murmur Respiratory: Normal Breath Sounds, No Rales, No Rhonchi, No Wheezing Gastrointestinal/Abdominal: Soft, No Tenderness Back: No CVA Tenderness Extremity: Bilateral: Atraumatic, Normal ROM Neurological/Psych: Oriented x3, Normal Speech ED Course And Treatment O2 Sat by Pulse Oximetry: 97 (RA) Pulse Ox Interpretation: Normal Medical Decision Making Medical Decision Making: Plan: --Irrigation of ji catheter Catheter draining bloody at first with no clots, then clear. 400cc Patient complains of discomfort. Lab scan ordered. New catheter placed, 500cc drained. Patient states he feels much better and relieved of symptoms. Disposition Counseled Patient/Family Regarding: Diagnosis, Need For Followup - Disposition Referrals: Felton Lozano MD [Staff Provider] - Disposition: HOME/ ROUTINE Disposition Time: 12:41 Condition: IMPROVED Instructions: Urinary Retention (DC), Ji Catheter, Male Forms: [facility] (Bolivian), General Discharge Instructions - POA Present On Arrival: None - Clinical Impression Clinical Impression: Urinary retention - Scribe Statement The provider has reviewed the documentation as recorded by the Fordibelli Klein Provider Attestation: All medical record entries made by the Fordibe were at my direction and personally dictated by me. I have reviewed the chart and agree that the record accurately reflects my personal performance of the history, physical exam, medical decision making, and the department course for this patient. I have also personally directed, reviewed, and agree with the discharge instructions and disposition.
[2018-06-20 13:55] VITALS: BP 109/64; PULSE 70; TEMP 98.9; O2SAT 98
== END 2018-06-20 13:55 | disposition home or self-care (01) ==
LOC: C.ER 08:39
DX: R33.9 Retention of urine, unspecified (principal)

== ENCOUNTER 2018-06-21 11:59 | Observation (INO) | payer OTHER ==
[2018-06-21 11:59] VITALS: BMI 38.9
[2018-06-21] MEDS ORDERED: Sodium Chloride 0.9% 1,000 ML IV ONE (12:49)
[2018-06-21 13:31] LABS: BASO # 0.1 K/uL (0.0-0.2); BASO % 0.7 % (0.0-2.0); EOS # 0.1 K/uL (0.0-0.7); EOS % 0.8 % (0.0-4.0); HEMOGLOBIN 10.1 g/dL (12.0-18.0); LYMPH # 1.1 K/uL (1.0-4.3); LYMPH % 14.2 % (20.0-40.0); MEAN CELL VOLUME 80.5 fL (80.0-94.0); MEAN CORPUSCULAR HEMOGLOBIN 26.8 pg (27.0-31.0); MEAN CORPUSCULAR HGB CONC 33.2 g/dL (33.0-37.0); MEAN PLATELET VOLUME 7.4 fL (7.2-11.7); MONO # 0.5 K/uL (0.0-0.8); MONO % 6.5 % (0.0-10.0); NEUT # 6.3 K/uL (1.8-7.0); NEUT % 77.8 % (50.0-75.0); RBC 3.77 Mil/uL (4.40-5.90); RED CELL DISTRIBUTION WIDTH 16.3 % (11.5-14.5); WHITE BLOOD COUNT 8.1 K/uL (4.8-10.8)
--- NOTE | 2018-06-21 13:34 | C.PDOC ---
History Of Present Illness 58 y/o male presents to ED complaining of hematuria and passing clots. Patient has had multiple evaluations for same, is concerned of urinary retention s/p second TURP in May. Patient is on eliquis due to underlying questionable paroxysmal a-fib and DVT, PE. Time Seen by Provider: 06/21/18 12:34 Chief Complaint (Nursing): Male Genitourinary History Per: Patient History/Exam Limitations: no limitations Onset/Duration Of Symptoms: Days Current Symptoms Are (Timing): Still Present Past Medical History Reviewed: Historical Data, Nursing Documentation, Vital Signs Vital Signs: Last Vital Signs Temp 99 F 06/21/18 12:09 Pulse 82 06/21/18 12:09 Resp 20 06/21/18 12:09 BP 104/75 06/21/18 12:09 Pulse Ox 97 06/21/18 12:09 Primary Care Provider: Umair Aparicio - Medical History PMH: Atrial Fibrillation, HTN, Pulmonary Embolism (3 WEEKS AGO) Denies: Chronic Kidney Disease - [facility] Procedures CONTROL BLEEDING IN GENITOURINARY TRACT, ENDO (03/15/17) DESTRUCTION OF BLADDER NECK, ENDO (02/12/17) DRAINAGE OF BLADDER NECK, ENDO (05/13/18) DRAINAGE OF BLADDER WITH DRAINAGE DEVICE, VIA OPENING (10/14/17) EXCISION OF PROSTATE, VIA OPENING, DIAGN (02/12/17) EXTIRPATION OF MATTER FROM LEFT URETER, ENDO (05/13/18) INSERT INDWELLING CATH (03/10/14) Family History: States: No Known Family Hx - Social History Hx Tobacco Use: No Hx Alcohol Use: Yes (occassional) Hx Substance Use: No - Immunization History Hx Tetanus Toxoid Vaccination: No Hx Influenza Vaccination: No Hx Pneumococcal Vaccination: No Review Of Systems Except As Marked, All Systems Reviewed And Found Negative. Constitutional: Negative for: Fever, Chills Gastrointestinal: Negative for: Nausea, Vomiting, Abdominal Pain Genitourinary: Positive for: Hematuria Musculoskeletal: Negative for: Back Pain Physical Exam - Physical Exam Appears: Non-toxic, No Acute Distress, Other (morbidly obese) Skin: Warm, Dry Head: Atraumatic, Normacephalic Eye(s): bilateral: Normal Inspection Oral Mucosa: Moist Neck: Supple Cardiovascular: Rhythm Regular, No Murmur Respiratory: Normal Breath Sounds, No Rales, No Rhonchi, No Wheezing Gastrointestinal/Abdominal: Soft, No Tenderness, No Distention Male Genital: Other (ji cath in place, draining mild blood-tinged urine) Extremity: Bilateral: Atraumatic, Normal ROM Neurological/Psych: Oriented x3, Normal Speech ED Course And Treatment - Laboratory Results Result Diagrams: 06/21/18 13:27 06/21/18 13:27 Lab Interpretation: Abnormal (ua 5500 RBC's, 50 WBC's) ECG: Interpreted By Me ECG Rhythm: Sinus Rhythm ECG Interpretation: Normal Rate From EC O2 Sat by Pulse Oximetry: 97 (RA) Pulse Ox Interpretation: Normal - Radiology CXR: Interpreted by Me CXR Interpretation: Yes: No Acute Disease Reevaluation Time: 13:57 Reassessment Condition: Improved (urine clearing in leg bag) - Physician Consult Information Outcome Of Conversation: 1300: d/w Dr. Kaity Aparicio- jhoana to med/surg obs. 1300: d/w Dr. Antonia Lozano, urology- [place] to consult Medical Decision Making Medical Decision Making: Plan: --EKG --Labs --Chest XR --IV fluids 1L --UA frequent hematuria due to Eliquis for AF/DVT/PE since May 2018 Was off Eliquis Oct-> April 2018 self-d/c'd due to frequent hematuria 2nd TURP April 2018 with typical occ bleeding sequella today is 4th ED visit this wk Hgb stable 10 observe for urine clearing Eliquis for AF, now NSR 57 ? paroxysmal AF Disposition Doctor Will See Patient In The: Hospital Counseled Patient/Family Regarding: Studies Performed, Diagnosis - Disposition Disposition: HOSPITALIZED Disposition Time: 14:35 Condition: GOOD - Clinical Impression Clinical Impression: Hematuria - Scribe Statement The provider has reviewed the documentation as recorded by the Ashlie Klein Provider Attestation: All medical record entries made by the Ashlie were at my direction and personally dictated by me. I have reviewed the chart and agree that the record a ccurately reflects my personal performance of the history, physical exam, medical decision making, and the department course for this patient. I have also personally directed, reviewed, and agree with the discharge instructions and disposition.
[2018-06-21 13:36] LABS: URINE BILIRUBIN NEGATIVE (NEGATIVE); URINE BLOOD 3+ (NEGATIVE); URINE CLARITY Hazy (Clear); URINE COLOR Red (YELLOW); URINE GLUCOSE (UA) NORMAL (Normal); URINE LEUKOCYTE ESTERASE 2+ Leu/uL (Negative); URINE PROTEIN 2+ mg/dL (NEGATIVE); URINE UROBILINOGEN NORMAL mg/dL (0.2-1.0)
[2018-06-21 13:39] LABS: INR 1.3; PARTIAL THROMBOPLASTIN TIME 30.3 SECONDS (21-34); PROTHROMBIN TIME 14.4 SECONDS (9.7-12.2)
[2018-06-21 13:58] LABS: ALB/GLOB RATIO 1.2 (1.0-2.1); ALBUMIN 4.4 g/dL (3.5-5.0); ALT/SGPT 19 U/L (21-72); AST/SGOT 22 U/L (17-59); BLOOD UREA NITROGEN 11 mg/dL (9-20); CALCIUM 9.6 mg/dl (8.6-10.4); GFR NON-AFRICAN AMERICAN > 60
--- NOTE | 2018-06-21 14:45 | RAD ---
Date of service: 06/21/2018 HISTORY: SOB COMPARISON: Comparison chest dated 10/13/2017. TECHNIQUE: 1 view obtained. FINDINGS: LUNGS: No active pulmonary disease. PLEURA: No significant pleural effusion identified, no pneumothorax apparent. CARDIOVASCULAR: No aortic atherosclerotic calcification present. Cardiomegaly. No pulmonary vascular congestion. OSSEOUS STRUCTURES: Mild multilevel degenerative spondylosis of the thoracic spine. VISUALIZED UPPER ABDOMEN: Normal. OTHER FINDINGS: None. IMPRESSION: No active disease. The
[2018-06-21 16:39] VITALS: RESP 20
[2018-06-21] MEDS: Sacubitril/Valsartan 24-26mg Tab PO SCH (18:30)
[2018-06-21] MEDS: Ciprofloxacin 400mg/200ml D5W 400 MG/200 ML BAG IVPB SCH (21:00)
[2018-06-21] MEDS: Sodium Chloride 0.45% 1,000 ML IV SCH (21:01)
--- NOTE | 2018-06-22 05:05 | HP ---
HISTORY OF PRESENT ILLNESS: He has been back and forth to the hospital over the past six weeks. He is having hematuria, passed lots of blood clots. This has been going back and forth for a while now. He sees Dr. Lozano. He also saw Dr. Allan for TURP in the past two weeks. He has been on Eliquis due to a pulmonary embolus. He also has atrial fibrillation. He is presently worried and gets a little bit scared when he gets the blood in the Parra catheter and now he is back here. He has UTIs and is on Cipro on the outpatient for that. He has atrial fibrillation, hypertension, pulmonary embolus, and chronic kidney disease. He has had multiple urinary tract infections and obstruction of the bladder neck. He had drainage of the bladder neck. He had multiple excisions to the prostate and insertion of indwelling Parra. FAMILY HISTORY: No family history. SOCIAL HISTORY: Occasional alcohol. No smoking. No drugs. MEDICATIONS: He is currently on Cipro, Cordarone, Eliquis, Entresto, eplerenone, Flomax, and Toprol. ALLERGIES: HE IS ALLERGIC TO PENICILLIN. He has been following Dr. Lozano, the outpatient urologist was consulted in. REVIEW OF SYSTEMS: No acute vision or hearing changes. No sore throat. No neck pain. No chest pain. No palpitation. No shortness of breath or cough. No nausea, vomiting, constipation, or diarrhea. He is having hematuria in the Parra leg bag. It has been on and off for a couple of weeks now, but got relieved. There were clots, which he gets scared and came to the emergency room. No back pain. PHYSICAL EXAMINATION: VITAL SIGNS: Temperature 99, pulse 82, respirations 20, blood pressure 104/75, and 97% O2 saturations on room air. HEENT: Head: Atraumatic, normocephalic. Extraocular muscles are intact. Throat is moist. NECK: Supple. No JVD. No meningeal signs. Thyroid midline. No palpable appreciable lymphadenopathy. HEART: Regular rate. LUNGS: Decreased breath sounds. No wheezes. No rhonchi. No rales. ABDOMEN: Soft and nontender. Positive bowel sounds. No guarding, no rebound, and no CVA tenderness. He is morbidly obese. He has a Parra catheter in place with leg bag, which is now draining yellow clear urine, about 2 hours ago it was bloody with clots. EXTREMITIES: No edema. NEUROLOGIC: He is alert and oriented x 3, pleasant, calm, upset that he is here. LABORATORY DATA: EKG reveals normal sinus rhythm, 57 beats per minute. Chest x-ray showed no active disease. He had 8.1 white count, 10.1 hemoglobin, 30.3 hematocrit, and 365 platelets. His urine was red, 2+ protein, 3+ blood, 5505 red blood cells in the urine when he came in, 138 sodium, potassium 4.1, BUN 11, creatinine 0.9, GFR is greater than 60, sugar is 102, calcium is 9.6. Total bili is 0.4, AST is 22, ALT is 19, alkaline phosphatase 80. Troponin I is less than 0.012. BNP is 31, total protein is 7.9, albumin 4.4. INR is 1.3, white count 8.1, hemoglobin 10.1, hematocrit 30.3, and platelets 265. IMPRESSION AND PLAN: He has a hematuria in a Parra leg bag. He had multiple urinary tract infections. For now, I put him on Cipro intravenous while he is in the hospital. He is for intravenous fluids and intravenous Cipro. Watching his hematuria and his hemoglobin level. We had a consult with Dr. Lozano, his urologist. We will watch him very closely. tomorrow with 24-hour observation for hematuria and urinary tract infection. Umair Aparicio DO MTDD
[2018-06-22 07:31] LABS: HEMOGLOBIN 9.4 g/dL (12.0-18.0); MEAN CELL VOLUME 80.8 fL (80.0-94.0); MEAN CORPUSCULAR HEMOGLOBIN 26.6 pg (27.0-31.0); RBC 3.53 Mil/uL (4.40-5.90); RED CELL DISTRIBUTION WIDTH 16.4 % (11.5-14.5); WHITE BLOOD COUNT 5.9 K/uL (4.8-10.8)
[2018-06-22 07:56] VITALS: BP 114/71; PULSE 55; TEMP 98; O2SAT 97
[2018-06-22 08:12] LABS: ALB/GLOB RATIO 1.2 (1.0-2.1); ALBUMIN 3.8 g/dL (3.5-5.0); ALT/SGPT 26 U/L (21-72); AST/SGOT 19 U/L (17-59); BLOOD UREA NITROGEN 11 mg/dL (9-20); CALCIUM 9.2 mg/dl (8.6-10.4); GFR NON-AFRICAN AMERICAN > 60
[2018-06-22] MEDS: Ciprofloxacin 400mg/200ml D5W 400 MG/200 ML BAG IVPB SCH (08:51)
[2018-06-22] MEDS ORDERED: EPLERENONE PO SCH (10:00)
[2018-06-22] MEDS ORDERED: Metoprolol Succinate 100 mg XL Tab PO SCH (10:00)
[2018-06-22] MEDS: Sacubitril/Valsartan 24-26mg Tab PO SCH (10:04)
[2018-06-22] MEDS: Sodium Chloride 0.45% 1,000 ML IV SCH (10:07)
[2018-06-22] MEDS ORDERED: Pneumococcal 23-Valent Vaccine IM ONE (11:30)
--- NOTE | 2018-06-23 07:12 | DS ---
HOSPITAL COURSE: It was an observation level of care. Came in yesterday with bloody urine, hematuria, he has had it before. He has had TURP recently in the past 2 or 3 weeks. He also has pulmonary embolism. He is also on Eliquis. He is on IV fluids, Cipro IV for the meantime, Cordarone, Eliquis, Entresto, eplerenone, Flomax, IV fluids, and Toprol. He is doing much better. The urine is clear. I discussed him with Dr. Lozano, the urologist. He will be discharged today. He will be on the same medication at home; Cipro will be p.o. and has what he has to do. PHYSICAL EXAMINATION: VITAL SIGNS: He has temperature 98, pulse 85, blood pressure 114/71, respiratory rate 20, and 97% O2 saturations on room air. HEENT: Head is atraumatic and normocephalic. HEART: Regular rate. LUNGS: Decreased breath sounds, but clear. ABDOMEN: Soft, obese, nontender. EXTREMITIES: No edema. He has a leg bag with clear yellow urine. LABORATORY DATA: He has a 5.9 white count, 9.4 hemoglobin, 28.5 hematocrit with 307 platelets. INR is 1.3. He has got 138 sodium, potassium 4.5, BUN 11, creatinine 0.9, GFR is greater than 60, sugars 98, calcium is 9.2, total bilirubin is 0.3, AST is 19, ALT is 26, alkaline phosphatase 73. Troponin I was less than 0.0120. BNP was 31. Total protein 6.9, albumin is 3.8. PLAN: He has gross hematuria when he came in. He will be discharged today. He has his medications. He will follow up as outpatient with Dr. Aparicio, Dr. Lozano, and Dr. Leach, and hopefully, he will continue to do very well, hematuria. Umair Aparicio DO [facility]ER CENTERKalina
--- NOTE | 2018-06-23 13:21 | CARD ---
APPROVED REPORT Date of service: 06/21/2018 EKG Measurement Heart [id number] <Conclusion> Sinus bradycardia Incomplete right bundle branch block Left anterior fascicular block Nonspecific T wave abnormality Abnormal ECG
== END 2018-06-22 12:20 | disposition home or self-care (01) ==
LOC: C.ER 11:59 → C.9E 14:35 → C.3T 15:52
PROVIDERS: ADMIT Family Medicine; ATTEND Family Medicine
DX: R31.9 Hematuria, unspecified (principal); I48.91 Unspecified atrial fibrillation; I12.9 Hypertensive chronic kidney disease with stage 1 through stage 4 chronic kidney disease, or unspecified chronic kidney disease; N18.9 Chronic kidney disease, unspecified; Z79.01 Long term (current) use of anticoagulants; Z87.440 Personal history of urinary (tract) infections
CPT/HCPCS: 36415; 71045; 80053; 81001; 83880; 84484; 85025; 85027; 85610; 85730; 93005; 99285; G0378; J0744; J7030